=== PATIENT | female | born 1960 | race Caucasian/White ===

== ENCOUNTER 2016-11-15 18:00 | Inpatient (IN) | payer MEDICAID, MEDICARE ==
[2016-11-15] MEDS ORDERED: MAG HYDROX/AL HYDROX/SIMETH 30 ML CUP PO PRN (23:38)
[2016-11-15] MEDS ORDERED: MAGNESIUM HYDROXIDE 2,400 MG/10 ML CUP PO PRN (23:38)
[2016-11-15] MEDS ORDERED: ACETAMINOPHEN TAB 325 MG TAB PO PRN (23:38)
[2016-11-15] MEDS ORDERED: OLANZapine ODT 5 MG TAB PO PRN (23:43)
[2016-11-15] MEDS ORDERED: LORazepam 1 MG TAB PO PRN (23:46)
[2016-11-15] MEDS ORDERED: ZIPRASIDONE 20 MG CAP PO PRN (23:47)
[2016-11-15] MEDS ORDERED: LORazepam 2 MG/ML SYRINGE IM PRN (23:49)
[2016-11-15] MEDS ORDERED: ZIPRASIDONE 20 MG VIAL IM PRN (23:51)
[2016-11-16] MEDS ORDERED: ZIPRASIDONE 20 MG VIAL IM ONE (08:53)
[2016-11-16] MEDS ORDERED: WATER FOR INJECTION, STERILE 10 ML IV ONE (08:53)
[2016-11-16] MEDS: THYROID, PORK 30 MG TAB PO SCH (14:12)
[2016-11-16] MEDS: risperiDONE 1 MG TAB PO SCH ×2 (14:25→20:30)
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
[2016-11-16] MEDS: LISINOPRIL 20 MG TAB PO SCH (15:36)
[2016-11-17] MEDS: THYROID, PORK 30 MG TAB PO SCH (06:20)
[2016-11-17] MEDS: LISINOPRIL 20 MG TAB PO SCH (08:48)
[2016-11-17] MEDS: risperiDONE 1 MG TAB PO SCH ×2 (08:48→20:32)
--- NOTE | 2016-11-17 11:23 | P.PN ---
Progress Note - Text Interval history: The patient is found in her room she follows me to an interview room. The patient was admitted for an acute exacerbation of her psychosis with manic symptoms. She is known to this mental health service due to previous admissions. She has been restarted on Risperdal 1 mg twice daily she has been complying with it. She voices some concern that the Wellbutrin was held. Yesterday the patient was observed in the hallway quite agitated and irritable. That has improved somewhat today. She continues to be very delusional she continues to feel that the [employer] is persecuting her a number of different ways. This has been an ongoing delusion for her for several years. Mental status exam: The patient is an overweight female appearing her stated age. She is dressed in her own clothing her sweatshirt has stains on the front of the shirt. Eye contact is appropriate she has constant ongoing pressured speech. She will continue to talk if uninterrupted. Thought process is not well organized she demonstrates loose associations and tangential thinking. She continues to endorse persecutory delusions involving the [employer] and many other individuals. She states that the [employer] is able to telepathically review her thoughts. Insight and judgment are poor. She demonstrates no verbal or physical aggressiveness during this session. No abnormal involuntary movements observed. Plan: The patient has just been started on Risperdal 1 mg twice daily this will likely need further titration. We will monitor her for safety and encourage her appropriate participation in the milieu. When possible we will provide reality orientation. Vital signs reviewed.
[2016-11-18] MEDS: THYROID, PORK 30 MG TAB PO SCH (07:59)
[2016-11-18] MEDS: risperiDONE 1 MG TAB PO SCH ×2 (10:31→20:18)
[2016-11-18] MEDS: LISINOPRIL 20 MG TAB PO SCH (10:31)
--- NOTE | 2016-11-18 11:16 | P.PN ---
Progress Note - Text Interval history: The patient is found in the hallway she follows me to an interview room. She reports her mood is "good". His documented that she only slept 5 hours. She reports appetite is stable. She was observed attending groups this morning. She is feeling less irritable. She feels that the Risperdal was helpful but is resistant to the idea of titrating the dose further. Mental status exam: The patient is alert she is an overweight female appearing her stated age. She is dressed in the same clothing as yesterday. Speech is fluent spontaneous. She is less pressured and more easily directed during the session. She does continue to have the same fixed beliefs that are paranoid and persecutory in nature however she is much less agitated than previous days. Insight and judgment chronically limited. She demonstrates no verbal or physical aggressiveness. She is demonstrating no abnormal involuntary movements. She is oriented to person place and date. She denies having any suicidal or homicidal ideation intent or plan. Affect is constricted. Plan: The patient will continue on her current medication. She does appear improved in terms of affect lability and irritability. Psychosis persists but she does have psychosis at baseline. We will consider titrating the Risperdal further if needed. We will monitor her for safety and encourage her appropriate participation in the milieu.
[2016-11-19] MEDS: THYROID, PORK 30 MG TAB PO SCH (06:36)
[2016-11-19] MEDS: risperiDONE 1 MG TAB PO SCH ×2 (09:15→20:33)
[2016-11-19] MEDS: LISINOPRIL 20 MG TAB PO SCH (09:15)
--- NOTE | 2016-11-19 20:10 | PN ---
DATE OF SERVICE: 11/19/2016 CHIEF COMPLAINT: The patient was admitted due to increasing problems with paranoid delusions. She had focus on the [employer] being involved in her life in multiple ways. She believed that [employer] was doing nefarious things in the community and at her home. She believed that she was controlled by the [employer] and that they were stalking her and trying to murder family members. INTERVAL HISTORY: Patient has been doing fair. She had a quiet evening last night. She slept 5 hours. Today she has been up and about. She has been attending groups. In general, she has been fairly appropriate in most groups; however, in social skills group this afternoon she became very disruptive. She used hostile language. She was accusing staff and peers of abusing others. She made delusional statements. She was quite intense. She was asked to leave the group, which she did. Since then she has been fairly quiet. When I talked to the patient after that, she still was quite focused on paranoid thoughts. She talked extensively about the [employer] and various plots they had against her and others. She has not had change in her general health. She felt that the medication she was on was helping. She tolerated her psychotropic medications. MENTAL STATUS: The patient gave fair eye contact. Psychomotor activity was a little restless. Speech was clear. She answered some questions directly. She tended to ramble. She had almost flight of ideas, where she talked continuously at a somewhat rapid pace. Her thoughts were primarily delusional in nature, making any number of reference to things the [employer] was doing. She had loose association. Her affect was intense and anxious, her mood dysphoric. She was significantly distressed. ASSESSMENT AND PLAN: I will continue the current diagnosis and treatment plan. Will continue to make efforts to engage the patient is individual and group therapeutic activities. I will continue the patient on Risperdal. I will increase her dose from 1 mg twice a day to 3 mg twice a day. She also is prescribed Ativan p.r.n. We need to obtain lab work from a recent evaluation she had in [place]. Will continue to focus on stabilization and discharge planning. [facility]
[2016-11-20] MEDS: THYROID, PORK 30 MG TAB PO SCH (06:48)
[2016-11-20] MEDS: LISINOPRIL 20 MG TAB PO SCH (09:21)
[2016-11-20] MEDS: risperiDONE 1 MG TAB PO SCH ×2 (09:22→20:26)
[2016-11-21] MEDS: THYROID, PORK 30 MG TAB PO SCH (06:05)
[2016-11-21] MEDS: risperiDONE 1 MG TAB PO SCH ×2 (09:13→21:06)
[2016-11-21] MEDS: LISINOPRIL 20 MG TAB PO SCH (09:14)
--- NOTE | 2016-11-21 13:26 | PN ---
DATE OF SERVICE: 11/20/2016 CHIEF COMPLAINT: The patient was admitted due to increasing problems with paranoid delusions. She had focus on the [employer] being involved in her life in multiple ways. She believes that [employer] was doing various things in the community and at her home. She believes that she was being controlled by the [employer] and that they were stalking her and trying to murder family members. INTERVAL HISTORY: The patient has been doing fair. She had a quiet evening last night. She slept fairly well. Today she has been up and about. She does attend some groups. She comes out in the day area. She does not interact too much with others. Overall she seems to be a little more comfortable. She has voiced less in the way of thoughts about [employer] or other thoughts outside of reality. Her mood is somewhat improved. She feels that the combination of medications she is on is helpful. She is reluctant to make any changes in the doses. She has not had change in her general health. She tolerates psychotropic medications. MENTAL STATUS: The patient gave fair eye contact. Psychomotor activity was a little slow. Speech was somewhat monotone. She answered questions appropriately. Her thoughts were clear. She had a constricted affect. Her mood was reserved. It is difficult to say if she was in distress. She voiced less in the way of outright paranoid thinking compared to yesterday. ASSESSMENT: I will continue the current diagnosis and treatment plan. The patient will continue Risperdal just at 1 mg twice a day rather than the increase I had planned for yesterday. She is reluctant to increase medications , inspite of her continuing to have paranoid ideation. She will continue Wellbutrin XL 300 mg a day. The patient appears to be making progress. One significant issue is what follow up she will be able to attain, insurance issues are problematic for her in terms of getting appropriate follow thru [facility]. We will continue to focus on coordinating with outpatient resources for follow-up care. SUPRIYA
[2016-11-21] MEDS ORDERED: buPROPion XL 150 MG TAB.ER.24H PO SCH (21:00)
[2016-11-22] MEDS: THYROID, PORK 30 MG TAB PO SCH (06:36)
[2016-11-22 06:45] VITALS: BP 151/59; PULSE 86; RESP 20; TEMP 98.1
--- NOTE | 2016-11-22 10:10 | PN ---
DATE OF SERVICE: 11/21/2016 CHIEF COMPLAINT: The patient was admitted due to increasing problems with paranoid delusions. She had focused on the [employer] being involved in her life in multiple ways. She believes the [employer] was doing various things in the community and at her home. She believes that she was being controlled by the [employer] and that they were stalking her and trying to murder family members. INTERVAL HISTORY: The patient has been doing fair. She had a quiet evening last night. She slept fairly well. Today she has been up and about. She tends to keep to herself. She has been attending most groups and generally has been appropriate. Today she says that she is in a very good mood. She feels that she has made progress. She also feels that her medications have been helping her as far as having clear thoughts and a better outlook. She remains quite adamant about the idea that she does not want to make any changes in her medication doses. She feels the combination of Risperdal and Wellbutrin serve her best. She has not had change in her general health. She tolerates psychotropic medications. MENTAL STATUS: The patient gave good eye contact. Psychomotor activity was a little restless. Speech was clear. She answered questions with brief responses. Her affect was within reasonable range. She smiled. She was quite a bit more positive in her manner compared to how she was yesterday. She did not appear to be distress. ASSESSMENT: I will continue the current diagnosis and treatment plan. I will continue psychotropic medications the same. The patient is presenting in a much more positive mood today. It is unclear what contributes to the fairly significant change from yesterday. Main focus is on setting up discharge planning. The patient would have some preference of going to community mental health though she is not currently on Medicaid though she would be eligible. She talks about her preference of not returning to her home but rather moving to a foster home which is not an option due to insurance issues and her not being connected to [facility]. We will continue to focus on setting up discharge plan and coordinate with outpatient resources for follow- up care. SUPRIYA
[2016-11-22] MEDS: risperiDONE 1 MG TAB PO SCH (10:24)
[2016-11-22] MEDS: LISINOPRIL 20 MG TAB PO SCH (10:24)
[2016-11-22] MEDS ORDERED: LORazepam 0.5 MG TAB PO PRN (11:42)
--- NOTE | 2016-11-23 22:49 | DS ---
DATE OF ADMISSION: 11/15/2016 DATE OF ADMISSION: 11/22/2016 ADMISSION AND DISCHARGE DIAGNOSES: 1. Schizophrenia with acute exacerbation. 2. Hypertension. 3. Hypothyroidism. HISTORY OF PRESENTING ILLNESS: The patient has had multiple psychiatric hospitalizations. She presented to the hospital with increasing delusions of paranoid nature. She believed the [employer] was involved in her life in multiple ways. She believed the [employer] was controlling her and controlling people around her. She believed the [employer] was attempting to kill family members. She was having episodes of agitation, irritability, being argumentative. Her mood was depressed. She was significantly distressed relating to her paranoid delusions. She had rambling and disorganized thoughts. She had been taking Risperdal 1 mg twice a day and Wellbutrin 150 mg a day, though had stopped her medications at an unknown point prior to this admission. She was admitted for further evaluation. MEDICAL HISTORY: Patient has a history of hypertension and hypothyroidism. She takes lisinopril and is on thyroid replacement. PHYSICAL EXAM: The patient resisted having a physical exam. Her vital signs were stable. She was ambulatory. There was no indication of respiratory or cardiac signs. MENTAL STATUS EXAM: She was oriented and alert. She appeared in a disheveled manner. Speech was loud. Her thoughts were coherent, logical, though at times circumstantial and tangential. She showed evidence of paranoia. Mood was distressed. COURSE OF HOSPITALIZATION: Patient was admitted for comprehensive medical, psychiatric and psychosocial evaluation. We made efforts to engage the patient in individual and group therapeutic activities. She was continued on Risperdal 1 mg twice a day and Ativan 1 mg 3 times a day p.r.n. Early on in her hospitalization the patient was fairly withdrawn. She continued to be focused on terrible happenings in her life related to the [employer]. She would be out in the day area, though she did not interact much with others. She was quite resistant to attending any groups. She was cooperative. As her hospitalization progressed , the patient seemed to show gradual improvement. She resisted the idea of increasing her Risperdal, as was recommended. Thus she continued just on 1 mg twice a day. She had indicated that she felt Wellbutrin would be helpful to her. She was started on Wellbutrin XL 150 mg a day. After one dose she said that she did not want to continue taking it because it had some negative effects on her thinking. She was not clear on specifics. She noted that when she takes Ativan at night, it helps her sleep, and she believed that taking the Ativan at night plus the Risperdal was helping her improve her thoughts. As her hospitalization progressed she gradually improved, where she was much less focused on paranoid thinking. She was able to interact with others more appropriately. She had a fairly stable sleep pattern. She was able to begin attending some groups, though she declined attending others. She voiced no problems with her medications. Her mood improved to where she was able to show a positive manner. She was able to engage productively in discharge planning. There were some issues with her living situation, as she apparently lives in a family home. She did make contact with her sister and was able to work out a plan for discharge to where she would return home to where she was living, and that with her in the family they would work out further plans beyond that. Patient was able to productively engage in ( ) discharge planning. She showed no difficulties with her medications. CONDITION AT DISCHARGE: Patient was stable. Her mood was improved. She had significant reduction in paranoid thinking and did not actively discuss delusional issues such as the [employer]. She tolerated her medications well. There was no indication of EPS or signs of tardive dyskinesia. RECOMMENDATIONS AND FOLLOWUP: The patient is discharged to home. Discharge medications include: 1. Risperdal 1 mg twice a day. 2. Ativan 0.5 mg 3 times a day p.r.n. In addition, she will continue lisinopril 20 mg a day and [place] Thyroid 180 mg daily. Medicines that she had indicated being on prior to admission that were discontinued included Wellbutrin SR 150 mg a day. She will be seen at [facility] with a follow-up appointment on 11/[address] [facility]
== END 2016-11-22 16:19 | disposition home or self-care (01) | DRG 885 ==
LOC: 3MHU 22:16
PROVIDERS: ADMIT Psychiatry & Neurology Psychiatry; ATTEND Psychiatry & Neurology Psychiatry
DX: F23 Brief psychotic disorder (principal); Z91.14 Patient's other noncompliance with medication regimen; I10 Essential (primary) hypertension; E03.9 Hypothyroidism, unspecified; Z79.899 Other long term (current) drug therapy

== ENCOUNTER 2017-06-10 00:01 | Emergency (ER) | payer MEDICARE, OTHER ==
--- NOTE | 2017-06-10 00:42 | XR ---
EXAMINATION TYPE: XR chest 2V DATE OF EXAM: 06/10/2017 COMPARISON: 03/23/2010 HISTORY: Cough TECHNIQUE: Frontal and lateral views of the chest are obtained. FINDINGS: There is some mild linear density in the lingula left upper lobe. There is no heart failur e. Heart size is normal. There is no pleural effusion. Bony thorax is intact. Heart size is normal. T here is small linear density also in the right midlung. IMPRESSION: Bilateral scarring or subsegmental atelectasis is increased compared to old exam. No hea rt failure. No pulmonary consolidation.
--- NOTE | 2017-06-10 00:44 | ED ---
URI HPI - General Chief Complaint: Upper Respiratory Infection Stated Complaint: infection Time Seen by Provider: 06/10/17 00:12 Source: patient, RN notes reviewed Mode of arrival: ambulatory Limitations: no limitations - History of Present Illness Initial Comments: This is a 56-year-old female presents to the emergency department with chief complaint of "infection." Patient is a very poor historian. She states that she has a cough and shortness of breath. She states that she is a current, every day smoker. She states that she feels like her sinuses are draining. She says that she has had fevers and chills. Denies abdominal pain, nausea or vomiting, diarrhea or constipation. She states that she believes she has a bacterial infection. She requests to have her thyroid checked. She requests to have lab work performed. - Related Data Home Medications Medication Instructions Recorded Confirmed Lisinopril [Prinivil] 20 mg PO DAILY 10/26/15 11/15/16 Thyroid, Pork [[place] Thyroid] 180 mg PO DAILY 11/15/16 11/15/16 Previous Rx's Medication Instructions Recorded risperiDONE [RisperDAL] 1 mg PO DAILY #30 tab 11/01/15 LORazepam [Ativan] 0.5 mg PO TID PRN #90 tab 11/22/16 risperiDONE [RisperDAL] 1 mg PO BID #60 tab 11/22/16 Albuterol Inhaler [Ventolin Hfa 1 - 2 puff INHALATION Q6HR PRN #1 06/10/17 Inhaler] inhaler Azithromycin [Zithromax Z-pack] 0 mg PO DIRECTED #6 tab 06/10/17 Levothyroxine Sodium [Levo-T] 50 mcg PO DAILY #14 tablet 06/10/17 Allergies Allergy/AdvReac Type Severity Reaction Status Date / Time meperidine HCl [From Demerol] Allergy Unknown Verified 06/10/17 00:11 Review of Systems ROS Statement: Those systems with pertinent positive or pertinent negative responses have been documented in the HPI. ROS Other: All systems not noted in ROS Statement are negative. Past Medical History Past Medical History: Hypertension, Thyroid Disorder History of Any Multi-Drug Resistant Organisms: None Reported Additional Past Surgical History / Comment(s): sinus surgery Past Anesthesia/Blood Transfusion Reactions: No Reported Reaction Past Psychological History: Anxiety, Schizoaffective Disorder, Schizophrenia Smoking Status: Current every day smoker Past Alcohol Use History: None Reported Past Drug Use History: None Reported General Exam - General Exam Comments Initial Comments: General: Awake and alert, well-developed; in no apparent distress. Patient is unkempt in appearance. 3 suitcases are present at bedside. HEENT: Head atraumatic, normocephalic. Pupils are equal, round and reactive to light. Extraocular movements intact. Oropharynx moist without erythema or exudate. Neck: Supple. Normal ROM. Cardiovascular: Regular rate and rhythm. No murmurs, rubs or gallops. Chest symmetrical. Respiratory: Normal respiratory effort with no use of accessory muscles. Diffuse rales with diminished airflow throughout. No wheezing or rhonchi. Abdomen: Soft, non-tender, non-distended. No rigidity, rebound or guarding. Normal bowel sounds in all 4 quadrants. Musculoskeletal: Normal ROM, no tenderness bilateral upper and lower extremities. Ambulating normally. Skin: [place], warm and dry without rashes or lesions. Neurological: Alert and oriented x3. CN II-XII grossly intact. Speech is fluent and answers are appropriate. No focal neuro deficits. Psychiatric: Unkempt in appearance. Poor insight and poor historian. Limitations: no limitations Course Vital Signs 06/10/17 00:06 Temperature 97.8 F Pulse Rate 93 Respiratory 18 Rate Blood Pressure 120/77 O2 Sat by Pulse 95 Oximetry Medical Decision Making - Medical Decision Making This is a 56-year-old female who presents to the emergency department with chief complaint of cough. Patient arrives to the emergency department with 3 full suitcases, stating that she knows she is going to be admitted. She states she feels she has a serious bacterial infection. She requests lab work and to have her thyroid checked. Patient's vital signs are stable and she is afebrile. On physical examination, there are diffuse rhonchi and diminished air flow throughout. Patient is in no respiratory distress. Chest x-ray revealed bilateral scarring or subsegmental atelectasis, however no heart failure or pulmonary consolidation. Patient denies any chest pain, abdominal pain, nausea or vomiting. Clinically patient does appear to have bronchitis. She will be started on azithromycin. I recommended steroids but patient refuses. She will also be provided with an albuterol inhaler. Patient requests to have her levothyroxin refilled until she is able to follow-up with her family doctor. She is on levothyroxin 50 g. I will give patient 2 weeks supply. Patient's vital signs are stable and she is in no acute distress. She will be discharged home. She is in agreement and voices understanding. All questions were answered. - Radiology Data Radiology results: report reviewed Chest x-ray impression: Bilateral scarring or subsegmental atelectasis is increased compared to old exam. No heart failure. No pulmonary consolidation. Disposition Clinical Impression: Bronchitis Disposition: HOME SELF-CARE Condition: Good Instructions: Acute Bronchitis (ED), Wheezing (ED) Additional Instructions: Please take medications as prescribed. Please follow up with primary care provider within 1-2 days. Return to emergency department if symptoms should worsen or any concerns arise. Prescriptions: Albuterol Inhaler [Ventolin Hfa Inhaler] 1 - 2 puff INHALATION Q6HR PRN #1 inhaler PRN Reason: Dyspnea Azithromycin [Zithromax Z-pack] 0 mg PO DIRECTED #6 tab Levothyroxine Sodium [Levo-T] 50 mcg PO DAILY #14 tablet Referrals: Ric Berkowitz DO [Primary Care Provider] - 1-2 days Time of Disposition: 00:55
[2017-06-10 01:29] VITALS: BP 130/81; PULSE 82; RESP 18; TEMP 98.1
== END 2017-06-10 01:28 | disposition home or self-care (01) ==
LOC: EC 00:01
DX: J40 Bronchitis, not specified as acute or chronic (principal); I10 Essential (primary) hypertension; E07.9 Disorder of thyroid, unspecified; F17.200 Nicotine dependence, unspecified, uncomplicated; Z79.899 Other long term (current) drug therapy; Z88.8 Allergy status to other drugs, medicaments and biological substances
CPT/HCPCS: 71046; 99283

== ENCOUNTER 2017-06-10 18:01 | Emergency (ER) | payer MEDICARE ==
[2017-06-10 18:31] VITALS: RESP 18; TEMP 98.7
--- NOTE | 2017-06-10 18:54 | ED ---
Psych HPI - General Chief Complaint: Psychiatric Symptoms Stated Complaint: Mental health Time Seen by Provider: 06/10/17 18:32 Source: patient, RN notes reviewed Mode of arrival: ambulatory Limitations: no limitations - History of Present Illness Initial Comments: This a 56-year-old female presents emergency Department chief complaint of psychiatric issues. Patient states that she feels that she needs to be admitted for her depression. Patient is having worsening depression, grief issues. Patient states that she does take medications for depression. Patient states he recently moved back from [place]. Patient states that she was kicked out of her house states that she has no place to live at this time states that she's having heart issues and multiple other social financial issues. Patient states that she wants to be admitted secondary to her depression. Denies any suicidal or homicidal ideation. Denies any illicit drug use no alcohol abuse. - Related Data Home Medications Medication Instructions Recorded Confirmed Albuterol Inhaler [Ventolin Hfa 1 - 2 puff INHALATION RT-Q6H PRN 06/10/17 Inhaler] Azithromycin [Zithromax Z-pack] See Taper PO DIRECTED 06/10/17 06/10/17 risperiDONE [RisperDAL] 2 mg PO HS 06/10/17 06/10/17 Previous Rx's Medication Instructions Recorded Levothyroxine Sodium [Levo-T] 50 mcg PO DAILY #14 tablet 06/10/17 Allergies Allergy/AdvReac Type Severity Reaction Status Date / Time meperidine HCl [From Demerol] Allergy Unknown Verified 06/10/17 18:57 Review of Systems ROS Statement: Those systems with pertinent positive or pertinent negative responses have been documented in the HPI. ROS Other: All systems not noted in ROS Statement are negative. Past Medical History Past Medical History: Hypertension, Thyroid Disorder History of Any Multi-Drug Resistant Organisms: None Reported Additional Past Surgical History / Comment(s): sinus surgery Past Anesthesia/Blood Transfusion Reactions: No Reported Reaction Past Psychological History: Anxiety, Schizoaffective Disorder, Schizophrenia Smoking Status: Current every day smoker Past Alcohol Use History: None Reported Past Drug Use History: None Reported General Exam Limitations: no limitations General appearance: alert, in no apparent distress Head exam: Present: atraumatic, normocephalic, normal inspection Eye exam: Present: normal appearance, PERRL, EOMI. Absent: scleral icterus, conjunctival injection, periorbital swelling ENT exam: Present: normal exam, normal oropharynx, mucous membranes moist, TM's normal bilaterally, normal external ear exam Neck exam: Present: normal inspection, full ROM. Absent: tenderness, meningismus, lymphadenopathy Respiratory exam: Present: normal lung sounds bilaterally. Absent: respiratory distress, wheezes, rales, rhonchi, stridor Cardiovascular Exam: Present: regular rate, normal rhythm, normal heart sounds. Absent: systolic murmur, diastolic murmur, rubs, gallop, clicks GI/Abdominal exam: Present: soft, normal bowel sounds. Absent: distended, tenderness, guarding, rebound, rigid Neurological exam: Present: alert, oriented X3, CN II-XII intact Psychiatric exam: Present: depressed Skin exam: Present: warm, dry, intact, normal color. Absent: rash Course Vital Signs 06/10/17 18:28 Temperature 98.7 F Pulse Rate 78 Respiratory 18 Rate Blood Pressure 124/77 O2 Sat by Pulse 98 Oximetry Medical Decision Making - Medical Decision Making 56-year-old female presented emergency department for psychiatric evaluation. Patient has underlying depression and currently is homeless. Patient was evaluated by EPS case discussed with psychiatrist. Patient also had an intake with [facility] today in which she was not suicidal. Patient will be given a bus ticket to get to the [facility]. Return parameters were discussed. - Lab Data Lab Results 06/10/17 Range/Units 18:50 Urine Opiates Screen Not Detected (NotDetected) Ur Oxycodone Screen Not Detected (NotDetected) Urine Methadone Screen Not Detected (NotDetected) Ur Propoxyphene Screen Not Detected (NotDetected) Ur Barbiturates Screen Not Detected (NotDetected) U Tricyclic Antidepress Not Detected (NotDetected) Ur Phencyclidine Scrn Not Detected (NotDetected) Ur Amphetamines Screen Not Detected (NotDetected) U Methamphetamines Scrn Not Detected (NotDetected) U Benzodiazepines Scrn Not Detected (NotDetected) Urine Cocaine Screen Not Detected (NotDetected) U Marijuana (THC) Screen Not Detected (NotDetected) Disposition Clinical Impression: Depression, Homelessness Disposition: HOME SELF-CARE Condition: Stable Instructions: Depression (ED) Additional Instructions: Please return to the Emergency Department if symptoms worsen or any other concerns. Referrals: Ric Berkowitz DO [Primary Care Provider] - 1-2 days Time of Disposition: 19:56
[2017-06-10 19:10] LABS: Amphetamine Screen,Urine Not Detected (NotDetected); Barbiturate Screen,Urine Not Detected (NotDetected); Benzodiazepines Screen,Urine Not Detected (NotDetected); Cocaine Screen,Urine Not Detected (NotDetected); Methadone Screen, Urine Not Detected (NotDetected); Opiate Screen,Urine Not Detected (NotDetected); Oxycodone Screen, Urine Not Detected (NotDetected); Phencyclidine Screen,Urine Not Detected (NotDetected); Tricyclic Antidepressant,Urine Not Detected (NotDetected); Urn Cannabinoid Scrn Not Detected (NotDetected)
[2017-06-10 20:33] VITALS: BP 159/79; PULSE 106
== END 2017-06-10 20:34 | disposition home or self-care (01) ==
LOC: EC 18:01
DX: F32.9 Major depressive disorder, single episode, unspecified (principal); Z59.0 Homelessness; F20.9 Schizophrenia, unspecified; F41.9 Anxiety disorder, unspecified; F17.200 Nicotine dependence, unspecified, uncomplicated; Z79.899 Other long term (current) drug therapy; Z88.5 Allergy status to narcotic agent
CPT/HCPCS: 80306; 82075; 99284

== ENCOUNTER 2017-11-10 14:11 | Inpatient (IN) | payer MEDICARE, MEDICAID ==
[2017-11-10] MEDS ORDERED: LORazepam 1 MG TAB PO STA (14:43)
--- NOTE | 2017-11-10 14:55 | ED ---
Psych HPI - General Chief Complaint: Psychiatric Symptoms Stated Complaint: Mental Health Time Seen by Provider: 11/10/17 14:34 Source: patient, RN notes reviewed Mode of arrival: ambulatory - History of Present Illness Initial Comments: This is a 57-year-old female who presents to the emergency department for mental health evaluation. Patient states that she is feeling suicidal. She states that the FBI, police and government are after her. She states that they have been doing experiments on her. She states they have been using her thyroid for endocrine studies, have been using electronics and shocking her, and have been doing medication studies on her. She states that she was beautiful and only 120 pounds and walking 10 miles daily. She states that the government has made her fat. She states that [employer] used her to get into the [place]. She states that the [place] police are also after her and are stalking her. She states the Government killed her mother on 04/05/2017. She states that she has an inheritance from her parents after they and that the government is also after her money. Patient states that she does take Risperdal, a thyroid medication and lisinopril. She states that she has been feeling suicidal on and off for the past 4 years. She denies any homicidal ideation. She denies any suicidal plans. Denies illicit drug use but does state that she drinks alcohol occasionally. Denies any recent illnesses or infections. Denies fevers or chills, chest pain or shortness of breath, abdominal pain, nausea or vomiting, diarrhea or constipation, dysuria or hematuria, weakness, numbness, dizziness or headache. - Related Data Home Medications Medication Instructions Recorded Confirmed Amoxicillin 500 mg PO DAILY 11/10/17 11/10/17 Lisinopril [Zestril] 10 mg PO DAILY 11/10/17 11/10/17 risperiDONE ODT [RisperDAL M-TAB] 2 mg PO HS 11/10/17 11/10/17 Previous Rx's Medication Instructions Recorded Levothyroxine Sodium [Levo-T] 50 mcg PO DAILY #14 tablet 06/10/17 Allergies Allergy/AdvReac Type Severity Reaction Status Date / Time meperidine HCl [From Demerol] Allergy Unknown Verified 11/10/17 16:09 olanzapine [From Zyprexa] Allergy Unknown Verified 11/10/17 16:09 paliperidone [From Invega] Allergy Unknown Verified 11/10/17 16:09 Review of Systems ROS Statement: Those systems with pertinent positive or pertinent negative responses have been documented in the HPI. ROS Other: All systems not noted in ROS Statement are negative. Past Medical History Past Medical History: Hypertension, Thyroid Disorder History of Any Multi-Drug Resistant Organisms: None Reported Additional Past Surgical History / Comment(s): sinus surgery Past Anesthesia/Blood Transfusion Reactions: No Reported Reaction Past Psychological History: Anxiety, Schizoaffective Disorder, Schizophrenia Smoking Status: Current every day smoker Past Alcohol Use History: None Reported Past Drug Use History: None Reported General Exam - General Exam Comments Initial Comments: General: Awake and alert, well-developed; in no apparent distress. Disheveled in appearance. HEENT: Head atraumatic, normocephalic. Pupils are equal, round and reactive to light. Extraocular movements intact. Oropharynx moist without erythema or exudate. Neck: Supple. Normal ROM. Cardiovascular: Regular rate and rhythm. No murmurs, rubs or gallops. Chest symmetrical. Respiratory: Lungs clear to auscultation bilaterally. No wheezes, rales or rhonchi. Normal respiratory effort with no use of accessory muscles. Abdomen: Soft, non-tender, non-distended. No rigidity, rebound or guarding. Musculoskeletal: Normal ROM, no tenderness bilateral upper and lower extremities. Ambulating normally. Skin: [place], warm and dry without rashes or lesions. Neurological: Alert and oriented x3. CN II-XII grossly intact. Speech is fluent. No focal neuro deficits. Psychiatric: Paranoid and delusional. Anxious. Hyperverbal. Limitations: no limitations Course Vital Signs 11/10/17 14:13 Temperature 98.7 F Pulse Rate 119 H Respiratory 22 Rate Blood Pressure 151/87 O2 Sat by Pulse 95 Oximetry Medical Decision Making - Medical Decision Making 57-year-old female who presents to the emergency department for mental health evaluation. Patient was evaluated by EPS and they are recommending admission to the psychiatric unit here. Vital signs stable and patient is in no acute distress. - Lab Data Lab Results 11/10/17 Range/Units 14:47 Urine Opiates Screen Not Detected (NotDetected) Ur Oxycodone Screen Not Detected (NotDetected) Urine Methadone Screen Not Detected (NotDetected) Ur Propoxyphene Screen Not Detected (NotDetected) Ur Barbiturates Screen Not Detected (NotDetected) U Tricyclic Antidepress Not Detected (NotDetected) Ur Phencyclidine Scrn Not Detected (NotDetected) Ur Amphetamines Screen Not Detected (NotDetected) U Methamphetamines Scrn Not Detected (NotDetected) U Benzodiazepines Scrn Not Detected (NotDetected) Urine Cocaine Screen Not Detected (NotDetected) U Marijuana (THC) Screen Not Detected (NotDetected) Disposition Clinical Impression: Psychosis Disposition: ADMITTED IP TO THIS HOSP Condition: Fair Is patient prescribed a controlled substance at d/c from ED?: No Referrals: Ric Berkowitz DO [Primary Care Provider] - 1-2 days Time of Disposition: 16:39
[2017-11-10 15:19] LABS: Amphetamine Screen,Urine Not Detected (NotDetected); Barbiturate Screen,Urine Not Detected (NotDetected); Benzodiazepines Screen,Urine Not Detected (NotDetected); Cocaine Screen,Urine Not Detected (NotDetected); Methadone Screen, Urine Not Detected (NotDetected); Opiate Screen,Urine Not Detected (NotDetected); Oxycodone Screen, Urine Not Detected (NotDetected); Phencyclidine Screen,Urine Not Detected (NotDetected); Tricyclic Antidepressant,Urine Not Detected (NotDetected); Urn Cannabinoid Scrn Not Detected (NotDetected)
[2017-11-10] MEDS ORDERED: ZIPRASIDONE 20 MG VIAL IM PRN (17:17)
[2017-11-10] MEDS ORDERED: MAGNESIUM HYDROXIDE 2,400 MG/10 ML CUP PO PRN (17:17)
[2017-11-10] MEDS ORDERED: MAG HYDROX/AL HYDROX/SIMETH 30 ML CUP PO PRN (17:17)
[2017-11-10] MEDS ORDERED: LORazepam 1 MG TAB PO PRN (17:17)
[2017-11-10] MEDS ORDERED: ACETAMINOPHEN TAB 325 MG TAB PO PRN (17:17)
[2017-11-10] MEDS ORDERED: NICOTINE 14MG/24HR PATCH TRANSDERM SCH (17:30)
[2017-11-10 18:27] VITALS: TEMP 98.8; BMI 46.0
[2017-11-10] MEDS ORDERED: LORazepam 2 MG/ML INJ IM PRN (19:16)
[2017-11-10] MEDS ORDERED: risperiDONE ODT 2 MG TAB PO SCH (21:00)
[2017-11-11] MEDS: LEVOTHYROXINE 50 MCG TAB PO SCH (08:28)
[2017-11-11] MEDS: AMOXICILLIN 500 MG CAP PO SCH (08:28)
[2017-11-11] MEDS: LISINOPRIL 10 MG TAB PO SCH (08:28)
[2017-11-11 08:50] LABS: ALT 38 U/L (9-52); AST 20 U/L (14-36); Albumin 3.8 g/dL (3.5-5.0); Alkaline Phosphatase 95 U/L (38-126); Anion Gap 8 mmol/L; Basophils % (A) 1 %; Bilirubin, Delta 0.2 mg/dL (0.0-0.2); Bilirubin,Unconjugated 0.2 mg/dL (0.0-1.1); Blood Urea Nitrogen 15 mg/dL (7-17); Calcium 9.1 mg/dL (8.4-10.2); Carbon Dioxide 25 mmol/L (22-30); Chloride 105 mmol/L (98-107); Cholesterol 169 mg/dL (<200); Eosinophils # (A) 0.4 k/uL (0-0.7); Eosinophils % (A) 7 %; Glucose 122 mg/dL (74-99); HCT 42.5 % (34.0-46.0); HDL Cholesterol 40 mg/dL (40-60); HGB 13.5 gm/dL (11.4-16.0); LDL Cholesterol,Calculated 95 mg/dL (0-99); Lymphocytes # (A) 0.9 k/uL (1.0-4.8); Lymphocytes % (A) 14 %; MCH 29.3 pg (25.0-35.0); MCHC 31.7 g/dL (31.0-37.0); MCV 92.6 fL (80.0-100.0); Mean Platelet Volume 7.2; Monocytes # (A) 0.4 k/uL (0-1.0); Monocytes % (A) 6 %; Neutrophils # (A) 4.6 k/uL (1.3-7.7); Neutrophils % (A) 71 %; Platelet Count 256 k/uL (150-450); Potassium 4.7 mmol/L (3.5-5.1); RBC 4.59 m/uL (3.80-5.40); RDW 13.5 % (11.5-15.5); Sodium 138 mmol/L (137-145); Total Bilirubin 0.4 mg/dL (0.2-1.3); Total Protein 6.1 g/dL (6.3-8.2); Triglycerides 170 mg/dL (<150); WBC 6.5 k/uL (3.8-10.6)
[2017-11-11] MEDS: ARIPiprazole 10 MG TAB PO SCH (09:53)
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
--- NOTE | 2017-11-11 14:20 | CONS ---
CONSULTATION DATE OF SERVICE: 11/11/2017 This 57-year-old woman admitted with multiple medical problems, who refused to be seen in consultation because of psychosis. MMODL / IJN: [id number] /
[2017-11-11 18:16] LABS: Hemoglobin A1C 6.3 % (4.0-6.0)
[2017-11-12] MEDS: LEVOTHYROXINE 50 MCG TAB PO SCH (08:52)
[2017-11-12] MEDS: AMOXICILLIN 500 MG CAP PO SCH (08:52)
[2017-11-12] MEDS: LISINOPRIL 10 MG TAB PO SCH (08:52)
[2017-11-12] MEDS: ARIPiprazole 10 MG TAB PO SCH (08:52)
--- NOTE | 2017-11-12 10:26 | P.MDCNMH ---
History of Present Illness H&P Date: 11/12/17 57-year-old female was admitted to the mental health unit for psychosis and. I. Dr. Berkowitz is the patient's primary care physician and was consulted for medical management. The patient was seen and examined this morning in the mental health unit. The patient remains very paranoid and evaluation was difficult to keep on track. Patients only medical complaint was her weight and stated she needed to get back to weight watchers to lose weight. She denied SOB, chest pain, nausea, vomiting, lightheadedness, or dizziness. Patients vital signs have been stable. Patient is slightly tachycardic with a heart rate in the low 100s which may be secondary to anxiety. TSH is within normal limits. Review of Systems Those systems with pertinent positive or pertinent negative responses have been documented in the HPI Past Medical History Past Medical History: Hypertension, Thyroid Disorder History of Any Multi-Drug Resistant Organisms: None Reported Additional Past Surgical History / Comment(s): sinus surgery Past Anesthesia/Blood Transfusion Reactions: No Reported Reaction Smoking Status: Current every day smoker Medications and Allergies Home Medications Medication Instructions Recorded Confirmed Type Levothyroxine Sodium [Levo-T] 50 mcg PO DAILY #14 tablet 06/10/17 11/10/17 Rx Amoxicillin 500 mg PO DAILY 11/10/17 11/10/17 History Lisinopril [Zestril] 10 mg PO DAILY 11/10/17 11/10/17 History risperiDONE ODT [RisperDAL M-TAB] 2 mg PO HS 11/10/17 11/10/17 History Allergies Allergy/AdvReac Type Severity Reaction Status Date / Time meperidine HCl [From Demerol] Allergy Unknown Verified 11/10/17 16:09 olanzapine [From Zyprexa] Allergy Unknown Verified 11/10/17 16:09 paliperidone [From Invega] Allergy Unknown Verified 11/10/17 16:09 Physical Exam Vitals: Vital Signs Pulse Resp BP 11/12/17 08:54 97 16 142/84 GENERAL: This is a 57-year-old female in no apparent distress at the time of examination. HEENT: Head is atraumatic, normocephalic. Pupils are equal, round, and reactive to light. Sclerae anicteric. Conjunctivae are clear. Mucus membranes of the mouth are moist. Neck is supple. RESPIRATORY: Clear to ausculation. No wheezes, rales, or rhonchi. No use of accessory muscles. Patient maintaining oxygen saturation greater than 92%. No chest wall tenderness is noted on palpation or with deep breathing. CARDIOVASCULAR: Regular rate and rhythm. S1 and S2 noted. No systolic or diastolic murmur auscultated. No JVD noted. No S3 or S4 noted. GASTROINTESTINAL: No distention noted. Abdomen soft and round. Normal active bowel sounds auscultated x 4 quadrants. No pain or tenderness noted upon palpation. INTEGUMENTARY: No cyanosis. No jaundice. No rashes noted. No cellulitis noted. EXTREMITIES: 2+ peripheral pulses. No evidence of peripheral edema. No calf tenderness noted. PSYCHIATRIC: Awake, alert, and oriented X 3. Cranial Nerve Examination - Cranial Nerves Cranial Nerve I- Olfactory: Intact Cranial Nerve II- Optic: Intact Cranial Nerve III- Oculomotor: Intact Cranial Nerve IV- Trochlear: Intact Cranial Nerve V- Trigeminal: Intact Cranial Nerve - Abducens: Intact Cranial Nerve VII- Facial: Intact Cranial Nerve VIII- Auditory: Intact Cranial Nerve IX- Glossopharyngeal: Intact Cranial Nerve X- Vagus: Intact Cranial Nerve XI- Accessory: Intact Cranial Nerve XII- Hypoglossal: Intact Results CBC & Chem 7: 11/11/17 08:12 11/11/17 08:12 Labs: Abnormal Lab Results - Last 24 Hours (Table) 11/11/17 Range/Units 08:12 Hemoglobin A1c 6.3 H (4.0-6.0) % Assessment and Plan Plan: ASSESSMENT: Schizophrenia Hypertension Hypothyroidism Obesity: BMI 46.1 Nicotine dependence, patient is a current cigarette smoker Recent diagnosis of sinusitis, treated outpatient PLAN: Continue psychiatric care per Dr. Salvador Nicotine patch Patient to complete 7 days of amoxicillin for recent sinus infection then DC medication Home meds as appropriate Monitor labs Monitor vital signs and address as appropriate Further recommendations pending patient's course Thank you for this consultation. Please do not hesitate to contact us with any questions. Nurse practitioner note has been reviewed by physician. Signing provider agrees with the documented findings, assessment, and plan of care.
[2017-11-12] MEDS: NICOTINE 21MG/24HR PATCH TRANSDERM SCH (10:55)
--- NOTE | 2017-11-12 12:42 | P.PN ---
Progress Note - Text Progress Note Date: 11/12/17 Interval History: Patient is a 57-year-old female who was seen today, she continued to discuss her concerns regarding the [employer] penetrating with cell phones , manipulating people who are connected to her such as myself. She states that they are trying to hit her intelligence and/or her health and she had to run to the hospital to protect herself. Patient states that she feels her brother and sister "murdered" her mother and that the [employer] has been illegally drugging people. She states that she sounds like she is drugged currently. She says that her guardian's intelligence is below hers and she doesn't want attention and isn't grandiose. She then went on to discuss a green mist that shows if the has been surveilling. She states that that they are surveilling everyone and using their genetics through their throats to control them. Patient denied that she was having any side effects from the medication and states that she feels safe in the hospital. Mental Status: Appearance/Attitude: Patient is dressed in a hospital gown, has stringy hair makes intermittent eye contact and was cooperative Behavior: Patient does not exhibit any psychomotor agitation or retardation. Speech/Language: Patient's speech is spontaneous, she is difficult to interrupt speaks in a normal volume and is coherent Thought Process: Patient exhibits flight of ideas as she is focused on the [employer] and government and will jump from one topic to another, needing redirection to return to the question at hand. Thought Content: Patient denies auditory or visual hallucination and continues to discuss delusions regarding the [employer] and government drugging her, has grandiose ideation that her intelligence is higher than everyone, that she has a doctorate in alternative medicine. Patient states that she did not sleep well last night, her appetite is fair. Patient states that she feels safe here and had to run to the hospital to protect herself from being manipulated by the [employer]. Suicidal/Homicidal Ideation: She denies any current suicidal or homicidal ideation Sensorium/Cognition: Patient is alert and oriented to person, place, time and her recent and remote memory are grossly intact Mood/Affect: Patient's mood is guarded and her affect is slightly blunted Insight/Judgment: Patient's insight and judgment are limited Assessment: Patient continues to verbalize ongoing delusions regarding the [employer], being manipulated, controlled with drugged by them. She also exhibited grandiose delusions regarding her level of intelligence, she has a doctorate in alternative medicine and has multiple other college degrees and needs redirection to return to the topic at hand, patient states that she came here to be safe to avoid being prescribed manipulated by the [employer]. Patient reported no side effects from medication. She is sleeping 3 hours a night. Patient presents with symptoms of bipolar disorder, current episode of being manic with psychotic symptoms that she has grandiose delusions and her speech is pressured however not rapid. Patient needs redirection to return to questions of been asked otherwise the patient will discontinue speaking and jumping from one idea to another about her multiple delusions. Plan: We'll continue the patient on Abilify 10 mg to target her mood and psychotic symptoms and consider increasing it to 15 mg tomorrow. Patient continues to require hospitalization to stabilize her mood and psychotic symptoms.
[2017-11-13] MEDS: LEVOTHYROXINE 50 MCG TAB PO SCH ×2 (06:02→08:57)
[2017-11-13] MEDS: LISINOPRIL 10 MG TAB PO SCH (08:57)
[2017-11-13] MEDS: ARIPiprazole 10 MG TAB PO SCH (08:57)
[2017-11-13] MEDS: AMOXICILLIN 500 MG CAP PO SCH (08:57)
[2017-11-13] MEDS: NICOTINE 21MG/24HR PATCH TRANSDERM SCH (08:58)
[2017-11-13] MEDS ORDERED: ARIPiprazole 5 MG TAB PO STA (12:04)
--- NOTE | 2017-11-13 13:41 | P.PN ---
Progress Note - Text Progress Note Date: 11/13/17 Interval History: Patient is a 57-year-old female who states that she Naps during the day and feels she didn't sleep last night. She states that she is not playing games or not covering up anything, then stated that "what I think it is what will work". She states that she needs to stay close to doctors, needs a car and needs to find a psychologist. Patient stated she wasn't suicidal or homicidal reported no auditory or visual hallucinations patient again questioned whether she needs Abilify or she would do better on an antidepressant. Mental Status: Appearance/Attitude: Patient is dressed in a hospital gown, her hair remains stringy and uncombed and she makes eye contact and is cooperative. Behavior: Patient does not exhibit any psychomotor agitation or retardation. Speech/Language: patient's speech remains pressured, needs verbal redirection to stay on topic, she speaks in a normal volume and rhythm and is coherent Thought Process: patient remains focused on her delusional ideation that the [employer] is after her, no flight of ideas or loose associations were elicited , patient will continue to talk about her delusional ideation in a nonstop fashion. Thought Content: patient denies auditory or visual hallucinations and continues to verbalize paranoid ideation that the [employer] is after her, the [employer] is trying to use her, as well as grandiose thoughts. Patient slept 1 hour last night, states that she is eating well. Patient continues to question whether she needs to be on medication and is concerned about side effects when she is on a large dose of anything. Suicidal/Homicidal Ideation: patient denied any current suicidal or homicidal ideation. Sensorium/Cognition: Patient is alert and oriented to person, place, and time and her recent remote memory grossly intact Mood/Affect: patient's mood is guarded and her affect slightly blunted Insight/Judgment: patient's insight and judgment are poor Assessment: patient slept for only 1 hour last night, continues to verbalize paranoid and grandiose delusions. Patient complains that she doesn't require high doses of medication and is concerned that Abilify is the wrong medication for but has been compliant with her medications. Patient is not reporting any side effects from the medication and has not been attending any groups or activities. Plan: patient's Abilify will be increased to 15 mg in the morning, patient continues to require hospitalization to stabilize her mood and psychotic symptoms.
[2017-11-14] MEDS: LISINOPRIL 10 MG TAB PO SCH (09:00)
[2017-11-14] MEDS: LEVOTHYROXINE 50 MCG TAB PO SCH (09:00)
[2017-11-14] MEDS: AMOXICILLIN 500 MG CAP PO SCH (09:00)
[2017-11-14] MEDS: ARIPiprazole 15 MG TAB PO SCH (09:00)
[2017-11-14] MEDS: NICOTINE 21MG/24HR PATCH TRANSDERM SCH (09:03)
--- NOTE | 2017-11-14 12:08 | P.PN ---
Progress Note - Text Progress Note Date: 11/14/17 Interval History: Patient is a 57-year-old female who was seen today and she reports that she thinks her blood pressure is being affected by her Abilify. She stated that she also feels overmedicated. Patient is unable to tell me what she means by being overmedicated then stated that she doesn't feel as intelligent as she did on 10 mg of Abilify. Patient states that she feels she slept more than 4 hours last night. Patient also stated that she doesn't require medication for schizophrenia because she was told at [facility] that she doesn't have schizophrenia because they were showed films and she had a computed tomography scan. 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 Patient had no other complaints Mental Status: Appearance/Attitude: Patient is dressed in a hospital gown, makes intermittent eye contact and is superficially cooperative Behavior: Patient did not display any psychomotor agitation or retardation. Speech/Language: Patient's speech was not as pressured, she spoke in a normal volume and rhythm and was coherent Thought Process: Patient was goal-directed, no evidence of loose association or flight of ideas Thought Content: Patient denied auditory or visual hallucinations and continues to express grandiose ideation however today did not spontaneously discuss any of her prior comments regarding the [employer], the government and being poisoned. Patient states that she slept well last night and her appetite is good. She reports side effects of the medication being a decrease in her intelligence, her blood pressures being affected and feeling overmedicated. Suicidal/Homicidal Ideation: Patient denied any suicidal or homicidal ideation at this time Sensorium/Cognition: Patient is alert and oriented to person, place, time and her recent and remote memory grossly intact Mood/Affect: Patient's mood remains slightly irritable and her affect is appropriate to her mood Insight/Judgment: Patient's insight and judgment are fair, patient continues to question medication Assessment: Patient presents and questions her medication being increased to 15 mg, she continues to express grandiose ideation however did not spontaneously discuss any paranoid delusions that she had yesterday regarding the [employer] the government being poisoned. Patient states that her blood pressure and intelligence are being affected by the medication. Patient slept 4 hours last night as documented by staff. She has been attending groups and activities. Plan: Patient will continue on Abilify 15 mg to stabilize her mood and target her psychotic symptoms. Patient continues to require hospitalization.
[2017-11-15] MEDS: LEVOTHYROXINE 50 MCG TAB PO SCH ×2 (06:09→08:42)
[2017-11-15] MEDS: NICOTINE 21MG/24HR PATCH TRANSDERM SCH (08:41)
[2017-11-15] MEDS: AMOXICILLIN 500 MG CAP PO SCH (08:42)
[2017-11-15] MEDS: LISINOPRIL 10 MG TAB PO SCH (08:42)
[2017-11-15] MEDS: ARIPiprazole 15 MG TAB PO SCH (08:42)
--- NOTE | 2017-11-15 11:42 | P.PN ---
Progress Note - Text Progress Note Date: 11/15/17 Interval History: Patient is a 57-year-old female who was seen this morning, she states that she slept well last night and is eating well. She stated that she's been attending groups and loves group therapy. She states that her therapist at [facility] is not helping her because the therapist skills are no match for the patient's level of intelligence and education. She continues to talk about a court date in December this time to dismiss her guardian. She states that its fraud that she is on Medicaid because she has some much money from her inheritance. Patient continues to state that her blood pressure is out of line due to her medications. Mental Status: Appearance/Attitude: Patient is dressed in a hospital gown, her hair was less disheveled today, she makes eye contact and was wearing makeup and was cooperative. Behavior: Patient does not display any psychomotor agitation or retardation Speech/Language: Patient's speech was spontaneous and normal volume and rhythm and she was coherent Thought Process: Patient was goal-directed there is no evidence of loose association or flight of ideas Thought Content: Patient denied any auditory or visual hallucinations, continues to express grandiose ideation however she did not spontaneously discuss her prior ideation regarding the [place], the government. Patient reported that she is sleeping and eating well and states that she is having blood pressure issues due to her medication. Suicidal/Homicidal Ideation: Patient denied any current suicidal or homicidal ideation Sensorium/Cognition: Patient is alert and oriented to person, place, and time and her recent and remote memory are grossly intact Mood/Affect: Patient's mood is less guarded and her affect remains slightly blunted Insight/Judgment: Patient's insight and judgment are fair Assessment: Patient continues to express grandiose ideation, however slept for 7 hours last night and is no longer spontaneously discussing the delusions regarding the [place] and the government. Patient continues to discuss a court date in December at times to dismiss her guardian and other times and has to do with her inheritance from her mother's estate. Patient continues to complain of blood pressure issues from the medication. However patient's blood pressure is stable. Patient's speech is less pressured, she has been attending groups and activities. Plan: Patient will continue on Abilify 15 mg to target her mood and psychotic symptoms. Patient continues to require hospitalization. Patient continues on antibiotic treatment, is on blood pressure medication.
[2017-11-16] MEDS: AMOXICILLIN 500 MG CAP PO SCH (09:01)
[2017-11-16] MEDS: ARIPiprazole 15 MG TAB PO SCH (09:01)
[2017-11-16] MEDS: LISINOPRIL 10 MG TAB PO SCH (09:01)
[2017-11-16] MEDS: NICOTINE 21MG/24HR PATCH TRANSDERM SCH (09:01)
[2017-11-16] MEDS: LEVOTHYROXINE 50 MCG TAB PO SCH (09:02)
--- NOTE | 2017-11-16 10:59 | P.PN ---
Progress Note - Text Interval history: The patient is found in the hallway she follows me to an interview room. She reports that she is doing well. She states that she slept to the night staff recorded 6 hours. Appetite stable. She is aware that she is prescribed Abilify and reports compliance with the medication. She has no questions or concerns regarding Abilify. When asked why she was admitted the patient states it causes her too much pain to discuss it. She reports that she is petitioning to have her guardian removed and feels that she should be able to accomplish this with "all of my degrees". Mental status exam: The patient is an obese female, she is dressed in her own clothing. Eye contact is appropriate. Speech is fluent and spontaneous nonpressured. She demonstrates no loose associations or flight of ideas. She can be infrequently tangential. She seems to have ongoing grandiose delusional thought content. She reports feeling safe in the hospital. She denies having any suicidal or homicidal thoughts. She demonstrates no verbal or physical aggressiveness, she demonstrates no abnormal involuntary movements. She maintains a limited affect. Plan: The patient will continue on her current psychotropic medication. We will monitor for safety and encourage her participation in the milieu. Vital signs reviewed.
[2017-11-17] MEDS: LISINOPRIL 10 MG TAB PO SCH (08:33)
[2017-11-17] MEDS: AMOXICILLIN 500 MG CAP PO SCH (08:33)
[2017-11-17] MEDS: NICOTINE 21MG/24HR PATCH TRANSDERM SCH (08:33)
[2017-11-17] MEDS: ARIPiprazole 15 MG TAB PO SCH (08:33)
[2017-11-17] MEDS: LEVOTHYROXINE 50 MCG TAB PO SCH (08:34)
--- NOTE | 2017-11-17 11:13 | P.PN ---
Progress Note - Text Interval history: The patient is found in the hallway she follows me to an interview room. She states that she feels she is stabilized and would like to be discharged. She plans on having her guardian removed at the court hearing scheduled for early next month. He states that her education level puts her in a different social class in many of the people here are "beneath me". She has no questions regarding her psychotropic medication. She feels the Abilify is helping. Mental status exam: The patient is an obese female appearing her stated age. She is dressed in hospital gowns. Hygiene grooming adequate. Speech is fluent spontaneous nonpressured. She demonstrates some tangential thinking no loose associations or flight of ideas. She reports no suicidal or homicidal ideation. Insight and judgment limited. She is endorsing no hallucinations. To have grandiose delusional thoughts. She conveys feelings of persecution at times. She demonstrates no verbal or physical aggressiveness. She demonstrates no abnormal involuntary movements. Plan: The patient will continue on her current psychotropic medication. We will monitor her for safety and encourage her participation in the milieu. Vital signs reviewed.
[2017-11-18] MEDS: ARIPiprazole 15 MG TAB PO SCH (08:39)
[2017-11-18] MEDS: NICOTINE 21MG/24HR PATCH TRANSDERM SCH (08:39)
[2017-11-18] MEDS: LEVOTHYROXINE 50 MCG TAB PO SCH (08:40)
[2017-11-18] MEDS: LISINOPRIL 10 MG TAB PO SCH (08:40)
--- NOTE | 2017-11-18 12:01 | P.PN ---
Progress Note - Text Progress Note Date: 11/18/17 Interval History: Patient is a 57-year-old female who was seen today and she reports that she has been sleeping well and reported no side effects today from the Abilify. Patient states that she is planning to dismiss her guardian because they offered to put the money in a trust and she doesn't feel that she needs that because she has an [employer] degree. Patient stated that she could manage her own money and does not need a guardian. When patient was asked about the thoughts that she had about the [place] before she stated that those seem far away, but still may be true. Patient had no other concerns at this time. Mental Status: Appearance/Attitude: Patient was casually dressed, made good eye contact and was cooperative. Behavior: Patient did not exhibit any psychomotor agitation or retardation. Speech/Language: Patient's speech was spontaneous of normal volume and rhythm and she was coherent Thought Process: Patient was goal-directed there is no evidence of loose association or flight of ideas Thought Content: Patient denied any auditory or visual hallucinations, still presents with grandiose ideation but did not spontaneously discuss any of her delusional ideation regarding the [place], the government. She reports that she is sleeping and eating well. She continues to discuss the fact that she is able to manage her own money, because she has an [employer] degree and is better educated than her guardian. Suicidal/Homicidal Ideation: Patient denied any current suicidal or homicidal ideation Sensorium/Cognition: Patient is alert and oriented to person, place, and time and her recent and remote memory are grossly intact Mood/Affect: Patient's mood is less guarded, affect remains slightly blunted Insight/Judgment: Patient's insight and judgment are impaired Assessment: Patient did not spontaneously complain of any side effects from the medication, did not spontaneously discuss the [place] but continued to verbalize grandiose thoughts that she can manage her own money, and has an [employer] degree and does not require guardian nor the money to be placed in a trust. Patient is not willing to consider long-acting injectable Abilify. Patient has been attending groups and activities. Plan: Patient will continue on Abilify 15 mg, patient continues to show improvement, however continues to have grandiose thoughts regarding her ability to manage her money and wanting to dismiss her guardian. Patient and I discussed possible discharge this Saturday patient will be returning back to her own apartment.
[2017-11-19] MEDS: NICOTINE 21MG/24HR PATCH TRANSDERM SCH (09:02)
[2017-11-19] MEDS: LEVOTHYROXINE 50 MCG TAB PO SCH (09:02)
[2017-11-19] MEDS: LISINOPRIL 10 MG TAB PO SCH (09:02)
[2017-11-19] MEDS: ARIPiprazole 15 MG TAB PO SCH (09:02)
[2017-11-19 09:05] VITALS: RESP 20
--- NOTE | 2017-11-19 11:29 | P.PN ---
Progress Note - Text Progress Note Date: 11/19/17 Interval History: Patient is a 57-year-old female who was seen today and she reports that she is no longer bothered by her thoughts regarding the [place]. Patient states that she's been attending groups, sleeping well and eating well. She reports no side effects from the Abilify. Patient states that she still wants to contest having a guardian in December at the hearing that scheduled that she doesn't like her living situation and she feels that she can control her money herself. Mental Status: Appearance/Attitude: Patient is casually dressed, makes good eye contact and was cooperative. Behavior: Patient did not display any psychomotor agitation or retardation. Speech/Language: Patient's speech was spontaneous of normal volume and rhythm and she was coherent Thought Process: Patient was goal-directed there is no evidence of loose association or flight of ideas the patient denied racing thoughts. Thought Content: Patient denied any auditory or visual hallucinations and did not spontaneously verbalize any grandiose ideation or delusional ideation. When asked about her thoughts regarding the [place] she states that those thoughts were no longer of concern to her. Patient states that she is eating and sleeping well. She reported no side effects from the medication. Suicidal/Homicidal Ideation: Patient denied any current suicidal or homicidal ideation Sensorium/Cognition: Patient is alert and oriented to person, place, and time and her recent and remote memory are grossly intact Mood/Affect: Patient's mood is euthymic and her affect is appropriate Insight/Judgment: Patient's insight and judgment are fair Assessment: Patient has been attending groups and activities, she slept for 7 hours last night no longer exhibiting pressured speech and denies any racing thoughts. Patient did not spontaneously today verbalize any grandiose ideation or delusional ideation regarding the government or the [place]. Patient continues to feel that she does not require a guardian and states that she will have this dismissed when she goes to a hearing in December. Patient states that she likes the house that she is living in but is concerned that when roommates arrive it will be different. Patient reported no side effects from the medication and again declined using Abilify long-acting injectable medication. Plan: Patient continues on Abilify 15 mg daily, patient's mood is stabilizing and she is no longer verbalizing any delusional ideation was a patient and I discussed discharge tomorrow and she was agreeable with this plan.
[2017-11-20] MEDS: ARIPiprazole 15 MG TAB PO SCH (08:36)
[2017-11-20] MEDS: LISINOPRIL 10 MG TAB PO SCH (08:36)
[2017-11-20] MEDS: LEVOTHYROXINE 50 MCG TAB PO SCH (08:36)
[2017-11-20] MEDS: NICOTINE 21MG/24HR PATCH TRANSDERM SCH (08:37)
[2017-11-20 08:52] VITALS: BP 149/82; PULSE 97
--- NOTE | 2017-11-20 08:54 | P.DS ---
Providers Date of admission: 11/10/17 16:38 Expected date of discharge: 11/20/17 Attending physician: Viola Salvador MD Consults: 11/10/17 17:17 Consult Physician Routine Consulting Provider: Ric Berkowitz Consult Reason/Comments: H & P and medical care Do you want consulting provider notified?: Yes Primary care physician: Ric Berkowitz Hospital Course: Discharge Diagnosis: Bipolar type I disorder, current episode manic with psychotic features Reason for Admission: Patient is a 57-year-old female who came to the emergency room with paranoid ideation, suicidal ideation. Patient states that the [employer] and government are trying to kill her, they're directing noises and cars at her and using electronic's and the TV for surveillance. She states that they're sending her messages and that this is all over a family inheritance. She states that they want to keep her from the money after her mother's in March 2017. 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 She states that the police are also been on it and that the [employer] team was putting drugs in her house. Patient states that she has multiple degrees, that the [place] and police were also putting drugs to the windows because everybody is after her inheritance. 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 Patient reports that she was having suicidal thoughts but had no plan and states that she's feeling depressed. She states that she is sleeping at night and does a fine and but that all of the above bothers her during the day. Patient states that her appetite is fair because while she was at [facility] she thought they were using her throat. She then discussed that she feels that she needs to lose weight. Patient had been maintained on Risperdal 2 mg at bedtime and was last seen at [facility] in September 2017. Patient states that she recently moved into her own room 3-4 days prior to admission after having been at [facility]. Patient states that she was living with her mother prior to her mother's in March patient continued to go on about the government the [place] being after her to is unable to be redirected to discuss any other issues. Patient felt that she needed to be on an antidepressant and discontinue the Risperdal. Patient was not able to endorse any symptoms of ryanne, no complaints of anxiety. Mental status on Admission: Appearance/Attitude: Patient is dressed in a hospital gown, hair is dirty, she makes intermittent eye contact Behavior: Patient did not display any psychomotor agitation or retardation Speech/Language: Patient's speech was spontaneous, normal volume and rhythm and she was coherent Thought Process: Patient is fixated on the complaints that the [place], government police are all out to get her and needed redirection to discuss any other issues. Thought Content: Patient states that she is hearing voices from the electronics , denied visual hallucinations and stated that the [facility] is after her money from her inheritance, that they have been sending drugs through the windows, directing cars and noises at her. She feels the government is trying to kill her as well as sending her messages over the TV. 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 Patient felt that the SWAT team put drugs in her house. Patient states that she's been eating and sleeping fairly well. Suicidal/Homicidal Ideation: Patient states that she has suicidal thoughts but no plan to act on them. Patient denies any current homicidal ideation Sensorium/Cognition: Patient is alert and oriented to person, place, situation and her recent and remote memory are grossly intact Mood/Affect: Patient's mood is guarded and her affect is blunted Insight/Judgment: Patient's insight and judgment are fair Hospital Course: Patient was admitted on a voluntary basis, her guardian agreed with voluntary admission and she was placed on routine observation in group and activity therapy were ordered. Patient had routine laboratory studies as well as a medical consultation. Patient was continued on her lisinopril and Synthroid for her hypertension and hypothyroidism. Patient and I discussed her medications and I started her on Abilify 10 mg in the morning to target her psychotic symptoms and stabilize her mood, no antidepressants were begun. As the patient progressed she was compliant with medication and was expressing more grandiose ideation, her speech remains slightly pressured and she persisted with her delusions regarding the [place]. Patient's presentation appeared to be more of a bipolar disorder, manic episode with psychotic features. Abilify was continued as the mood stabilizer to target her manic symptoms and psychotic features. Abilify was increased to a total dose of 15 mg in the morning. Patient slowly showed improvement with her speech becoming less pressured, she spontaneously was not discussing the delusions regarding the [place] and stated that those were slowly becoming something from the past. Patient eventually was not reporting spontaneously any grandiose delusions regarding her intelligence, education level with the fact that she could treat herself without medication. Patient reported no side effects from the medication and her sleep improved to 7-8 hours a night. Patient was attending groups and activities and participating appropriately. Patient continued to voice her concerns regarding the fact that she had a guardian and stated that she had a hearing on December 16 to dismiss the guardian. Patient states she was comfortable in the room and board where she had been living and was eager to return there. Patient felt the medication was working appropriately, she declined Abilify long-acting injectable. Patient was stable and considered appropriate for discharge. Allergies meperidine HCl [From Demerol] Allergy (Verified 11/10/17 16:09) Unknown PER OASIS olanzapine [From Zyprexa] Allergy (Verified 11/10/17 16:09) Unknown paliperidone [From Invega] Allergy (Verified 11/10/17 16:09) Unknown Laboratory Last Values WBC 6.5 k/uL (3.8-10.6) 11/11/17 08:12 RBC 4.59 m/uL (3.80-5.40) 11/11/17 08:12 Hgb 13.5 gm/dL (11.4-16.0) 11/11/17 08:12 Hct 42.5 % (34.0-46.0) 11/11/17 08:12 MCV 92.6 fL (80.0-100.0) 11/11/17 08:12 MCH 29.3 pg (25.0-35.0) 11/11/17 08:12 MCHC 31.7 g/dL (31.0-37.0) 11/11/17 08:12 RDW 13.5 % (11.5-15.5) 11/11/17 08:12 Plt Count 256 k/uL (150-450) 11/11/17 08:12 Neutrophils % 71 % 11/11/17 08:12 Lymphocytes % 14 % 11/11/17 08:12 Monocytes % 6 % 11/11/17 08:12 Eosinophils % 7 % 11/11/17 08:12 Basophils % 1 % 11/11/17 08:12 Neutrophils # 4.6 k/uL (1.3-7.7) 11/11/17 08:12 Lymphocytes # 0.9 k/uL (1.0-4.8) L 11/11/17 08:12 Monocytes # 0.4 k/uL (0-1.0) 11/11/17 08:12 Eosinophils # 0.4 k/uL (0-0.7) 11/11/17 08:12 Basophils # 0.0 k/uL (0-0.2) 11/11/17 08:12 Sodium 138 mmol/L (137-145) 11/11/17 08:12 Potassium 4.7 mmol/L (3.5-5.1) 11/11/17 08:12 Chloride 105 mmol/L (98-107) 11/11/17 08:12 Carbon Dioxide 25 mmol/L (22-30) 11/11/17 08:12 Anion Gap 8 mmol/L 11/11/17 08:12 BUN 15 mg/dL (7-17) 11/11/17 08:12 Creatinine 0.60 mg/dL (0.52-1.04) 11/11/17 08:12 Est GFR (CKD-EPI)AfAm >90 (>60 ml/min/1.73 sqM) 11/11/17 08:12 Est GFR (CKD-EPI)NonAf >90 (>60 ml/min/1.73 sqM) 11/11/17 08:12 Glucose 122 mg/dL (74-99) H 11/11/17 08:[address] Glu mg/dL 134 11/11/17 08:12 Hemoglobin A1c 6.3 % (4.0-6.0) H 11/11/17 08:12 Calcium 9.1 mg/dL (8.4-10.2) 11/11/17 08:12 Total Bilirubin 0.4 mg/dL (0.2-1.3) 11/11/17 08:12 Conjugated Bilirubin 0.0 mg/dL (0.0-0.3) 11/11/17 08:12 Unconjugated Bilirubin 0.2 mg/dL (0.0-1.1) 11/11/17 08:12 Delta Bilirubin 0.2 mg/dL (0.0-0.2) 11/11/17 08:12 AST 20 U/L (14-36) 11/11/17 08:12 ALT 38 U/L (9-52) 11/11/17 08:12 Alkaline Phosphatase 95 U/L (38-126) 11/11/17 08:12 Total Protein 6.1 g/dL (6.3-8.2) L 11/11/17 08:12 Albumin 3.8 g/dL (3.5-5.0) 11/11/17 08:12 Triglycerides 170 mg/dL (<150) H 11/11/17 08:12 Cholesterol 169 mg/dL (<200) 11/11/17 08:12 LDL Cholesterol, Calc 95 mg/dL (0-99) 11/11/17 08:12 HDL Cholesterol 40 mg/dL (40-60) 11/11/17 08:12 TSH 2.450 mIU/L (0.465-4.680) 11/11/17 08:12 Urine Opiates Screen Not Detected (NotDetected) 11/10/17 14:47 Ur Oxycodone Screen Not Detected (NotDetected) 11/10/17 14:47 Urine Methadone Screen Not Detected (NotDetected) 11/10/17 14:47 Ur Propoxyphene Screen Not Detected (NotDetected) 11/10/17 14:47 Ur Barbiturates Screen Not Detected (NotDetected) 11/10/17 14:47 U Tricyclic Antidepress Not Detected (NotDetected) 11/10/17 14:47 Ur Phencyclidine Scrn Not Detected (NotDetected) 11/10/17 14:47 Ur Amphetamines Screen Not Detected (NotDetected) 11/10/17 14:47 U Methamphetamines Scrn Not Detected (NotDetected) 11/10/17 14:47 U Benzodiazepines Scrn Not Detected (NotDetected) 11/10/17 14:47 Urine Cocaine Screen Not Detected (NotDetected) 11/10/17 14:47 U Marijuana (THC) Screen Not Detected (NotDetected) 11/10/17 14:47 Discharge Mental Status: Appearance/Attitude: Patient was casually dressed, made good eye contact and was cooperative. Behavior: Patient did not display any psychomotor agitation or retardation. Speech/Language: Patient's speech was spontaneous of normal volume and rhythm and she was coherent. Thought Process: Patient was goal-directed there is no evidence of loose association or flight of ideas and she denied having any racing thoughts. Thought Content: Patient denied any auditory or visual hallucinations and no delusions or paranoid ideation were elicited and the patient did not spontaneously discuss them. Patient stated that the thoughts regarding the [facility] and the government or in the past. Patient had been sleeping and eating well. Patient states that she had no side effects from the medication and none were observed. Patient reported she was eager to restart [employer] program to assist with weight loss. Suicidal/Homicidal Ideation: Patient denied any current suicidal or homicidal ideation Sensorium/Cognition: Patient is alert and oriented to person, place, and time and her recent and remote memory are grossly intact Mood/Affect: Patient's mood is euthymic and her affect is appropriate Insight/Judgment: Patient's insight and judgment are fair Risk Assessment: Patient's risk for readmission is low should she be compliant with medication and follow-up appointments Discharge Plan: Patient will continue on Abilify 15 mg in the morning and she will be given a prescription for this. Patient states she has sufficient lisinopril and Synthroid at home and declines a prescription for a nicotine patch. Patient will follow-up at [facility] and she was encouraged to be compliant with medications and follow-up appointments and to avoid all alcohol and drugs. Patient will also follow-up with her primary care physician regarding her hypertension and hypothyroidism. Patient Condition at Discharge: Stable Plan - Discharge Summary Discharge Rx Participant: No New Discharge Prescriptions: New ARIPiprazole [Abilify] 15 mg PO DAILY #14 tab Continue Levothyroxine Sodium [Levo-T] 50 mcg PO DAILY #14 tablet Lisinopril [Zestril] 10 mg PO DAILY Discontinued risperiDONE ODT [RisperDAL M-TAB] 2 mg PO HS Amoxicillin 500 mg PO DAILY Discharge Medication List Levothyroxine Sodium [Levo-T] 50 mcg PO DAILY #14 tablet 06/10/17 [Rx] Lisinopril [Zestril] 10 mg PO DAILY 11/10/17 [History] ARIPiprazole [Abilify] 15 mg PO DAILY #14 tab 11/20/17 [Rx] Follow up Appointment(s)/Referral(s): [facility] [Outside] - 11/26/17 9:30 am (Dr Meléndez) Ric Berkowitz DO [Primary Care Provider] - 1-2 days Patient Instructions/Handouts: Bipolar Disorder (DC), Suicide Prevention for Adults (DC) Activity/Diet/Wound Care/Special Instructions: Activity and diet as tolerated. Avoid the use of street drugs and alcohol. Remove all firearms from the home. Take all medications as prescribed. Follow up with your Primary Care Physician in one to two days. When you are in need of refills on your medications please contact your medical provider and/or your outpatient psychiatrist to have this done. Please go to the scheduled outpatient appointment for aftercare. If symptoms return or become worse call the crisis line and/ or go the nearest emergency room for an evaluation. l Discharge Disposition: HOME SELF-CARE
== END 2017-11-20 13:05 | disposition home or self-care (01) | DRG 885 ==
LOC: EEVIPCON 14:11 → EC 14:11 → 3MHU 16:38
PROVIDERS: ADMIT Psychiatry & Neurology Psychiatry; ATTEND Psychiatry & Neurology Psychiatry
DX: F31.2 Bipolar disorder, current episode manic severe with psychotic features (principal); R45.851 Suicidal ideations; Z68.42 Body mass index [BMI] 45.0-49.9, adult; E03.9 Hypothyroidism, unspecified; F17.200 Nicotine dependence, unspecified, uncomplicated; I10 Essential (primary) hypertension; F41.9 Anxiety disorder, unspecified; E66.9 Obesity, unspecified; Z79.899 Other long term (current) drug therapy; Z79.890 Hormone replacement therapy; Z88.5 Allergy status to narcotic agent; Z88.8 Allergy status to other drugs, medicaments and biological substances
CPT/HCPCS: 80053; 80061; 80306; 82075; 82248; 83036; 84443; 85025; 99285

== ENCOUNTER 2018-03-03 14:25 | Inpatient (IN) | payer MEDICARE, MEDICAID ==
--- NOTE | 2018-03-03 14:51 | ED ---
Psych HPI - General Chief Complaint: Psychiatric Symptoms Stated Complaint: Mental Health Time Seen by Provider: 03/03/18 14:44 Source: patient, RN notes reviewed, old records reviewed Mode of arrival: ambulatory - History of Present Illness Initial Comments: This is a 57-year-old female the ER for evaluation of suicidal deviation, patient states feels psychotic, patient is delusional feels like she is read by both to KURTIS and FBKarli MD Complaint: suicidal ideation, feels depressed -: unknown Associated Psychiatric Symptoms: depression, suicidal ideation, homicidal ideation, delusions History of same: Yes Quality: intermittent Improves With: none Worsens With: none Context: not taking psychiatric medications Associated Symptoms: denies other symptoms Treatments Prior to Arrival: none If Self Harm: has plan - Related Data Home Medications Medication Instructions Recorded Confirmed Lisinopril [Zestril] 10 mg PO DAILY 11/10/17 03/03/18 Previous Rx's Medication Instructions Recorded Levothyroxine Sodium [Levo-T] 50 mcg PO DAILY #14 tablet 06/10/17 ARIPiprazole [Abilify] 15 mg PO DAILY #14 tab 11/20/17 Allergies Allergy/AdvReac Type Severity Reaction Status Date / Time meperidine HCl [From Demerol] Allergy Unknown Verified 03/03/18 19:10 olanzapine [From Zyprexa] Allergy Unknown Verified 03/03/18 19:10 paliperidone [From Invega] Allergy Unknown Verified 03/03/18 19:10 Review of Systems ROS Statement: Those systems with pertinent positive or pertinent negative responses have been documented in the HPI. ROS Other: All systems not noted in ROS Statement are negative. Past Medical History Past Medical History: Hypertension, Thyroid Disorder History of Any Multi-Drug Resistant Organisms: None Reported Additional Past Surgical History / Comment(s): sinus surgery Past Anesthesia/Blood Transfusion Reactions: No Reported Reaction Past Psychological History: Anxiety, Schizoaffective Disorder, Schizophrenia Smoking Status: Current every day smoker Past Alcohol Use History: Occasional Past Drug Use History: None Reported General Exam Limitations: no limitations General appearance: alert, in no apparent distress Head exam: Present: atraumatic, normocephalic, normal inspection Eye exam: Present: normal appearance, PERRL, EOMI. Absent: scleral icterus, conjunctival injection, periorbital swelling ENT exam: Present: normal exam, mucous membranes moist Neck exam: Present: normal inspection. Absent: tenderness, meningismus, lymphadenopathy Respiratory exam: Present: normal lung sounds bilaterally. Absent: respiratory distress, wheezes, rales, rhonchi, stridor Cardiovascular Exam: Present: regular rate, normal rhythm, normal heart sounds. Absent: systolic murmur, diastolic murmur, rubs, gallop, clicks GI/Abdominal exam: Present: soft, normal bowel sounds. Absent: distended, tenderness, guarding, rebound, rigid Extremities exam: Present: normal inspection, full ROM, normal capillary refill. Absent: tenderness, pedal edema, joint swelling, calf tenderness Back exam: Present: normal inspection Neurological exam: Present: alert, oriented X3, CN II-XII intact Psychiatric exam: Present: normal affect, normal mood Skin exam: Present: warm, dry, intact, normal color. Absent: rash Course Vital Signs 03/03/18 03/03/18 03/03/18 14:28 17:34 18:46 Temperature 98.5 F Pulse Rate 121 H 99 75 Respiratory 20 18 14 Rate Blood Pressure 161/85 134/77 133/82 O2 Sat by Pulse 94 L 94 L 97 Oximetry - Reevaluation(s) Reevaluation #1: 03/03/18 14:51 Patient is medically clear for psychiatric evaluation Medical Decision Making - Medical Decision Making 57 female the ER for evaluation positive psychiatric illness. Patient is to be in admitted for psychiatric evaluation and treatment - Lab Data Lab Results 03/03/18 03/03/18 03/03/18 Range/Units 14:44 14:44 14:44 Urine Color Yellow Urine Appearance Cloudy H (Clear) Urine pH 6.0 (5.0-8.0) Ur Specific [place] 1.016 (1.001-1.035) Urine Protein 1+ H (Negative) Urine Glucose (UA) 3+ H (Negative) Urine Ketones Negative (Negative) Urine Blood Small H (Negative) Urine Nitrite Negative (Negative) Urine Bilirubin Negative (Negative) Urine Urobilinogen 2.0 (<2.0) mg/dL Ur Leukocyte Esterase Large H (Negative) Urine RBC 5 (0-5) /hpf Urine WBC 73 H (0-5) /hpf Ur Squamous Epith Cells 3 (0-4) /hpf Amorphous Sediment Rare H (None) /hpf Urine Bacteria Few H (None) /hpf Urine Mucus Rare H (None) /hpf Urine HCG, Qual Not Detected (Not Detectd) Urine Opiates Screen Not Detected (NotDetected) Ur Oxycodone Screen Not Detected (NotDetected) Urine Methadone Screen Not Detected (NotDetected) Ur Propoxyphene Screen Not Detected (NotDetected) Ur Barbiturates Screen Not Detected (NotDetected) U Tricyclic Antidepress Not Detected (NotDetected) Ur Phencyclidine Scrn Not Detected (NotDetected) Ur Amphetamines Screen Not Detected (NotDetected) U Methamphetamines Scrn Not Detected (NotDetected) U Benzodiazepines Scrn Not Detected (NotDetected) Urine Cocaine Screen Not Detected (NotDetected) U Marijuana (THC) Screen Not Detected (NotDetected) Disposition Clinical Impression: Psychosis, Suicidal ideation Disposition: TRANSFER TO PSYCH HOSP/UNIT Condition: Fair Is patient prescribed a controlled substance at d/c from ED?: No
[2018-03-03 15:57] LABS: Amphetamine Screen,Urine Not Detected (NotDetected); Barbiturate Screen,Urine Not Detected (NotDetected); Benzodiazepines Screen,Urine Not Detected (NotDetected); Cocaine Screen,Urine Not Detected (NotDetected); Methadone Screen, Urine Not Detected (NotDetected); Opiate Screen,Urine Not Detected (NotDetected); Oxycodone Screen, Urine Not Detected (NotDetected); Phencyclidine Screen,Urine Not Detected (NotDetected); Tricyclic Antidepressant,Urine Not Detected (NotDetected); Urn Cannabinoid Scrn Not Detected (NotDetected)
[2018-03-03] MEDS ORDERED: ACETAMINOPHEN TAB 325 MG TAB PO PRN (18:42)
[2018-03-03] MEDS ORDERED: MAG HYDROX/AL HYDROX/SIMETH 30 ML CUP PO PRN (18:42)
[2018-03-03] MEDS ORDERED: MAGNESIUM HYDROXIDE 2,400 MG/10 ML CUP PO PRN (18:42)
[2018-03-03 19:07] LABS: Amorphous Sediment,Urine Rare /hpf; Appearance,Urine Cloudy (Clear); Bacteria,Urine Few /hpf; Bilirubin,Urine Negative (Negative); Blood,Urine Small (Negative); Color,Urine Yellow; Glucose,Urine (UA) 3+ (Negative); Ketones,Urine Negative (Negative); Leukocyte Esterase,Urine Large (Negative); Mucus,Urine Rare /hpf; Nitrite,Urine Negative (Negative); Protein,Urine 1+ (Negative); RBC,Urine 5 /hpf (0-5); Specific Gravity,Urine 1.016 (1.001-1.035); Squamous Epithelial Cell,Urine 3 /hpf (0-4); WBC,Urine 73 /hpf (0-5)
[2018-03-04] MEDS: LEVOTHYROXINE 50 MCG TAB PO SCH (06:06)
[2018-03-04] MEDS: LISINOPRIL 10 MG TAB PO SCH (08:46)
[2018-03-04] MEDS ORDERED: ARIPiprazole 15 MG TAB PO SCH (09:00)
--- NOTE | 2018-03-04 11:10 | P.HP ---
Psychiatric H&P - . H&P Date: 03/04/18 History & Physical: Allergies Allergy/AdvReac Type Severity Reaction Status Date / Time meperidine HCl [From Demerol] Allergy Unknown Verified 03/03/18 19:10 olanzapine [From Zyprexa] Allergy Unknown Verified 03/03/18 19:10 paliperidone [From Invega] Allergy Unknown Verified 03/03/18 19:10 Vital Signs Temp 98.4 F 03/04/18 06:34 Pulse 89 03/04/18 06:34 Resp 18 03/04/18 06:34 BP 170/81 03/04/18 06:34 Pulse Ox 97 03/03/18 18:46 Intake & Output 03/03/18 03/04/18 03/04/18 18:59 06:59 18:59 Weight 108.771 kg Laboratory Last Values Urine Color Yellow 03/03/18 14:44 Urine Appearance Cloudy (Clear) H 03/03/18 14:44 Urine pH 6.0 (5.0-8.0) 03/03/18 14:44 Ur Specific [place] 1.016 (1.001-1.035) 03/03/18 14:44 Urine Protein 1+ (Negative) H 03/03/18 14:44 Urine Glucose (UA) 3+ (Negative) H 03/03/18 14:44 Urine Ketones Negative (Negative) 03/03/18 14:44 Urine Blood Small (Negative) H 03/03/18 14:44 Urine Nitrite Negative (Negative) 03/03/18 14:44 Urine Bilirubin Negative (Negative) 03/03/18 14:44 Urine Urobilinogen 2.0 mg/dL (<2.0) 03/03/18 14:44 Ur Leukocyte Esterase Large (Negative) H 03/03/18 14:44 Urine RBC 5 /hpf (0-5) 03/03/18 14:44 Urine WBC 73 /hpf (0-5) H 03/03/18 14:44 Ur Squamous Epith Cells 3 /hpf (0-4) 03/03/18 14:44 Amorphous Sediment Rare /hpf (None) H 03/03/18 14:44 Urine Bacteria Few /hpf (None) H 03/03/18 14:44 Urine Mucus Rare /hpf (None) H 03/03/18 14:44 Urine HCG, Qual Not Detected (Not Detectd) 03/03/18 14:44 Urine Opiates Screen Not Detected (NotDetected) 03/03/18 14:44 Ur Oxycodone Screen Not Detected (NotDetected) 03/03/18 14:44 Urine Methadone Screen Not Detected (NotDetected) 03/03/18 14:44 Ur Propoxyphene Screen Not Detected (NotDetected) 03/03/18 14:44 Ur Barbiturates Screen Not Detected (NotDetected) 03/03/18 14:44 U Tricyclic Antidepress Not Detected (NotDetected) 03/03/18 14:44 Ur Phencyclidine Scrn Not Detected (NotDetected) 03/03/18 14:44 Ur Amphetamines Screen Not Detected (NotDetected) 03/03/18 14:44 U Methamphetamines Scrn Not Detected (NotDetected) 03/03/18 14:44 U Benzodiazepines Scrn Not Detected (NotDetected) 03/03/18 14:44 Urine Cocaine Screen Not Detected (NotDetected) 03/03/18 14:44 U Marijuana (THC) Screen Not Detected (NotDetected) 03/03/18 14:44 Assessment and Plan (1) Bipolar 1 disorder with moderate ryanne Narrative/Plan: This is a 57-year-old female the ER for evaluation of suicidal deviation, patient states feels psychotic, patient is delusional feels like she is read by both to KURTIS and FBI MD Complaint: suicidal ideation, feels depressed -: unknown Associated Psychiatric Symptoms: depression, suicidal ideation, homicidal ideation, delusions History of same: Yes Quality: intermittent Improves With: none Worsens With: none Context: not taking psychiatric medications Associated Symptoms: denies other symptoms Treatments Prior to Arrival: none If Self Harm: has plan - Related Data Home Medications Medication Instructions Recorded Confirmed Lisinopril [Zestril] 10 mg PO DAILY 11/10/17 03/03/18 Previous Rx's Medication Instructions Recorded Levothyroxine Sodium [Levo-T] 50 mcg PO DAILY #14 tablet 06/10/17 ARIPiprazole [Abilify] 15 mg PO DAILY #14 tab 11/20/17 Allergies Allergy/AdvReac Type Severity Reaction Status Date / Time meperidine HCl [From Demerol] Allergy Unknown Verified 11/26/18 19:10 olanzapine [From Zyprexa] Allergy Unknown Verified 03/03/18 19:10 paliperidone [From Invega] Allergy Unknown Verified 03/03/18 19:10 Past Medical History Past Medical History: Hypertension, Thyroid Disorder History of Any Multi-Drug Resistant Organisms: None Reported Additional Past Surgical History / Comment(s): sinus surgery Past Anesthesia/Blood Transfusion Reactions: No Reported Reaction Past Psychological History: Anxiety, Schizoaffective Disorder, Schizophrenia Smoking Status: Current every day smoker Past Alcohol Use History: Occasional Past Drug Use History: None Reported PAST PSYCHIATRIC HISTORY: She reports that this would be her third inpatient admission. She reports being here in numerous years ago and then later going to [place] for 6 months. She was previously on Risperdal 2 mg daily and Wellbutrin dosage unknown. She was tried on Abilify in the past but it did not "change my brain waves enough to keep them out". She denies any history of suicide attempts. PMH: Possible hypothyroidism she states that she took [place] Thyroid in the past. Laboratory values reflect an elevated TSH at 7.910 with a normal free T4. ALLERGIES: Demerol MEDICATIONS: None at this time CHEMICAL DEPENDENCY HISTORY: She reports using alcohol 2-3 times a week having 3 -4 glasses of wine on an occasion. She denies using any illicit drugs. She reports she's never been placed in residential treatment for chemical dependency reasons. FAMILY PSYCHIATRIC HISTORY: Her father was known to have depression, no history of suicides in the family. FAMILY CHEMICAL DEPENDENCY HISTORY: None reported SOCIAL HISTORY: The patient is a 53-year-old female. She reports that she lives alone and receives a Social Security income of over $600 a month. She states that she lives in her own apartment. She is unemployed. She has 3 children ages 1923 and 24. She reports that she has 2 associates degrees in a master's from [employer]. Musculoskeletal Examination - Abnormal/Involuntary Movements: [none] Strength: [greater than antigravity (greater than/equal to 3/5) in all extremities] Muscle Tone: [no impairment] Gait: [grossly normal Station: [grossly normal] Mental Status Examination - General Appearance: [ disheveled, bizarre, appears older than stated age Speech/Language: [spontaneous, rapid, rambled, monotone, expressive loud] Attitude/Behavior: [cooperative, guarded, irritable] Mood: [depressed, euphoric, anxious, elated, irritable, angry, fearful, hopelessness, other] Affect: [ lively, flat, labile] Orientation: [time, person, place situation] Thought Content: [ delusions, obsessions, phobias, other] Risk Factors: [she is suicidal (ideations, plan), not Homicidal (ideations, plan)] Perception: [wnl] Thought Processes: [concrete, circumstantial, tangential] Concentration/Attention Span: [ impaired] [Per observation and interview with the patient] Recent Memory: [impaired] [0 out of 3 in 3 minutes] Remote Memory: [wnl] [past events, as related history] Intelligence: [average] [based on history, based on vocabulary, syntax, grammar , and content] Judgement: [poor] [per patient's behavior/history of present illness] Insight: [poor] [understanding severity of illness/history of present illness] Admitting Diagnosis: [bipolar affective disorder-acute psychosis] Patient Strengths - Personal Skills: [x] Achievements: [x] Housing stability: [] Able to vocalize needs: [x] Motivation, determination, readiness for change: [x] Patient Limitations: [medication, non-compliance, pathological/unsupported environment, no interests, intellectual impairment Initial Plan of Care: [admission formal voluntary; 15 minutes checks; medical, psychiatric,nursing and recreational. [facility] and milieu environment ] add risperdal 2 mg po bid; group and learn coping mechanisms Estimated Length of Stay: [5-7 days] Initial Discharge Plan: [[place], [facility], referred to therapist Prognosis: [ guarded] Justification for Inpatient Hospitalization - [Hallucinations, delusions, agitation, anxiety, depression resulting in significant loss of functioning.] [Dangerous to self, others, or property with need for controlled environment.] [Emotional or behavioral conditions and complications requiring 24 hour medical and nursing care.] [Need for special drug therapy, or other therapeutic program requiring continuous hospitalization.] [Failure of social or occupational functioning.] [Inability to meet basic life and health needs.] STRENGTHS/WEAKNESSES: Strengths housing, income, willingness to remain hospitalized voluntarily and restart medication weaknesses current psychosis and recent noncompliance with medication INTELLECTUAL FUNCTIONING: Estimated at average Current Visit: Yes Status: Acute Priority: High Code(s): F31.12 - BIPOLAR DISORD, CRNT EPISODE MANIC W/O PSYCH FEATURES, MOD SNOMED Code(s): 88123015 (2) Psychosis Current Visit: Yes Status: Acute Priority: High Code(s): F29 - UNSP PSYCHOSIS NOT DUE TO A SUBSTANCE OR KNOWN PHYSIOL COND SNOMED Code(s): 25152821
[2018-03-04 11:21] LABS: Basophils # (A) 0.1 k/uL (0-0.2); Basophils % (A) 0 %; Eosinophils # (A) 0.2 k/uL (0-0.7); Eosinophils % (A) 1 %; HCT 45.3 % (34.0-46.0); HGB 14.3 gm/dL (11.4-16.0); Lymphocytes # (A) 1.4 k/uL (1.0-4.8); Lymphocytes % (A) 12 %; MCH 30.4 pg (25.0-35.0); MCHC 31.6 g/dL (31.0-37.0); MCV 96.4 fL (80.0-100.0); Monocytes # (A) 0.7 k/uL (0-1.0); Monocytes % (A) 6 %; Neutrophils % (A) 78 %; Platelet Count 332 k/uL (150-450); RDW 14.2 % (11.5-15.5); WBC 11.6 k/uL (3.8-10.6)
[2018-03-04] MEDS ORDERED: risperiDONE 2 MG TAB PO STA (11:29)
[2018-03-04 11:42] LABS: ALT 34 U/L (9-52); AST 22 U/L (14-36); Alkaline Phosphatase 114 U/L (38-126); Anion Gap 10 mmol/L; Blood Urea Nitrogen 10 mg/dL (7-17); Calcium 9.7 mg/dL (8.4-10.2); Carbon Dioxide 27 mmol/L (22-30); Chloride 101 mmol/L (98-107); Cholesterol 192 mg/dL (<200); Glucose 106 mg/dL (74-99); HDL Cholesterol 44 mg/dL (40-60); LDL Cholesterol,Calculated 114 mg/dL (0-99); Potassium 4.7 mmol/L (3.5-5.1); Sodium 138 mmol/L (137-145); Total Bilirubin 0.8 mg/dL (0.2-1.3); Total Protein 6.8 g/dL (6.3-8.2); Triglycerides 171 mg/dL (<150)
[2018-03-04 19:45] LABS: Hemoglobin A1C 6.5 % (4.0-6.0)
[2018-03-04] MEDS: risperiDONE 2 MG TAB PO SCH (20:07)
[2018-03-05] MEDS: LEVOTHYROXINE 50 MCG TAB PO SCH (06:20)
[2018-03-05] MEDS: LISINOPRIL 10 MG TAB PO SCH (08:49)
[2018-03-05] MEDS: risperiDONE 2 MG TAB PO SCH ×2 (08:49→21:41)
--- NOTE | 2018-03-05 09:17 | P.PN ---
Subjective Progress Note Date: 03/05/18 Principal diagnosis: Bipolar affective disorder-acute psychosis I feel somewhat better. My blood pressure is elevated and I am anxious. Patient rambles and tangential. Objective - Vital Signs Vital signs: Vital Signs Temp 98.1 F 03/05/18 07:14 Pulse 111 H 03/05/18 08:59 Resp 20 03/05/18 08:59 BP 158/92 03/05/18 08:59 Pulse Ox 97 03/03/18 18:46 - Labs CBC & Chem 7: 03/04/18 10:42 03/04/18 10:42 Labs: Abnormal Lab Results - Last 24 Hours (Table) 03/04/18 03/04/18 03/04/18 Range/Units 10:42 10:42 10:42 WBC 11.6 H (3.8-10.6) k/uL Neutrophils # 9.0 H (1.3-7.7) k/uL Glucose 106 H (74-99) mg/dL Hemoglobin A1c 6.5 H (4.0-6.0) % Triglycerides 171 H (<150) mg/dL LDL Cholesterol, Calc 114 H (0-99) mg/dL Assessment and Plan (1) Bipolar 1 disorder with moderate ryanne Narrative/Plan: This is a 57-year-old female the ER for evaluation of suicidal deviation, patient states feels psychotic, patient is delusional feels like she is read by both to KURTIS and FBI MD Complaint: suicidal ideation, feels depressed -: unknown Associated Psychiatric Symptoms: depression, suicidal ideation, homicidal ideation, delusions History of same: Yes Quality: intermittent Improves With: none Worsens With: none Context: not taking psychiatric medications Associated Symptoms: denies other symptoms Treatments Prior to Arrival: none If Self Harm: has plan - Related Data Home Medications Medication Instructions Recorded Confirmed Lisinopril [Zestril] 10 mg PO DAILY 11/10/17 03/03/18 Previous Rx's Medication Instructions Recorded Levothyroxine Sodium [Levo-T] 50 mcg PO DAILY #14 tablet 06/10/17 ARIPiprazole [Abilify] 15 mg PO DAILY #14 tab 11/20/17 Allergies Allergy/AdvReac Type Severity Reaction Status Date / Time meperidine HCl [From Demerol] Allergy Unknown Verified 03/03/18 19:10 olanzapine [From Zyprexa] Allergy Unknown Verified 03/03/18 19:10 paliperidone [From Invega] Allergy Unknown Verified 03/03/18 19:10 Past Medical History Past Medical History: Hypertension, Thyroid Disorder History of Any Multi-Drug Resistant Organisms: None Reported Additional Past Surgical History / Comment(s): sinus surgery Past Anesthesia/Blood Transfusion Reactions: No Reported Reaction Past Psychological History: Anxiety, Schizoaffective Disorder, Schizophrenia Smoking Status: Current every day smoker Past Alcohol Use History: Occasional Past Drug Use History: None Reported PAST PSYCHIATRIC HISTORY: She reports that this would be her third inpatient admission. She reports being here in numerous years ago and then later going to [place] for 6 months. She was previously on Risperdal 2 mg daily and Wellbutrin dosage unknown. She was tried on Abilify in the past but it did not "change my brain waves enough to keep them out". She denies any history of suicide attempts. PMH: Possible hypothyroidism she states that she took [place] Thyroid in the past. Laboratory values reflect an elevated TSH at 7.910 with a normal free T4. ALLERGIES: Demerol MEDICATIONS: None at this time CHEMICAL DEPENDENCY HISTORY: She reports using alcohol 2-3 times a week having 3 -4 glasses of wine on an occasion. She denies using any illicit drugs. She reports she's never been placed in residential treatment for chemical dependency reasons. FAMILY PSYCHIATRIC HISTORY: Her father was known to have depression, no history of suicides in the family. FAMILY CHEMICAL DEPENDENCY HISTORY: None reported SOCIAL HISTORY: The patient is a 53-year-old female. She reports that she lives alone and receives a Social Security income of over $600 a month. She states that she lives in her own apartment. She is unemployed. She has 3 children ages 1923 and 24. She reports that she has 2 associates degrees in a master's from [employer]. Musculoskeletal Examination - Abnormal/Involuntary Movements: [none] Strength: [greater than antigravity (greater than/equal to 3/5) in all extremities] Muscle Tone: [no impairment] Gait: [grossly normal Station: [grossly normal] Mental Status Examination - General Appearance: [ disheveled, bizarre, appears older than stated age Speech/Language: [spontaneous, rapid, rambled, monotone, expressive loud] Attitude/Behavior: [cooperative, guarded, irritable] Mood: [depressed, euphoric, anxious, elated, irritable, angry, fearful, hopelessness, other] Affect: [ lively, flat, labile] Orientation: [time, person, place situation] Thought Content: [ delusions, obsessions, phobias, other] Risk Factors: [she is suicidal (ideations, plan), not Homicidal (ideations, plan)] Perception: [wnl] Thought Processes: [concrete, circumstantial, tangential] Concentration/Attention Span: [ impaired] [Per observation and interview with the patient] Recent Memory: [impaired] [0 out of 3 in 3 minutes] Remote Memory: [wnl] [past events, as related history] Intelligence: [average] [based on history, based on vocabulary, syntax, grammar , and content] Judgement: [poor] [per patient's behavior/history of present illness] Insight: [poor] [understanding severity of illness/history of present illness] Admitting Diagnosis: [bipolar affective disorder-acute psychosis] Patient Limitations: [medication, non-compliance, pathological/unsupported environment, no interests, intellectual impairment Initial Plan of Care: [admission formal voluntary; 15 minutes checks; medical, psychiatric,nursing and recreational. [facility] and milieu environment ] add risperdal 2 mg po bid; group and learn coping mechanisms; add clonidine 0.1 mg bid Estimated Length of Stay: [5 days] Initial Discharge Plan: [home, [facility], referred to therapist Prognosis: [ guarded] STRENGTHS/WEAKNESSES: Strengths housing, income, willingness to remain hospitalized voluntarily and restart medication weaknesses current psychosis and recent noncompliance with medication INTELLECTUAL FUNCTIONING: Estimated at average Current Visit: Yes Status: Acute Priority: Medium Code(s): F31.12 - BIPOLAR DISORD, CRNT EPISODE MANIC W/O PSYCH FEATURES, MOD SNOMED Code(s): 42679839 (2) Psychosis Current Visit: Yes Status: Acute Priority: Medium Code(s): F29 - UNSP PSYCHOSIS NOT DUE TO A SUBSTANCE OR KNOWN PHYSIOL COND SNOMED Code(s): 74950029 Time with Patient: Less than 30
[2018-03-05 11:13] LABS: Basophils # (A) 0.1 k/uL (0-0.2); Basophils % (A) 1 %; Eosinophils # (A) 0.2 k/uL (0-0.7); Eosinophils % (A) 2 %; HCT 41.4 % (34.0-46.0); HGB 13.8 gm/dL (11.4-16.0); Lymphocytes # (A) 1.2 k/uL (1.0-4.8); Lymphocytes % (A) 13 %; MCH 31.4 pg (25.0-35.0); MCHC 33.4 g/dL (31.0-37.0); MCV 93.9 fL (80.0-100.0); Mean Platelet Volume 7.5; Monocytes # (A) 0.6 k/uL (0-1.0); Monocytes % (A) 6 %; Neutrophils # (A) 7.3 k/uL (1.3-7.7); Neutrophils % (A) 77 %; Platelet Count 254 k/uL (150-450); RBC 4.42 m/uL (3.80-5.40); RDW 13.9 % (11.5-15.5); WBC 9.5 k/uL (3.8-10.6)
--- NOTE | 2018-03-05 12:32 | P.CONS ---
History of Present Illness - Reason for Consult Consult date: 03/05/18 Medical management Requesting physician: Gregorio New - Chief Complaint psychosis - History of Present Illness 57 year old female who has been admitted to the mental health unit due to psychosis and paranoia. Dr. Berkowitz was consulted for medical management. Patient was seen and examined in the mental health unit with Dr. Berkowitz. Patient continues to voice that the [facility] and FBI are following her and interfering with her life. Medically, the patient denies any complaints. She denies shortness of breath, cough, or congestion. Denies chest pain or pressure. Denies nausea or vomiting. Denies lightheadedness or dizziness. Denies fever or chills. Laboratory data upon admission reveals white count 11.6. Hemoglobin 14.3. Platelet count 332. Sodium 138. Potassium 4.7. Glucose 106. Urinalysis was abnormal with 1+ protein, 3+ glucose, small hematuria, large leukocyte esterase, RBC 73, epithelial cells 3. The patient denies any urinary signs or symptoms such as increased frequency, urgency, dysuria, burning with urination, or malodorous urine. REVIEW OF SYSTEMS: Those systems with pertinent positive or pertinent negative responses have been documented in the HPI PHYSICAL EXAM: GENERAL: This is a 57-year-old female in no apparent distress at the time of examination. Pleasant and cooperative. HEENT: Head is atraumatic, normocephalic. Pupils are equal, round, and reactive to light. Sclerae anicteric. Conjunctivae are clear. Mucus membranes of the mouth are moist. Neck is supple. RESPIRATORY: Clear to auscultation. No wheezes, rales, or rhonchi. No use of accessory muscles. Patient maintaining oxygen saturation greater than 92%. No chest wall tenderness is noted on palpation or with deep breathing. CARDIOVASCULAR: Regular rate and rhythm. S1 and S2 noted. No systolic or diastolic murmur auscultated. No JVD noted. No S3 or S4 noted. GASTROINTESTINAL: No distention noted. Abdomen soft and round. Normal active bowel sounds auscultated x 4 quadrants. No pain or tenderness noted upon palpation. INTEGUMENTARY: No cyanosis. No jaundice. No rashes noted. No cellulitis noted. EXTREMITIES: 2+ peripheral pulses. No evidence of peripheral edema. No calf tenderness noted. NEUROLOGIC: Cranial nerves II-XII intact. PSYCHIATRIC: Awake, alert, and oriented X 3. Appropriate affect. Intact judgement and insight. ASSESSMENT: Acute psychosis Pyuria, patient is asymptomatic Hypertension Hx of hypothyroidism, TSH within normal limits Morbid obesity: BMI 45.3 Nicotine dependence PLAN: Continue psychiatric care per Dr. New Repeat urinalysis with culture No antibiotics at this time as patient is completely asymptomatic. Will await culture results Home meds as appropriate Monitor vital signs and address as appropriate Further recommendations pending patient's course Thank you for this consultation Please do not hesitate to contact us with any questions or concerns regarding [facility] Nurse practitioner note has been reviewed by physician. Signing provider agrees with the documented findings, assessment, and plan of care. Past Medical History Past Medical History: Hypertension, Thyroid Disorder History of Any Multi-Drug Resistant Organisms: None Reported Additional Past Surgical History / Comment(s): sinus surgery Past Anesthesia/Blood Transfusion Reactions: No Reported Reaction Past Psychological History: Anxiety, Schizoaffective Disorder, Schizophrenia Smoking Status: Current every day smoker Past Alcohol Use History: Occasional Past Drug Use History: None Reported Medications and Allergies Home Medications Medication Instructions Recorded Confirmed Type Levothyroxine Sodium [Levo-T] 50 mcg PO DAILY #14 tablet 06/10/17 03/03/18 Rx Lisinopril [Zestril] 10 mg PO DAILY 11/10/17 03/03/18 History ARIPiprazole [Abilify] 15 mg PO DAILY #14 tab 11/20/17 03/03/18 Rx Allergies Allergy/AdvReac Type Severity Reaction Status Date / Time meperidine HCl [From Demerol] Allergy Unknown Verified 03/03/18 19:10 olanzapine [From Zyprexa] Allergy Unknown Verified 03/03/18 19:10 paliperidone [From Invega] Allergy Unknown Verified 03/03/18 19:10 Physical Exam Vitals: Vital Signs Temp Pulse Resp BP 03/05/18 08:59 111 H 20 158/92 03/05/18 07:14 98.1 F 104 H 16 141/89 03/04/18 20:08 107 H 16 124/57 Results CBC & Chem 7: 03/05/18 10:28 03/04/18 10:42 Labs: Abnormal Lab Results - Last 24 Hours (Table) 03/04/18 03/04/18 03/04/18 Range/Units 10:42 10:42 10:42 WBC 11.6 H (3.8-10.6) k/uL Neutrophils # 9.0 H (1.3-7.7) k/uL Glucose 106 H (74-99) mg/dL Hemoglobin A1c 6.5 H (4.0-6.0) % Triglycerides 171 H (<150) mg/dL LDL Cholesterol, Calc 114 H (0-99) mg/dL
[2018-03-05 14:26] LABS: Appearance,Urine Cloudy (Clear); Bacteria,Urine Many /hpf; Bilirubin,Urine Negative (Negative); Blood,Urine Negative (Negative); Color,Urine Light Yellow; Glucose,Urine (UA) Negative (Negative); Ketones,Urine Negative (Negative); Leukocyte Esterase,Urine Large (Negative); Nitrite,Urine Negative (Negative); PH, Urine 6.5 (5.0-8.0); Protein,Urine Negative (Negative); RBC,Urine 1 /hpf (0-5); Specific Gravity,Urine 1.003 (1.001-1.035); Squamous Epithelial Cell,Urine 1 /hpf (0-4); Urobilinogen,Urine <2.0 mg/dL (<2.0); WBC,Urine 27 /hpf (0-5)
[2018-03-05] MEDS: cloNIDine HCL 0.1 MG TAB PO SCH ×2 (21:40→21:55)
[2018-03-06] MEDS: LEVOTHYROXINE 50 MCG TAB PO SCH (06:08)
[2018-03-06] MEDS: cloNIDine HCL 0.1 MG TAB PO SCH ×2 (08:53→20:47)
[2018-03-06] MEDS: risperiDONE 2 MG TAB PO SCH (08:53)
[2018-03-06] MEDS: LISINOPRIL 10 MG TAB PO SCH (08:53)
--- NOTE | 2018-03-06 12:15 | P.PN ---
Subjective Progress Note Date: 03/06/18 Principal diagnosis: Bipolar affective disorder-acute psychosis I feel somewhat better. My blood pressure is elevated and I am anxious. Patient rambles and tangential. Objective - Vital Signs Vital signs: Vital Signs Temp 98.0 F 03/06/18 04:23 Pulse 91 03/06/18 08:08 Resp 16 03/06/18 04:23 BP 132/68 03/06/18 08:08 Pulse Ox 97 03/03/18 18:46 - Labs CBC & Chem 7: 03/05/18 10:28 03/04/18 10:42 Labs: Abnormal Lab Results - Last 24 Hours (Table) 03/05/18 Range/Units 14:00 Urine Appearance Cloudy H (Clear) Ur Leukocyte Esterase Large H (Negative) Urine WBC 27 H (0-5) /hpf Urine Bacteria Many H (None) /hpf Microbiology - Last 24 Hours (Table) 03/05/18 14:00 Urine Culture - Preliminary Urine,Clean Catch Assessment and Plan (1) Bipolar 1 disorder with moderate ryanne Narrative/Plan: This is a 57-year-old female the ER for evaluation of suicidal deviation, patient states feels psychotic, patient is delusional feels like she is read by both to [employer] and FB[facility]li MD Complaint: suicidal ideation, feels depressed -: unknown Associated Psychiatric Symptoms: depression, suicidal ideation, homicidal ideation, delusions History of same: Yes Quality: intermittent Improves With: none Worsens With: none Context: not taking psychiatric medications Associated Symptoms: denies other symptoms Treatments Prior to Arrival: none If Self Harm: has plan - Related Data Home Medications Medication Instructions Recorded Confirmed Lisinopril [Zestril] 10 mg PO DAILY 11/10/17 03/03/18 Previous Rx's Medication Instructions Recorded Levothyroxine Sodium [Levo-T] 50 mcg PO DAILY #14 tablet 06/10/17 ARIPiprazole [Abilify] 15 mg PO DAILY #14 tab 11/20/17 Allergies Allergy/AdvReac Type Severity Reaction Status Date / Time meperidine HCl [From Demerol] Allergy Unknown Verified 03/03/18 19:10 olanzapine [From Zyprexa] Allergy Unknown Verified 03/03/18 19:10 paliperidone [From Invega] Allergy Unknown Verified 03/03/18 19:10 Past Medical History Past Medical History: Hypertension, Thyroid Disorder History of Any Multi-Drug Resistant Organisms: None Reported Additional Past Surgical History / Comment(s): sinus surgery Past Anesthesia/Blood Transfusion Reactions: No Reported Reaction Past Psychological History: Anxiety, Schizoaffective Disorder, Schizophrenia Smoking Status: Current every day smoker Past Alcohol Use History: Occasional Past Drug Use History: None Reported PAST PSYCHIATRIC HISTORY: She reports that this would be her third inpatient admission. She reports being here in numerous years ago and then later going to [place] for 6 months. She was previously on Risperdal 2 mg daily and Wellbutrin dosage unknown. She was tried on Abilify in the past but it did not "change my brain waves enough to keep them out". She denies any history of suicide attempts. PMH: Possible hypothyroidism she states that she took [place] Thyroid in the past. Laboratory values reflect an elevated TSH at 7.910 with a normal free T4. ALLERGIES: Demerol MEDICATIONS: None at this time CHEMICAL DEPENDENCY HISTORY: She reports using alcohol 2-3 times a week having 3 -4 glasses of wine on an occasion. She denies using any illicit drugs. She reports she's never been placed in residential treatment for chemical dependency reasons. FAMILY PSYCHIATRIC HISTORY: Her father was known to have depression, no history of suicides in the family. FAMILY CHEMICAL DEPENDENCY HISTORY: None reported SOCIAL HISTORY: The patient is a 53-year-old female. She reports that she lives alone and receives a Social Security income of over $600 a month. She states that she lives in her own apartment. She is unemployed. She has 3 children ages 1923 and 24. She reports that she has 2 associates degrees in a master's from [employer]. Musculoskeletal Examination - Abnormal/Involuntary Movements: [none] Strength: [greater than antigravity (greater than/equal to 3/5) in all extremities] Muscle Tone: [no impairment] Gait: [grossly normal Station: [grossly normal] Mental Status Examination - General Appearance: [ disheveled, bizarre, appears older than stated age Speech/Language: [spontaneous, rapid, rambled, monotone, expressive loud] Attitude/Behavior: [cooperative, guarded, irritable] Mood: [depressed, euphoric, anxious, elated, irritable, angry, fearful, hopelessness, other] Affect: [ lively, flat, labile] Orientation: [time, person, place situation] Thought Content: [ delusions, obsessions, phobias, other] Risk Factors: [she is suicidal (ideations, plan), not Homicidal (ideations, plan)] Perception: [wnl] Thought Processes: [concrete, circumstantial, tangential] Concentration/Attention Span: [ impaired] [Per observation and interview with the patient] Recent Memory: [impaired] [ 1 out of 3 in 3 minutes] Remote Memory: [wnl] [past events, as related history] Intelligence: [average] [based on history, based on vocabulary, syntax, grammar , and content] Judgement: [fair] [per patient's behavior/history of present illness] Insight: [fair] [understanding severity of illness/history of present illness] Admitting Diagnosis: [bipolar affective disorder-acute psychosis] Patient Limitations: [medication, non-compliance, pathological/unsupported environment, no interests, intellectual impairment Initial Plan of Care: [admission formal voluntary; 15 minutes checks; medical, psychiatric,nursing and recreational. [facility] and milieu environment ] add risperdal 4 mg po qhs; group and learn coping mechanisms; add clonidine 0.1 mg bid; Wellbutrin 150 mg SR po qam Estimated Length of Stay: [4 days] Initial Discharge Plan: [home, [facility], referred to therapist Prognosis: [ guarded] STRENGTHS/WEAKNESSES: Strengths housing, income, willingness to remain hospitalized voluntarily and restart medication weaknesses current psychosis and recent noncompliance with medication INTELLECTUAL FUNCTIONING: Estimated at average Current Visit: Yes Status: Acute Priority: Medium Code(s): F31.12 - BIPOLAR DISORD, CRNT EPISODE MANIC W/O PSYCH FEATURES, MOD SNOMED Code(s): 44986941 (2) Psychosis Current Visit: Yes Status: Acute Priority: Medium Code(s): F29 - UNSP PSYCHOSIS NOT DUE TO A SUBSTANCE OR KNOWN PHYSIOL COND SNOMED Code(s): 28605645 Time with Patient: Less than 30
[2018-03-06] MEDS: buPROPion SR 150 MG TABLET.ER PO SCH (13:01)
[2018-03-07] MEDS: THYROID, PORK 30 MG TAB PO SCH (06:44)
[2018-03-07] MEDS: LISINOPRIL 10 MG TAB PO SCH (08:30)
[2018-03-07] MEDS: cloNIDine HCL 0.1 MG TAB PO SCH ×3 (08:30→21:00)
[2018-03-07] MEDS: risperiDONE 2 MG TAB PO SCH ×2 (08:30→08:34)
[2018-03-07] MEDS ORDERED: buPROPion SR 150 MG TABLET.ER PO SCH (09:00)
[2018-03-07] MEDS: buPROPion SR 150 MG TABLET.ER PO SCH (11:56)
[2018-03-07] MEDS: LEVOFLOXACIN 750 MG TAB PO SCH (11:56)
--- NOTE | 2018-03-07 12:55 | P.PN ---
Subjective Progress Note Date: 03/07/18 Principal diagnosis: Bipolar affective disorder-acute psychosis I feel somewhat better. My blood pressure is elevated and I am anxious. Patient rambles and tangential. She continues to live to not be on adherent to treatment but wanted to live with Objective - Vital Signs Vital signs: Vital Signs Temp 98.0 F 03/07/18 06:55 Pulse 97 03/07/18 08:36 Resp 16 03/07/18 08:36 BP 125/64 03/07/18 08:36 Pulse Ox 97 03/03/18 18:46 - Labs CBC & Chem 7: 03/05/18 10:28 03/04/18 10:42 Labs: Microbiology - Last 24 Hours (Table) 03/05/18 14:00 Urine Culture - Preliminary Urine,Clean Catch Gram Neg Bacilli Assessment and Plan (1) Bipolar 1 disorder with moderate ryanne Narrative/Plan: This is a 57-year-old female the ER for evaluation of suicidal deviation, patient states feels psychotic, patient is delusional feels like she is read by both to [facility] and [employer] MD Complaint: suicidal ideation, feels depressed -: unknown Associated Psychiatric Symptoms: depression, suicidal ideation, homicidal ideation, delusions History of same: Yes Quality: intermittent Improves With: none Worsens With: none Context: not taking psychiatric medications Associated Symptoms: denies other symptoms Treatments Prior to Arrival: none If Self Harm: has plan - Related Data Home Medications Medication Instructions Recorded Confirmed Lisinopril [Zestril] 10 mg PO DAILY 11/10/17 03/03/18 Previous Rx's Medication Instructions Recorded Levothyroxine Sodium [Levo-T] 50 mcg PO DAILY #14 tablet 06/10/17 ARIPiprazole [Abilify] 15 mg PO DAILY #14 tab 11/20/17 Allergies Allergy/AdvReac Type Severity Reaction Status Date / Time meperidine HCl [From Demerol] Allergy Unknown Verified 03/03/18 19:10 olanzapine [From Zyprexa] Allergy Unknown Verified 03/03/18 19:10 paliperidone [From Invega] Allergy Unknown Verified 03/03/18 19:10 Past Medical History Past Medical History: Hypertension, Thyroid Disorder History of Any Multi-Drug Resistant Organisms: None Reported Additional Past Surgical History / Comment(s): sinus surgery Past Anesthesia/Blood Transfusion Reactions: No Reported Reaction Past Psychological History: Anxiety, Schizoaffective Disorder, Schizophrenia Smoking Status: Current every day smoker Past Alcohol Use History: Occasional Past Drug Use History: None Reported PAST PSYCHIATRIC HISTORY: She reports that this would be her third inpatient admission. She reports being here in numerous years ago and then later going to [place] for 6 months. She was previously on Risperdal 2 mg daily and Wellbutrin dosage unknown. She was tried on Abilify in the past but it did not "change my brain waves enough to keep them out". She denies any history of suicide attempts. PMH: Possible hypothyroidism she states that she took [place] Thyroid in the past. Laboratory values reflect an elevated TSH at 7.910 with a normal free T4. ALLERGIES: Demerol MEDICATIONS: None at this time CHEMICAL DEPENDENCY HISTORY: She reports using alcohol 2-3 times a week having 3 -4 glasses of wine on an occasion. She denies using any illicit drugs. She reports she's never been placed in residential treatment for chemical dependency reasons. FAMILY PSYCHIATRIC HISTORY: Her father was known to have depression, no history of suicides in the family. FAMILY CHEMICAL DEPENDENCY HISTORY: None reported SOCIAL HISTORY: The patient is a 53-year-old female. She reports that she lives alone and receives a Social Security income of over $600 a month. She states that she lives in her own apartment. She is unemployed. She has 3 children ages 1923 and 24. She reports that she has 2 associates degrees in a master's from [employer]. Musculoskeletal Examination - Abnormal/Involuntary Movements: [none] Strength: [greater than antigravity (greater than/equal to 3/5) in all extremities] Muscle Tone: [no impairment] Gait: [grossly normal Station: [grossly normal] Mental Status Examination - General Appearance: [ disheveled, bizarre, appears older than stated age Speech/Language: [spontaneous, rapid, rambled, monotone, expressive loud] Attitude/Behavior: [cooperative, guarded, irritable] Mood: [depressed, euphoric, anxious, elated, irritable, angry, fearful, hopelessness, other] Affect: [ lively, flat, labile] Orientation: [time, person, place situation] Thought Content: [ delusions, obsessions, phobias, other] Risk Factors: [she is suicidal (ideations, plan), not Homicidal (ideations, plan)] Perception: [wnl] Thought Processes: [concrete, circumstantial, tangential] Concentration/Attention Span: [ impaired] [Per observation and interview with the patient] Recent Memory: [impaired] [ 1 out of 3 in 3 minutes] Remote Memory: [wnl] [past events, as related history] Intelligence: [average] [based on history, based on vocabulary, syntax, grammar , and content] Judgement: [fair] [per patient's behavior/history of present illness] Insight: [fair] [understanding severity of illness/history of present illness] Admitting Diagnosis: [bipolar affective disorder-acute psychosis] Patient Limitations: [medication, non-compliance, pathological/unsupported environment, no interests, intellectual impairment Initial Plan of Care: [admission formal voluntary; 15 minutes checks; medical, psychiatric,nursing and recreational. [facility] and milieu environment ] add risperdal 4 mg po qhs; group and learn coping mechanisms; add clonidine 0.1 mg bid; Wellbutrin 150 mg SR po qam Estimated Length of Stay: [4 days] Initial Discharge Plan: [home, [facility], referred to therapist Prognosis: [ guarded] STRENGTHS/WEAKNESSES: Strengths housing, income, willingness to remain hospitalized voluntarily and restart medication weaknesses current psychosis and recent noncompliance with medication INTELLECTUAL FUNCTIONING: Estimated at average Current Visit: Yes Status: Acute Priority: Medium Code(s): F31.12 - BIPOLAR DISORD, CRNT EPISODE MANIC W/O PSYCH FEATURES, MOD SNOMED Code(s): 83175440 (2) Psychosis Current Visit: Yes Status: Acute Priority: Medium Code(s): F29 - UNSP PSYCHOSIS NOT DUE TO A SUBSTANCE OR KNOWN PHYSIOL COND SNOMED Code(s): 50365037 Time with Patient: Less than 30
[2018-03-07] MEDS ORDERED: cloNIDine HCL 0.1 MG TAB PO STA (21:42)
[2018-03-08] MEDS: THYROID, PORK 30 MG TAB PO SCH (06:41)
[2018-03-08] MEDS: LISINOPRIL 10 MG TAB PO SCH (08:21)
[2018-03-08] MEDS: cloNIDine HCL 0.1 MG TAB PO SCH ×2 (08:21→20:09)
[2018-03-08] MEDS: risperiDONE 2 MG TAB PO SCH (08:21)
[2018-03-08] MEDS: buPROPion SR 150 MG TABLET.ER PO SCH (11:44)
[2018-03-08] MEDS: LEVOFLOXACIN 750 MG TAB PO SCH (11:44)
--- NOTE | 2018-03-08 17:09 | P.PN ---
Progress Note - Text Progress Note Date: 03/08/18 IDENTIFICATION DATA: 57-year-old female admitted due to depression, suicidal ideation, persecutory and paranoid delusions of being monitored by [employer] and [employer]. INTERVAL HISTORY: She reports feeling better today. She wants her wellbutrin dose to be changed to morning from noon . She reports feeling embarrassed about being appointed with a guardian. 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 She states she has to do lot of intellectual work and does not want too be on high doses of medications. She says her current medication combination is working very well for her and refuses to take more than 2mg of risperidone. She denies paranoid or persecutory delusions. She no longer feels that FBI is following her. She states her mother recently and her family members are fighting over her mothers inheritance and believes her recent hospitalization is part of the game played by her family. She states she is not getting the amount /worth of share she was supposed to get. However she sTATES she is not going to fight for it. She satets she is working with her guardian Emily to help her move into a safer place from her current place/boarding house. She wants to move to [facility] and is awaiting that process. She reports she has been cutting down on her calorie intake in an attempt to loose weight. Reports good sleep. Reports going to all her groups. Denies side effects from medications. No other behavioral problems reported MENTAL STATUS EXAMINATION: Appeared stated age. She is moderately obese, dressed casually. Fair grooming and hygiene. No abnormal movements noted. mood is reported as BETTER and affect appropriate. speech and thought process was goal directed. denies current auditory or visual hallucinations. denies paranoia. is alert and oriented x 4. denies current suicidal or homicidal ideations. insight and judgement are improving. ASSESSMENT AND PLAN: Will switch her wellbutirn from noon to morning per her request. She says her current medication combination is working very well for her and refuses to take more than 2mg of risperidone. States she does not want to be over medicated as she plans to work Continue current treatment. Monitor for symptoms.
[2018-03-09] MEDS: THYROID, PORK 30 MG TAB PO SCH (06:20)
[2018-03-09 06:42] VITALS: TEMP 97.4
[2018-03-09] MEDS: risperiDONE 2 MG TAB PO SCH ×3 (07:52→08:08)
[2018-03-09] MEDS: LISINOPRIL 10 MG TAB PO SCH (07:52)
[2018-03-09] MEDS: buPROPion SR 150 MG TABLET.ER PO SCH (07:52)
[2018-03-09] MEDS: cloNIDine HCL 0.1 MG TAB PO SCH ×2 (07:53→20:24)
[2018-03-09] MEDS: LEVOFLOXACIN 750 MG TAB PO SCH (11:30)
--- NOTE | 2018-03-09 16:08 | P.PN ---
Progress Note - Text Progress Note Date: 03/09/18 IDENTIFICATION DATA: 57-year-old female admitted due to depression, suicidal ideation, persecutory and paranoid delusions of being monitored by [employer] and [employer]. INTERVAL HISTORY: She reports she has been taking all her medications as prescribed. She says she is trying to work on her life stressors. She denies current symptoms of psychosis, ryanne or depression. Reports good sleep and appetite. Reports going to all her groups. Denies side effects from medications. No other behavioral problems reported MENTAL STATUS EXAMINATION: Appeared stated age. She is moderately obese, dressed casually. Fair grooming and hygiene. No abnormal movements noted. mood is reported as good and affect appropriate. speech and thought process was goal directed. denies current auditory or visual hallucinations. denies paranoia. is alert and oriented x 4. denies current suicidal or homicidal ideations. insight and judgement are improving. ASSESSMENT AND PLAN: She is complaint with all her medications Continue current treatment. Monitor for symptoms.
[2018-03-10] MEDS: THYROID, PORK 30 MG TAB PO SCH (07:18)
[2018-03-10] MEDS: buPROPion SR 150 MG TABLET.ER PO SCH (08:47)
[2018-03-10] MEDS: cloNIDine HCL 0.1 MG TAB PO SCH (08:48)
[2018-03-10] MEDS: LISINOPRIL 10 MG TAB PO SCH (08:48)
[2018-03-10] MEDS: risperiDONE 2 MG TAB PO SCH (08:49)
[2018-03-10 09:10] VITALS: BP 126/62; PULSE 96; RESP 20
--- NOTE | 2018-03-10 10:06 | P.DS ---
Providers Date of admission: 03/03/18 18:17 Expected date of discharge: 03/10/18 Attending physician: Gregorio New DO Consults: 03/03/18 18:42 Consult Physician Routine Consulting Provider: Ric Berkowitz Consult Reason/Comments: H & P Do you want consulting provider notified?: Yes Primary care physician: Ric Berkowitz - Discharge Diagnosis(es) (1) Bipolar 1 disorder with moderate ryanne This is a 57-year-old female the ER for evaluation of suicidal deviation, patient states feels psychotic, patient is delusional feels like she is read by both to [employer] and [employer] MD Complaint: suicidal ideation, feels depressed -: unknown Associated Psychiatric Symptoms: depression, suicidal ideation, homicidal ideation, delusions History of same: Yes Quality: intermittent Improves With: none Worsens With: none Context: not taking psychiatric medications Associated Symptoms: denies other symptoms Treatments Prior to Arrival: none If Self Harm: has plan - Related Data Home Medications Medication Instructions Recorded Confirmed Lisinopril [Zestril] 10 mg PO DAILY 11/10/17 03/03/18 Previous Rx's Medication Instructions Recorded Levothyroxine Sodium [Levo-T] 50 mcg PO DAILY #14 tablet 06/10/17 ARIPiprazole [Abilify] 15 mg PO DAILY #14 tab 11/20/17 Allergies Allergy/AdvReac Type Severity Reaction Status Date / Time meperidine HCl [From Demerol] Allergy Unknown Verified 03/03/18 19:10 olanzapine [From Zyprexa] Allergy Unknown Verified 03/03/18 19:10 paliperidone [From Invega] Allergy Unknown Verified 03/03/18 19:10 Past Medical History Past Medical History: Hypertension, Thyroid Disorder History of Any Multi-Drug Resistant Organisms: None Reported Additional Past Surgical History / Comment(s): sinus surgery Past Anesthesia/Blood Transfusion Reactions: No Reported Reaction Past Psychological History: Anxiety, Schizoaffective Disorder, Schizophrenia Smoking Status: Current every day smoker Past Alcohol Use History: Occasional Past Drug Use History: None Reported PAST PSYCHIATRIC HISTORY: She reports that this would be her third inpatient admission. She reports being here in numerous years ago and then later going to [place] for 6 months. She was previously on Risperdal 2 mg daily and Wellbutrin dosage unknown. She was tried on Abilify in the past but it did not "change my brain waves enough to keep them out". She denies any history of suicide attempts. PMH: Possible hypothyroidism she states that she took [place] Thyroid in the past. Laboratory values reflect an elevated TSH at 7.910 with a normal free T4. ALLERGIES: Demerol MEDICATIONS: None at this time CHEMICAL DEPENDENCY HISTORY: She reports using alcohol 2-3 times a week having 3 -4 glasses of wine on an occasion. She denies using any illicit drugs. She reports she's never been placed in residential treatment for chemical dependency reasons. FAMILY PSYCHIATRIC HISTORY: Her father was known to have depression, no history of suicides in the family. FAMILY CHEMICAL DEPENDENCY HISTORY: None reported SOCIAL HISTORY: The patient is a 53-year-old female. She reports that she lives alone and receives a Social Security income of over $600 a month. She states that she lives in her own apartment. She is unemployed. She has 3 children ages 1923 and 24. She reports that she has 2 associates degrees in a master's from [employer]. Current Visit: Yes Status: Acute Priority: Low (2) Psychosis Current Visit: Yes Status: Resolved Priority: Low Hospital Course: Plan of Care: [admission formal voluntary; 15 minutes checks; medical, psychiatric,nursing and recreational. [facility] and milieu environment ] add risperdal 2 mg po bid; group and learn coping mechanisms. Her TSH T3-T4 was evaluated after switching to armor her thyroid and found within normal limits. Her high sensitivity CRP is elevated at 25.4 and discussed with her in detail regarding she needs to lose weight and exercise since this higher rate with regular cardiovascular risk thus the cerebrovascular risk as well. She did well integrating into group therapy and recreational therapy whereby she integrated well with staff and peers in a positive attitude. Rest of her labs CBC was checked within the last week and was within normal. She did have a urinary tract infection and thus was placed on Levaquin. She should follow up with her primary care physician regarding the urinary tract infection. The patient presents alert, pleasant, and cooperative. There calmly seated without any agitated behavior. She reports that [her] mood is good. Affect is congruent and euthymic. [She] deny having any suicidal or homicidal ideation intent or plan. [She] denies any auditory or visual hallucinations. There is no evidence of any delusional thought content. [Her] thought process is linear and goal-directed. [Her] speech is fluent and nonpressured. [Her] memory and concentration is grossly intact for the purposes of this session. Patient Condition at Discharge: Stable Plan - Discharge Summary Discharge Rx Participant: Yes New Discharge Prescriptions: New buPROPion SR [Wellbutrin SR] 150 mg PO DAILY 30 Days #30 tablet.er cloNIDine HCL [Catapres] 0.1 mg PO BID 30 Days #30 tab Levofloxacin [Levaquin] 750 mg PO Q24H 4 Days #4 tab risperiDONE [RisperDAL] 4 mg PO DAILY 30 Days #30 tab Thyroid, Pork [[place] Thyroid] 15 mg PO DAILY@0630 30 Days #30 tab Continue Lisinopril [Zestril] 10 mg PO DAILY Discontinued Levothyroxine Sodium [Levo-T] 50 mcg PO DAILY #14 tablet ARIPiprazole [Abilify] 15 mg PO DAILY #14 tab Discharge Medication List Lisinopril [Zestril] 10 mg PO DAILY 11/10/17 [History] Levofloxacin [Levaquin] 750 mg PO Q24H 4 Days #4 tab 03/10/18 [Rx] Thyroid, Pork [[place] Thyroid] 15 mg PO DAILY@0630 30 Days #30 tab 03/10/18 [Rx] buPROPion SR [Wellbutrin SR] 150 mg PO DAILY 30 Days #30 tablet.er 03/10/18 [Rx] cloNIDine HCL [Catapres] 0.1 mg PO BID 30 Days #30 tab 03/10/18 [Rx] risperiDONE [RisperDAL] 4 mg PO DAILY 30 Days #30 tab 03/10/18 [Rx] Follow up Appointment(s)/Referral(s): Ric Berkowitz DO [Primary Care Provider] - 1-2 days Discharge Disposition: HOME SELF-CARE
[2018-03-10] MEDS: LEVOFLOXACIN 750 MG TAB PO SCH (12:40)
== END 2018-03-10 13:23 | disposition home or self-care (01) | DRG 885 ==
LOC: EC 14:25 → 3MHU 18:17
PROVIDERS: ADMIT Psychiatry & Neurology Psychiatry; ATTEND Psychiatry & Neurology Psychiatry
DX: F31.2 Bipolar disorder, current episode manic severe with psychotic features (principal); N39.0 Urinary tract infection, site not specified; R45.851 Suicidal ideations; Z68.42 Body mass index [BMI] 45.0-49.9, adult; E66.01 Morbid (severe) obesity due to excess calories; F17.210 Nicotine dependence, cigarettes, uncomplicated; F41.9 Anxiety disorder, unspecified; I10 Essential (primary) hypertension; R45.850 Homicidal ideations; Z79.899 Other long term (current) drug therapy; Z81.8 Family history of other mental and behavioral disorders; T43.96XA Underdosing of unspecified psychotropic drug, initial encounter; Z91.128 Patient's intentional underdosing of medication regimen for other reason; Z88.8 Allergy status to other drugs, medicaments and biological substances; Z88.5 Allergy status to narcotic agent
CPT/HCPCS: 80053; 80061; 80306; 81001; 81025; 82075; 83036; 84436; 84443; 84480; 85025; 86141; 87077; 87086; 87186; 99285

== ENCOUNTER 2018-08-14 20:13 | Inpatient (IN) | payer MEDICARE, MEDICAID ==
--- NOTE | 2018-08-14 21:20 | ED ---
General Adult HPI - General Chief complaint: Psychiatric Symptoms Stated complaint: Mental Health Time Seen by Provider: 08/14/18 20:40 Source: patient, RN notes reviewed Mode of arrival: ambulatory Limitations: no limitations - History of Present Illness Initial comments: Patient is a pleasant 57-year-old female presenting to the emergency department with hallucinations and suicidal thoughts. Symptoms have been occurring for several days. Patient feels the government or [employer] or [employer] is trying to kill her. They are messing with her feet as well as putting in green gas into her living space. Patient does have thoughts of overdosing with her medications. Patient states she is trying to adjust the dosing on her medication however she does not feel it is going well. No homicidal thoughts. No alcohol or street drug use. No new physical complaints. - Related Data Home Medications Medication Instructions Recorded Confirmed Lisinopril [Zestril] 10 mg PO DAILY 11/10/17 08/14/18 Thyroid, Pork [[place] Thyroid] 1 dose PO DIRECTED 08/14/18 08/14/18 buPROPion SR [Wellbutrin SR] 150 mg PO DAILY 08/14/18 08/14/18 cloNIDine HCL [Catapres] 0.1 mg PO HS 08/14/18 08/14/18 risperiDONE [RisperDAL] 4 mg PO DAILY 08/14/18 08/14/18 Allergies Allergy/AdvReac Type Severity Reaction Status Date / Time meperidine HCl [From Demerol] Allergy Unknown Verified 08/14/18 21:40 olanzapine [From Zyprexa] Allergy Unknown Verified 08/14/18 21:40 paliperidone [From Invega] Allergy Unknown Verified 08/14/18 21:40 Review of Systems ROS Statement: Those systems with pertinent positive or pertinent negative responses have been documented in the HPI. ROS Other: All systems not noted in ROS Statement are negative. Constitutional: Denies: fever Eyes: Denies: eye pain ENT: Denies: ear pain Respiratory: Denies: dyspnea Cardiovascular: Denies: palpitations Endocrine: Denies: fatigue Gastrointestinal: Denies: abdominal pain Genitourinary: Denies: dysuria Musculoskeletal: Denies: back pain Skin: Denies: rash Neurological: Denies: weakness Past Medical History Past Medical History: Hypertension, Thyroid Disorder History of Any Multi-Drug Resistant Organisms: None Reported Additional Past Surgical History / Comment(s): sinus surgery Past Anesthesia/Blood Transfusion Reactions: No Reported Reaction Past Psychological History: Anxiety, Schizoaffective Disorder, Schizophrenia Smoking Status: Current every day smoker Past Alcohol Use History: Occasional Past Drug Use History: None Reported General Exam Limitations: no limitations General appearance: alert, in no apparent distress Head exam: Present: normocephalic Eye exam: Present: normal appearance, PERRL ENT exam: Present: normal oropharynx Neck exam: Present: normal inspection Respiratory exam: Present: normal lung sounds bilaterally Cardiovascular Exam: Present: regular rate, normal rhythm GI/Abdominal exam: Present: soft. Absent: tenderness Extremities exam: Present: normal inspection. Absent: pedal edema, calf tenderness Neurological exam: Present: alert Psychiatric exam: Present: normal affect, normal mood Skin exam: Present: normal color Course Vital Signs 08/14/18 20:29 Temperature 98.8 F Pulse Rate 105 H Respiratory 18 Rate Blood Pressure 136/92 O2 Sat by Pulse 95 Oximetry Medical Decision Making - Medical Decision Making Patient seen by mental health services, who will admit. Disposition Clinical Impression: Suicidal ideation, Acute psychosis Disposition: TRANSFER TO PSYCH HOSP/UNIT Is patient prescribed a controlled substance at d/c from ED?: No Referrals: Ric Berkowitz DO [Primary Care Provider] - 1-2 days Decision Time: 21:58
[2018-08-14 22:20] LABS: Appearance,Urine Clear (Clear); Bilirubin,Urine Negative (Negative); Blood,Urine Negative (Negative); Color,Urine Yellow; Glucose,Urine (UA) Negative (Negative); Ketones,Urine Negative (Negative); Leukocyte Esterase,Urine Negative (Negative); Nitrite,Urine Negative (Negative); Protein,Urine Negative (Negative); Specific Gravity,Urine 1.013 (1.001-1.035); Urobilinogen,Urine <2.0 mg/dL (<2.0)
[2018-08-14] MEDS ORDERED: LORazepam 1 MG TAB PO PRN (22:23)
[2018-08-14] MEDS ORDERED: ACETAMINOPHEN TAB 325 MG TAB PO PRN (22:23)
[2018-08-14] MEDS ORDERED: MAG HYDROX/AL HYDROX/SIMETH 30 ML CUP PO PRN (22:23)
[2018-08-14] MEDS ORDERED: ZIPRASIDONE 20 MG VIAL IM PRN (22:23)
[2018-08-14] MEDS ORDERED: MAGNESIUM HYDROXIDE 2,400 MG/10 ML CUP PO PRN (22:23)
[2018-08-14 22:30] LABS: Amphetamine Screen,Urine Not Detected (NotDetected); Barbiturate Screen,Urine Not Detected (NotDetected); Benzodiazepines Screen,Urine Not Detected (NotDetected); Cocaine Screen,Urine Not Detected (NotDetected); Methadone Screen, Urine Not Detected (NotDetected); Opiate Screen,Urine Not Detected (NotDetected); Oxycodone Screen, Urine Not Detected (NotDetected); Phencyclidine Screen,Urine Not Detected (NotDetected); Tricyclic Antidepressant,Urine Not Detected (NotDetected); Urn Cannabinoid Scrn Not Detected (NotDetected)
[2018-08-14] MEDS ORDERED: THYROID, PORK 30 MG TAB PO SCH (22:45)
[2018-08-15 01:17] VITALS: BMI 46.8
[2018-08-15] MEDS: buPROPion SR 150 MG TABLET.ER PO SCH (08:50)
[2018-08-15] MEDS: LISINOPRIL 10 MG TAB PO SCH (08:50)
[2018-08-15] MEDS ORDERED: risperiDONE 2 MG TAB PO SCH ×2 (09:00→21:00)
[2018-08-15 09:46] LABS: Basophils # (A) 0.1 k/uL (0-0.2); Basophils % (A) 1 %; Eosinophils # (A) 0.6 k/uL (0-0.7); Eosinophils % (A) 7 %; HGB 14.2 gm/dL (11.4-16.0); Lymphocytes # (A) 0.8 k/uL (1.0-4.8); Lymphocytes % (A) 9 %; MCH 31.4 pg (25.0-35.0); MCHC 32.9 g/dL (31.0-37.0); MCV 95.6 fL (80.0-100.0); Mean Platelet Volume 7.9; Monocytes # (A) 0.5 k/uL (0-1.0); Monocytes % (A) 6 %; Neutrophils # (A) 6.8 k/uL (1.3-7.7); Neutrophils % (A) 76 %; Platelet Count 280 k/uL (150-450); RDW 13.8 % (11.5-15.5); WBC 8.9 k/uL (3.8-10.6)
[2018-08-15 09:57] LABS: ALT 45 U/L (9-52); AST 30 U/L (14-36); Alkaline Phosphatase 82 U/L (38-126); Anion Gap 7 mmol/L; Bilirubin, Delta 0.4 mg/dL (0.0-0.2); Bilirubin,Unconjugated 0.4 mg/dL (0.0-1.1); Blood Urea Nitrogen 14 mg/dL (7-17); Calcium 9.1 mg/dL (8.4-10.2); Carbon Dioxide 29 mmol/L (22-30); Chloride 102 mmol/L (98-107); Cholesterol 161 mg/dL (<200); Glucose 188 mg/dL (74-99); HDL Cholesterol 37 mg/dL (40-60); LDL Cholesterol,Calculated 81 mg/dL (0-99); Potassium 5.1 mmol/L (3.5-5.1); Sodium 138 mmol/L (137-145); Total Bilirubin 0.8 mg/dL (0.2-1.3); Total Protein 6.7 g/dL (6.3-8.2); Triglycerides 217 mg/dL (<150)
--- NOTE | 2018-08-15 10:06 | P.HP ---
Psychiatric H&P - . H&P Date: 08/15/18 History & Physical: Allergies Allergy/AdvReac Type Severity Reaction Status Date / Time meperidine HCl [From Demerol] Allergy Unknown Verified 08/14/18 21:40 olanzapine [From Zyprexa] Allergy Unknown Verified 08/14/18 21:40 paliperidone [From Invega] Allergy Unknown Verified 08/14/18 21:40 Vital Signs Temp 98.9 F 08/15/18 06:25 Pulse 83 08/15/18 06:25 Resp 15 08/15/18 06:25 BP 117/68 08/15/18 06:25 Pulse Ox 95 08/15/18 00:59 Intake & Output 08/14/18 08/15/18 08/15/18 18:59 06:59 18:59 Weight 113.443 kg Laboratory Last Values WBC 8.9 k/uL (3.8-10.6) 08/15/18 09:17 RBC 4.50 m/uL (3.80-5.40) 08/15/18 09:17 Hgb 14.2 gm/dL (11.4-16.0) 08/15/18 09:17 Hct 43.0 % (34.0-46.0) 08/15/18 09:17 MCV 95.6 fL (80.0-100.0) 08/15/18 09:17 MCH 31.4 pg (25.0-35.0) 08/15/18 09:17 MCHC 32.9 g/dL (31.0-37.0) 08/15/18 09:17 RDW 13.8 % (11.5-15.5) 08/15/18 09:17 Plt Count 280 k/uL (150-450) 08/15/18 09:17 Neutrophils % 76 % 08/15/18 09:17 Lymphocytes % 9 % 08/15/18 09:17 Monocytes % 6 % 08/15/18 09:17 Eosinophils % 7 % 08/15/18 09:17 Basophils % 1 % 08/15/18 09:17 Neutrophils # 6.8 k/uL (1.3-7.7) 08/15/18 09:17 Lymphocytes # 0.8 k/uL (1.0-4.8) L 08/15/18 09:17 Monocytes # 0.5 k/uL (0-1.0) 08/15/18 09:17 Eosinophils # 0.6 k/uL (0-0.7) 08/15/18 09: Basophils # 0.1 k/uL (0-0.2) 08/15/18 09: Chloride 102 mmol/L (98-107) 08/15/18 09: Glucose 188 mg/dL (74-99) H 08/15/18 09: Total Protein 6.7 g/dL (6.3-8.2) 08/15/18: Albumin 4.0 g/dL (3.5-5.0) 08/15/18 09: Triglycerides 217 mg/dL (<150) H 08/15/18: Cholesterol 161 mg/dL (<200) 08/15/18 09: Urine Color Yellow 08/14/18 22:00 Urine Appearance Clear (Clear) 08/14/18 22:00 Urine pH 6.0 (5.0-8.0) 08/14/18 22:00 Ur Specific [place] 1.013 (1.001-1.035) 08/14/18 22:00 Urine Protein Negative (Negative) 08/14/18 22:00 Urine Glucose (UA) Negative (Negative) 08/14/18 22:00 Urine Ketones Negative (Negative) 08/14/18 22:00 Urine Blood Negative (Negative) 08/14/18 22:00 Urine Nitrite Negative (Negative) 08/14/18 22:00 Urine Bilirubin Negative (Negative) 08/14/18 22:00 Urine Urobilinogen <2.0 mg/dL (<2.0) 08/14/18 22:00 Ur Leukocyte Esterase Negative (Negative) 08/14/18 22:00 Urine Opiates Screen Not Detected (NotDetected) 08/14/18 22:00 Ur Oxycodone Screen Not Detected (NotDetected) 08/14/18 22:00 Urine Methadone Screen Not Detected (NotDetected) 08/14/18 22:00 Ur Propoxyphene Screen Not Detected (NotDetected) 08/14/18 22:00 Ur Barbiturates Screen Not Detected (NotDetected) 08/14/18 22:00 U Tricyclic Antidepress Not Detected (NotDetected) 08/14/18 22:00 Ur Phencyclidine Scrn Not Detected (NotDetected) 08/14/18 22:00 Ur Amphetamines Screen Not Detected (NotDetected) 08/14/18 22:00 U Methamphetamines Scrn Not Detected (NotDetected) 08/14/18 22:00 U Benzodiazepines Scrn Not Detected (NotDetected) 08/14/18 22:00 Urine Cocaine Screen Not Detected (NotDetected) 08/14/18 22:00 U Marijuana (THC) Screen Not Detected (NotDetected) 08/14/18 22:00 Assessment and Plan (1) Bipolar 1 disorder with moderate ryanne Narrative/Plan: Patient is a pleasant 57-year-old female presenting to the emergency department with hallucinations and suicidal thoughts. Symptoms have been occurring for several days. Patient feels the [employer] or [employer] or [employer] is trying to kill her. They are messing with her feet as well as putting in green gas into her living space. Patient does have thoughts of overdosing with her medications. Patient states she is trying to adjust the dosing on her medication however she does not feel it is going well. No homicidal thoughts. No alcohol or street drug use. No new physical complaints. Pt. brings self to ER stating she feels suicidal. Pt. delusional and believes the government is out to get her and may be the ones responsible for the of her brother her in April at the age of 54. "The government is after me and are targeting me through the vent system. They are putting green mist through the vent and using plastics to control my breath." - Related Data Home Medications Medication Instructions Recorded Confirmed Lisinopril [Zestril] 10 mg PO DAILY 11/10/17 08/14/18 Thyroid, Pork [[place] Thyroid] 1 dose PO DIRECTED 08/14/18 08/14/18 buPROPion SR [Wellbutrin SR] 150 mg PO DAILY 08/14/18 08/14/18 cloNIDine HCL [Catapres] 0.1 mg PO HS 08/14/18 08/14/18 risperiDONE [RisperDAL] 4 mg PO DAILY 08/14/18 08/14/18 Allergies Allergy/AdvReac Type Severity Reaction Status Date / Time meperidine HCl [From Demerol] Allergy Unknown Verified 08/14/18 21:40 olanzapine [From Zyprexa] Allergy Unknown Verified 08/14/18 21:40 paliperidone [From Invega] Allergy Unknown Verified 08/14/18 21:40 Past Medical History Past Medical History: Hypertension, Thyroid Disorder History of Any Multi-Drug Resistant Organisms: None Reported Additional Past Surgical History / Comment(s): sinus surgery Past Anesthesia/Blood Transfusion Reactions: No Reported Reaction Past Psychological History: Anxiety, Schizoaffective Disorder, Schizophrenia Smoking Status: Current every day smoker Past Alcohol Use History: Occasional Past Drug Use History: None Reported PAST PSYCHIATRIC HISTORY: She reports that this would be her third inpatient admission. She reports being here in numerous years ago and then later going to [place] for 6 months. She was previously on Risperdal 2 mg daily and Wellbutrin dosage unknown. She was tried on Abilify in the past but it did not "change my brain waves enough to keep them out". She denies any history of suicide attempts. PMH: Possible hypothyroidism she states that she took [place] Thyroid in the past. CHEMICAL DEPENDENCY HISTORY: She reports using alcohol 2-3 times a week having 3-4 glasses of wine on an occasion. She denies using any illicit drugs. She reports she's never been placed in residential treatment for chemical dependency reasons. FAMILY PSYCHIATRIC HISTORY: Her father was known to have depression, no history of suicides in the family. FAMILY CHEMICAL DEPENDENCY HISTORY: None reported SOCIAL HISTORY: The patient is a 57-year-old female. She reports that she lives alone and receives a Social Security income of over $600 a month. She states that she lives in her own apartment. She is unemployed. She has 3 children. She reports that she has 2 associates degrees in a master's from [employer]. Musculoskeletal Examination - Abnormal/Involuntary Movements: [none] Strength: [greater than antigravity (greater than/equal to 3/5) in all extremities] Muscle Tone: [no impairment] Gait: [grossly normal Station: [grossly normal] Mental Status Examination - General Appearance: [ disheveled, bizarre, appears older than stated age Speech/Language: [spontaneous, rapid, rambled, monotone, expressive loud] Attitude/Behavior: [cooperative, guarded, irritable] Mood: [depressed, euphoric, anxious, elated, irritable, angry, fearful, hopelessness, other] Affect: [ lively, flat, labile] Orientation: [time, person, place situation] Thought Content: [ delusions, obsessions, phobias, other] Risk Factors: [she is suicidal (ideations, plan), not Homicidal (ideations, plan)] Perception: [wnl] Thought Processes: [concrete, circumstantial, tangential] Concentration/Attention Span: [ impaired] [Per observation and interview with the patient] Recent Memory: [impaired] [0 out of 3 in 3 minutes] Remote Memory: [wnl] [past events, as related history] Intelligence: [average] [based on history, based on vocabulary, syntax, grammar, and content] Judgement: [poor] [per patient's behavior/history of present illness] Insight: [poor] [understanding severity of illness/history of present illness] Admitting Diagnosis: [bipolar affective disorder-acute psychosis] Patient Strengths - Personal Skills: [x] Achievements: [x] Housing stability: [x] Able to vocalize needs: [x] Motivation, determination, readiness for change: [x] Patient Limitations: [medication, non-compliance, pathological/unsupported environment, no interests, intellectual impairment Initial Plan of Care: [admission formal voluntary; 15 minutes checks; medical, psychiatric,nursing and recreational. [facility] and milieu environment. She'll be evaluated by medicine, psychiatry, nursing staff, social work and occupational therapy to develop a biopsychosocial evaluation for disposition and discharge purposes. She is less manic than her prior hospitalization. ] change risperdal 2 mg po bid; group and learn coping mechanisms Estimated Length of Stay: [5-7 days] Initial Discharge Plan: [[facility], referred to therapist Prognosis: [ guarded] Justification for Inpatient Hospitalization - [Hallucinations, delusions, agitation, anxiety, depression resulting in significant loss of functioning.] [Dangerous to self, others, or property with need for controlled environment.] [Emotional or behavioral conditions and complications requiring 24 hour medical and nursing care.] [Need for special drug therapy, or other therapeutic program requiring continuous hospitalization.] [Failure of social or occupational functioning.] [Inability to meet basic life and health needs.] Current Visit: No Status: Acute Priority: Low Code(s): F31.12 - BIPOLAR DISORD, CRNT EPISODE MANIC W/O PSYCH FEATURES, MOD SNOMED Code(s): 56793281
[2018-08-15] MEDS: LEVOTHYROXINE 75 MCG TAB PO SCH (11:18)
[2018-08-15 19:49] LABS: Hemoglobin A1C 6.9 % (4.0-6.0)
[2018-08-15] MEDS: risperiDONE 2 MG TAB PO SCH (23:22)
[2018-08-15] MEDS: cloNIDine HCL 0.1 MG TAB PO SCH (23:22)
[2018-08-16] MEDS: LEVOTHYROXINE 75 MCG TAB PO SCH (06:29)
[2018-08-16] MEDS: risperiDONE 2 MG TAB PO SCH ×2 (08:23→20:40)
[2018-08-16] MEDS: LISINOPRIL 10 MG TAB PO SCH (08:23)
[2018-08-16] MEDS: cloNIDine HCL 0.1 MG TAB PO SCH ×2 (08:23→20:40)
[2018-08-16] MEDS: buPROPion SR 150 MG TABLET.ER PO SCH (08:23)
--- NOTE | 2018-08-16 10:36 | P.PN ---
Progress Note - Text Progress Note Date: 08/16/18 Interval history: Patient is seen in cross coverage today. She reports that she typically does well with Risperdal 2 mg daily. She reports that she discussed increasing the Risperdal to 4 mg daily. She reports that she got very much into alternative medicine and relays that she was being spied on by the [employer]. She makes some reference to people becoming abusive. She describes that she was having thoughts of suicide when she came into the hospital. She currently denies any thoughts of suicide. Mental status exam: She is alert and cooperative with the interview. Overall her affect is restricted. She mood hill reports recent thoughts of suicide, denies any current thoughts of suicide. She has thought content that she has been being spied on by the [employer] and makes reference to things becoming abusive. She does not voice any thoughts of harm to others. She does not show any agita tion. Plan: We will maintain Risperdal which is dosed at 2 mg twice a day. She is also on Wellbutrin SR 150 more grams daily. Continue to monitor for any medication side effects and monitor her ongoing response to treatment.
--- NOTE | 2018-08-16 16:05 | P.CON ---
Consult Note - . Assessment/Plan:: Patient adamantly refused to see me because of cultural issues.
[2018-08-17] MEDS: LEVOTHYROXINE 75 MCG TAB PO SCH (06:33)
[2018-08-17] MEDS: LISINOPRIL 10 MG TAB PO SCH (08:17)
[2018-08-17] MEDS: cloNIDine HCL 0.1 MG TAB PO SCH ×2 (08:18→20:26)
[2018-08-17] MEDS: buPROPion SR 150 MG TABLET.ER PO SCH (08:18)
[2018-08-17] MEDS: risperiDONE 2 MG TAB PO SCH ×2 (08:18→20:26)
--- NOTE | 2018-08-17 09:29 | P.PN ---
Progress Note - Text Progress Note Date: 08/17/18 Interval history: Patient is seen in cross coverage again today. She states that she's lost 6 pounds on the unit, relays that she is eating enough. She is attending groups. She does not voice any adverse psychotropic medication side effects. Her mood seems to be improved. She refused medical consultation. Mental status exam: She is alert and cooperative with the interview. She does not show any agitation. Her mood seems to be improved. She denies any thoughts of harm to self or others. When asked about feeling as though she is being spied on, she relays that she feels safe here. She does not verbalize any hallucinations. Plan: Patient will be maintained on current psychotropic medication regimen. We'll continue to monitor for any medication side effects and monitor her ongoing response to treatment.
[2018-08-18] MEDS: LEVOTHYROXINE 75 MCG TAB PO SCH (06:07)
[2018-08-18 06:50] VITALS: RESP 16; TEMP 97.9
[2018-08-18] MEDS: risperiDONE 2 MG TAB PO SCH (09:04)
[2018-08-18] MEDS: LISINOPRIL 10 MG TAB PO SCH (09:04)
[2018-08-18] MEDS: buPROPion SR 150 MG TABLET.ER PO SCH (09:04)
[2018-08-18] MEDS: cloNIDine HCL 0.1 MG TAB PO SCH (09:04)
[2018-08-18 09:06] VITALS: BP 155/80; PULSE 91
--- NOTE | 2018-08-18 11:15 | P.DS ---
Providers Date of admission: 08/14/18 22:10 Expected date of discharge: 08/18/18 Attending physician: Gregorio New DO Consults: 08/14/18 22:23 Consult Physician Routine Consulting Provider: Ric Berkowitz Consult Reason/Comments: H & P and medical care Do you want consulting provider notified?: Yes Primary care physician: Ric Berkowitz - Discharge Diagnosis(es) (1) Bipolar 1 disorder with moderate ryanne Allergies Allergy/AdvReac Type Severity Reaction Status Date / Time meperidine HCl [From Demerol] Allergy Unknown Verified 08/14/18 21:40 olanzapine [From Zyprexa] Allergy Unknown Verified 08/14/18 21:40 paliperidone [From Invega] Allergy Unknown Verified 08/14/18 21:40 Vital Signs Temp 98.9 F 08/15/18 06:25 Pulse 83 08/15/18 06:25 Resp 15 08/15/18 06:25 BP 117/68 08/15/18 06:25 Pulse Ox 95 08/15/18 00:59 Intake & Output 08/14/18 08/15/18 08/15/18 18:59 06:59 18:59 Weight 113.443 kg Laboratory Last Values WBC 8.9 k/uL (3.8-10.6) 08/15/18 09:17 RBC 4.50 m/uL (3.80-5.40) 08/15/18 09:17 Hgb 14.2 gm/dL (11.4-16.0) 08/15/18 09:17 Hct 43.0 % (34.0-46.0) 08/15/18 09:17 MCV 95.6 fL (80.0-100.0) 08/15/18 09:17 MCH 31.4 pg (25.0-35.0) 08/15/18 09:17 MCHC 32.9 g/dL (31.0-37.0) 08/15/18 09:17 RDW 13.8 % (11.5-15.5) 08/15/18 09:17 Plt Count 280 k/uL (150-450) 08/15/18 09:17 Neutrophils % 76 % 08/15/18 09:17 Lymphocytes % 9 % 08/15/18 09:17 Monocytes % 6 % 08/15/18 09:17 Eosinophils % 7 % 08/15/18 09:17 Basophils % 1 % 08/15/18 09:17 Neutrophils # 6.8 k/uL (1.3-7.7) 08/15/18 09:17 Lymphocytes # 0.8 k/uL (1.0-4.8) L 08/15/18 09:17 Monocytes # 0.5 k/uL (0-1.0) 08/15/18 09:17 Eosinophils # 0.6 k/uL (0-0.7) 08/15/18 09:17 Basophils # 0.1 k/uL (0-0.2) 08/15/18 09:17 Chloride 102 mmol/L (98-107) 08/15/18 09:17 Glucose 188 mg/dL (74-99) H 08/15/18 09:17 Total Protein 6.7 g/dL (6.3-8.2) 08/15/18 09: Albumin 4.0 g/dL (3.5-5.0) 08/15/18 09:17 Triglycerides 217 mg/dL (<150) H 08/15/18 09:17 Cholesterol 161 mg/dL (<200) 08/15/18 09:17 Urine Color Yellow 08/14/18 22:00 Urine Appearance Clear (Clear) 08/14/18 22:00 Urine pH 6.0 (5.0-8.0) 08/14/18 22:00 Ur Specific [place] 1.013 (1.001-1.035) 08/14/18 22:00 Urine Protein Negative (Negative) 08/14/18 22:00 Urine Glucose (UA) Negative (Negative) 08/14/18 22:00 Urine Ketones Negative (Negative) 08/14/18 22:00 Urine Blood Negative (Negative) 08/14/18 22:00 Urine Nitrite Negative (Negative) 08/14/18 22:00 Urine Bilirubin Negative (Negative) 08/14/18 22:00 Urine Urobilinogen <2.0 mg/dL (<2.0) 08/14/18 22:00 Ur Leukocyte Esterase Negative (Negative) 08/14/18 22:00 Urine Opiates Screen Not Detected (NotDetected) 08/14/18 22:00 Ur Oxycodone Screen Not Detected (NotDetected) 08/14/18 22:00 Urine Methadone Screen Not Detected (NotDetected) 08/14/18 22:00 Ur Propoxyphene Screen Not Detected (NotDetected) 08/14/18 22:00 Ur Barbiturates Screen Not Detected (NotDetected) 08/14/18 22:00 U Tricyclic Antidepress Not Detected (NotDetected) 08/14/18 22:00 Ur Phencyclidine Scrn Not Detected (NotDetected) 08/14/18 22:00 Ur Amphetamines Screen Not Detected (NotDetected) 08/14/18 22:00 U Methamphetamines Scrn Not Detected (NotDetected) 08/14/18 22:00 U Benzodiazepines Scrn Not Detected (NotDetected) 08/14/18 22:00 Urine Cocaine Screen Not Detected (NotDetected) 08/14/18 22:00 U Marijuana (THC) Screen Not Detected (NotDetected) 08/14/18 22:00 Assessment and Plan (1) Bipolar 1 disorder with moderate ryanne Narrative/Plan: Patient is a pleasant 57-year-old female presenting to the emergency department with hallucinations and suicidal thoughts. Symptoms have been occurring for several days. Patient feels the [employer] or or [employer] is trying to kill her. They are messing with her feet as well as putting in green gas into her living space. Patient does have thoughts of overdosing with her medications. Patient states she is trying to adjust the dosing on her medication however she does not feel it is going well. No homicidal thoughts. No alcohol or street drug use. No new physical complaints. Pt. brings self to ER stating she feels suicidal. Pt. delusional and believes the [employer] is out to get her and may be the ones responsible for the of her brother her in April at the age of 54. "The government is after me and are targeting me through the vent system. They are putting green mist through the vent and using plastics to control my breath." - Related Data Home Medications Medication Instructions Recorded Confirmed Lisinopril [Zestril] 10 mg PO DAILY 11/10/17 08/14/18 Thyroid, Pork [[place] Thyroid] 1 dose PO DIRECTED 08/14/18 08/14/18 buPROPion SR [Wellbutrin SR] 150 mg PO DAILY 08/14/18 08/14/18 cloNIDine HCL [Catapres] 0.1 mg PO HS 08/14/18 08/14/18 risperiDONE [RisperDAL] 4 mg PO DAILY 08/14/18 08/14/18 Allergies Allergy/AdvReac Type Severity Reaction Status Date / Time meperidine HCl [From Demerol] Allergy Unknown Verified 08/14/18 21:40 olanzapine [From Zyprexa] Allergy Unknown Verified 08/14/18 21:40 paliperidone [From Invega] Allergy Unknown Verified 08/14/18 21:40 Past Medical History Past Medical History: Hypertension, Thyroid Disorder History of Any Multi-Drug Resistant Organisms: None Reported Additional Past Surgical History / Comment(s): sinus surgery Past Anesthesia/Blood Transfusion Reactions: No Reported Reaction Past Psychological History: Anxiety, Schizoaffective Disorder, Schizophrenia Smoking Status: Current every day smoker Past Alcohol Use History: Occasional Past Drug Use History: None Reported PAST PSYCHIATRIC HISTORY: She reports that this would be her third inpatient admission. She reports being here in numerous years ago and then later going to [place] for 6 months. She was previously on Risperdal 2 mg daily and Wellbutrin dosage unknown. She was tried on Abilify in the past but it did not "change my brain waves enough to keep them out". She denies any history of suicide attempts. PMH: Possible hypothyroidism she states that she took [place] Thyroid in the past. CHEMICAL DEPENDENCY HISTORY: She reports using alcohol 2-3 times a week having 3-4 glasses of wine on an occasion. She denies using any illicit drugs. She reports she's never been placed in residential treatment for chemical dependency reasons. FAMILY PSYCHIATRIC HISTORY: Her father was known to have depression, no history of suicides in the family. FAMILY CHEMICAL DEPENDENCY HISTORY: None reported SOCIAL HISTORY: The patient is a 57-year-old female. She reports that she lives alone and receives a Social Security income of over $600 a month. She states that she lives in her own apartment. She is unemployed. She has 3 children. She reports that she has 2 associates degrees in a master's from [employer]. Musculoskeletal Examination - Abnormal/Involuntary Movements: [none] Strength: [greater than antigravity (greater than/equal to 3/5) in all extremities] Muscle Tone: [no impairment] Gait: [grossly normal Station: [grossly normal] Mental Status Examination - General Appearance: [ disheveled, bizarre, appears older than stated age Speech/Language: [spontaneous, rapid, rambled, monotone, expressive loud] Attitude/Behavior: [cooperative, guarded, irritable] Mood: [depressed, euphoric, anxious, elated, irritable, angry, fearful, hopelessness, other] Affect: [ lively, flat, labile] Orientation: [time, person, place situation] Thought Content: [ delusions, obsessions, phobias, other] Risk Factors: [she is suicidal (ideations, plan), not Homicidal (ideations, plan)] Perception: [wnl] Thought Processes: [concrete, circumstantial, tangential] Concentration/Attention Span: [ impaired] [Per observation and interview with the patient] Recent Memory: [impaired] [0 out of 3 in 3 minutes] Remote Memory: [wnl] [past events, as related history] Intelligence: [average] [based on history, based on vocabulary, syntax, grammar, and content] Judgement: [poor] [per patient's behavior/history of present illness] Insight: [poor] [understanding severity of illness/history of present illness] Admitting Diagnosis: [bipolar affective disorder-acute psychosis] Current Visit: No Status: Acute Priority: Low Hospital Course: Plan of Care: [admission formal voluntary; 15 minutes checks; medical, psychiatric,nursing and recreational. [place] and milieu environment. She'll be evaluated by medicine, psychiatry, nursing staff, social work and occupational therapy to develop a biopsychosocial evaluation for disposition and discharge pu rposes. She is less manic than her prior hospitalization. ] change risperdal 2 mg po bid; group and learn coping mechanisms Mental status examination time of discharge 08/18/2018 11:14 AM: The patient presents alert, pleasant, and cooperative. There calmly seated without any agitated behavior. [She] reports that [her] mood is good. Affect is congruent and euthymic. [She] deny having any suicidal or homicidal ideation intent or plan. [She] denies any auditory or visual hallucinations. There is no evidence of any delusional thought content. [Her] thought process is linear and goal-directed. [Her] speech is fluent and nonpressured. [Her] memory and concentration is grossly intact for the purposes of this session. Patient Condition at Discharge: Stable Plan - Discharge Summary Discharge Rx Participant: Yes New Discharge Prescriptions: New cloNIDine HCL [Catapres] 0.1 mg PO BID 30 Days #60 tab risperiDONE [RisperDAL] 2 mg PO BID 30 Days #60 tab Levothyroxine Sodium [Synthroid] 75 mcg PO DAILY@0630 tab Continue Lisinopril [Zestril] 10 mg PO DAILY buPROPion SR [Wellbutrin SR] 150 mg PO DAILY 30 Days #30 tablet.er Discontinued cloNIDine HCL [Catapres] 0.1 mg PO HS risperiDONE [RisperDAL] 4 mg PO DAILY Levothyroxine Sodium [Synthroid] 75 mcg PO DAILY Discharge Medication List Lisinopril [Zestril] 10 mg PO DAILY 11/10/17 [History] Levothyroxine Sodium [Synthroid] 75 mcg PO DAILY@0630 tab 08/18/18 [Rx] buPROPion SR [Wellbutrin SR] 150 mg PO DAILY 30 Days #30 tablet.er 08/18/18 [Rx] cloNIDine HCL [Catapres] 0.1 mg PO BID 30 Days #60 tab 08/18/18 [Rx] risperiDONE [RisperDAL] 2 mg PO BID 30 Days #60 tab 08/18/18 [Rx] Follow up Appointment(s)/Referral(s): Ric Berkowitz DO [Primary Care Provider] - 1-2 days Discharge Disposition: HOME SELF-CARE
== END 2018-08-18 13:39 | disposition home or self-care (01) | DRG 885 ==
LOC: EC 20:13 → 3MHU 22:10
PROVIDERS: ADMIT Psychiatry & Neurology Psychiatry; ATTEND Psychiatry & Neurology Psychiatry
DX: F31.2 Bipolar disorder, current episode manic severe with psychotic features (principal); R45.851 Suicidal ideations; I10 Essential (primary) hypertension; E07.9 Disorder of thyroid, unspecified; F41.9 Anxiety disorder, unspecified; F17.210 Nicotine dependence, cigarettes, uncomplicated; Z91.19 Patient's noncompliance with other medical treatment and regimen; Z71.6 Tobacco abuse counseling; Z79.890 Hormone replacement therapy; Z79.899 Other long term (current) drug therapy; Z88.5 Allergy status to narcotic agent; Z88.8 Allergy status to other drugs, medicaments and biological substances; Z81.8 Family history of other mental and behavioral disorders
CPT/HCPCS: 80053; 80061; 80306; 81003; 82075; 82248; 83036; 84443; 85025; 99285

== ENCOUNTER 2019-10-15 22:45 | Inpatient (IN) | payer MEDICARE, OTHER ==
[2019-10-16 00:43] LABS: Amphetamine Screen,Urine Not Detected (NotDetected); Barbiturate Screen,Urine Not Detected (NotDetected); Benzodiazepines Screen,Urine Not Detected (NotDetected); Cocaine Screen,Urine Not Detected (NotDetected); Methadone Screen, Urine Not Detected (NotDetected); Opiate Screen,Urine Not Detected (NotDetected); Oxycodone Screen, Urine Not Detected (NotDetected); Phencyclidine Screen,Urine Not Detected (NotDetected); Tricyclic Antidepressant,Urine Not Detected (NotDetected); Urn Cannabinoid Scrn Not Detected (NotDetected)
--- NOTE | 2019-10-16 02:46 | ED ---
General Adult HPI - General Chief complaint: Psychiatric Symptoms Stated complaint: Mental health Time Seen by Provider: 10/15/19 23:06 Source: patient, RN notes reviewed, old records reviewed Mode of arrival: ambulatory Limitations: no limitations - History of Present Illness Initial comments: 59-year-old female patient of breath CU chief complaint suicidal ideations. Patient was that she has been depressed the last week. She has had fleeting thoughts about hurting soft. She states that she were to do that she would overdose on her Risperdal. She denies any actually herself. Denies any actions or any other people. She denies any other acute complaints at this time. Systemic: Pt denies fatigue, fever/chills, rash. Pt denies weakness, night s weats, weight loss. Neuro: Pt denies headache, visual disturbances, syncope or pre-syncope. HEENT: Pt denies ocular discharge or irritation, otalgia, rhinorrhea, pharyngitis or notable lymphadenopathy. Cardiopulmonary: Pt denies chest pain, SOB, heart palpitations, dyspnea on exertion. Abdominal/GI: Pt denies abdominal pain, n/v/d. : Pt denies dysuria, burning w/ urination, frequency/urgency. Denies new onset urinary or bowel incontinence. MSK: Pt denies myalgia, loss of strength or function in extremities. Neuro: Pt denies new onset weakness, paresthesias. - Related Data Home Medications Medication Instructions Recorded Confirmed Lisinopril [Zestril] 10 mg PO DAILY 11/10/17 08/14/18 Previous Rx's Medication Instructions Recorded Levothyroxine Sodium [Synthroid] 75 mcg PO DAILY@0630 tab 08/18/18 buPROPion SR [Wellbutrin SR] 150 mg PO DAILY 30 Days #30 08/18/18 tablet.er cloNIDine HCL [Catapres] 0.1 mg PO BID 30 Days #60 tab 08/18/18 risperiDONE [RisperDAL] 2 mg PO BID 30 Days #60 tab 08/18/18 Allergies Allergy/AdvReac Type Severity Reaction Status Date / Time meperidine HCl [From Demerol] Allergy Unknown Verified 10/15/19 23:03 olanzapine [From Zyprexa] Allergy Unknown Verified 10/15/19 23:03 paliperidone [From Invega] Allergy Unknown Verified 10/15/19 23:03 Review of Systems ROS Statement: Those systems with pertinent positive or pertinent negative responses have been documented in the HPI. ROS Other: All systems not noted in ROS Statement are negative. Past Medical History Past Medical History: Hypertension, Thyroid Disorder History of Any Multi-Drug Resistant Organisms: None Reported Additional Past Surgical History / Comment(s): sinus surgery Past Anesthesia/Blood Transfusion Reactions: No Reported Reaction Past Psychological History: Anxiety, Schizoaffective Disorder, Schizophrenia Smoking Status: Current every day smoker General Exam - General Exam Comments Initial Comments: Constitutional: NAD, AOX3, Pt has pleasant affect. HEENT: NC/AT, trachea midline, neck supple, no lymphadenopathy. External ears appear normal, without discharge. Mucous membranes moist. Eyes PERRLA, EOM intact. There is no scleral icterus. No pallor noted. Cardiopulmonary: RRR, no murmurs, rubs or gallops, no JVD noted. Lungs CTAB in anterior and posterior tuttle. No peripheral edema. Abdominal exam: Abdomen soft and non-distended. Abdomen non-tender to palpation in all 4 quadrants. Bowel sounds active in LLQ. No hepatosplenomegaly. No ecchymosis Neuro: CN II-XII grossly intact. No nuchal rigidity. No raccon eyes, no lorenzana sign, no hemotympanum. No cervical spinal tenderness. MSK: No posterior calf tenderness bilaterally, homans sign negative bilaterally. Posterior tibialis and radial pulse +2 bilaterally. Sensation intact in upper and lower extremities. Full active ROM in upper and lower extremities, 5/5 stregnth. Limitations: no limitations Course Vital Signs 10/15/19 23:00 Temperature 98.9 F Pulse Rate 90 Respiratory 18 Rate Blood Pressure 141/89 O2 Sat by Pulse 97 Oximetry Medical Decision Making - Medical Decision Making Patient was evaluated by psychiatric services recommended for admission. Patient signed in voluntarily. Case discussed with Dr. Santiago. - Lab Data Lab Results 10/16/19 Range/Units 00:13 Urine Opiates Screen Not Detected (NotDetected) Ur Oxycodone Screen Not Detected (NotDetected) Urine Methadone Screen Not Detected (NotDetected) Ur Propoxyphene Screen Not Detected (NotDetected) Ur Barbiturates Screen Not Detected (NotDetected) U Tricyclic Antidepress Not Detected (NotDetected) Ur Phencyclidine Scrn Not Detected (NotDetected) Ur Amphetamines Screen Not Detected (NotDetected) U Methamphetamines Scrn Not Detected (NotDetected) U Benzodiazepines Scrn Not Detected (NotDetected) Urine Cocaine Screen Not Detected (NotDetected) U Marijuana (THC) Screen Not Detected (NotDetected) Disposition Clinical Impression: Depression Disposition: ADMITTED IP TO THIS [facility] Condition: Serious Is patient prescribed a controlled substance at d/c from ED?: No
[2019-10-16] MEDS ORDERED: LORazepam 1 MG TAB PO PRN (04:15)
[2019-10-16] MEDS ORDERED: ACETAMINOPHEN TAB 325 MG TAB PO PRN (04:15)
[2019-10-16] MEDS ORDERED: MAG HYDROX/AL HYDROX/SIMETH 30 ML CUP PO PRN (04:15)
[2019-10-16] MEDS ORDERED: ZIPRASIDONE 20 MG VIAL IM PRN (04:15)
[2019-10-16] MEDS ORDERED: MAGNESIUM HYDROXIDE 2,400 MG/10 ML CUP PO PRN (04:15)
[2019-10-16] MEDS ORDERED: LORazepam 2 MG/ML INJ IM PRN (04:20)
[2019-10-16] MEDS ORDERED: cloNIDine HCL 0.1 MG TAB PO SCH (09:00)
[2019-10-16] MEDS: LISINOPRIL 20 MG TAB PO SCH (10:32)
[2019-10-16] MEDS: risperiDONE 2 MG TAB PO SCH ×3 (10:32→22:35)
[2019-10-16] MEDS: THYROID, PORK 30 MG TAB PO SCH (10:33)
[2019-10-16] MEDS: buPROPion SR 150 MG TABLET.ER PO SCH (10:33)
[2019-10-16] MEDS: NICOTINE 14MG/24HR PATCH TRANSDERM SCH (10:34)
--- NOTE | 2019-10-16 12:33 | P.HP ---
Psychiatric H&P - . H&P Date: 10/16/19 History & Physical: Allergies Allergy/AdvReac Type Severity Reaction Status Date / Time meperidine HCl From Demerol Allergy Unknown Verified 10/16/19 04:22 olanzapine From Zyprexa Allergy Unknown Verified 10/16/19 04:22 paliperidone From Invega Allergy Unknown Verified 10/16/19 04:22 Vital Signs Temp 98.3 F 10/16/19 05:06 Pulse 79 10/16/19 05:06 Resp 15 10/16/19 05:06 BP 141/77 10/16/19 05:06 Pulse Ox 100 10/16/19 04:56 Intake & Output 10/15/19 10/16/19 10/16/19 18:59 06:59 18:59 Weight 105.347 kg Laboratory Last Values Urine Opiates Screen Not Detected (NotDetected) 10/16/19 00:13 Ur Oxycodone Screen Not Detected (NotDetected) 10/16/19 00:13 Urine Methadone Screen Not Detected (NotDetected) 10/16/19 00:13 Ur Propoxyphene Screen Not Detected (NotDetected) 10/16/19 00:13 Ur Barbiturates Screen Not Detected (NotDetected) 10/16/19 00:13 U Tricyclic Antidepress Not Detected (NotDetected) 10/16/19 00:13 Ur Phencyclidine Scrn Not Detected (NotDetected) 10/16/19 00:13 Ur Amphetamines Screen Not Detected (NotDetected) 10/16/19 00:13 U Methamphetamines Scrn Not Detected (NotDetected) 10/16/19 00:13 U Benzodiazepines Scrn Not Detected (NotDetected) 10/16/19 00:13 Urine Cocaine Screen Not Detected (NotDetected) 10/16/19 00:13 U Marijuana (THC) Screen Not Detected (NotDetected) 10/16/19 00:13 10/16/19 10:18 IDENTIFYING DATA: Patient is a 59-year-old female with a history of bipolar disorder, who currently lives alone in apartment has 3 kids and is currently . HPI: Patient presented to the hospital with complaints of suicidal thoughts and depression for approximately 1 week. Patient reported in the ER that she had plans to overdose on Risperdal. Patient's UDS was negative. Patient was seen wandering on the unit and was agreeable to speak to typewriter assembler and appeared to have bright red lipstick and significant makeup on. She was displaying flight of ideas, paranoia and grandiosity. She spoke about having "a lot of degrees and a lot of projects going on" and states that he "[employer] is tracking me down and using me for my intelligence". She also states that the president is "in on it" and also spoke about government monitoring of her and others. Patient was a logical tangential at times and had racing thoughts. Patient also spoke highly of her education level and gave typewriter assembler her resume to review. She claims that she is sleeping approximately 7-8 hours a night and claims that she has been taking her medications. Patient claims that her mood is "okay now" and denied any depression or anxiety. Patient denies any suicidal or homicidal ideations intent or plan. At this time patient denies any auditory or visual hallucinations. Patient admits to a history of other manic episodes in the past. Patient admits to using cigarettes daily however denies any other recreational drug use. PAST PSYCHIATRIC HISTORY: Patient states that she has history of bipolar disorder. Patient claims that she is on Wellbutrin and Risperdal and has been taking them at home. Patient states that she was last admitted to the mental health unit on 08/2018 patient claims that she follows up at [facility] with Dr. Meléndez. Patient denies any history of suicide attempts in the past. PMH: Thyroid disorder and hypertension ALLERGIES: as per EMR CHEMICAL DEPENDENCY HISTORY: as per HPI FAMILY PSYCHIATRIC/SUBSTANCE USE HISTORY: Father has depression. SOCIAL HISTORY: Patient was born and raised in [place] claims that she completed high school and completed an [employer] in college. She states that she currently lives alone in an apartment has 3 kids and is currently . She is currently collecting Social Security. She denies any legal problems in the past. MENTAL STATUS EXAM: General Appearance: Patient appears to be younger than stated age, overweight with bright red lipstick, alert, directable, and attempts to cooperate. Patient appears to have poor hygiene and grooming. Behavior: Patient is seated without any agitated behavior. Grandiose and expansive. Speech: Patient's speech is fluent and nonpressured. Rapid speech. Mood/Affect: Patient reports their mood is cannot ", affect is congruent and expansive affect. Suicidality/Homicidality: Patient denies having any homicidal ideation intent or plan. Denies any suicidal ideations intent or plan Perceptions: Patient denies any visual hallucinations and denies any auditory hallucinations Though content/process: Several delusions of persecution. Rambles, illogical and tangential. Racing thoughts. Memory and concentration: AOX3, grossly intact for the purposes of this session. Can spell "WORLD" backwards Judgment and insight: poor STRENGTHS/WEAKNESSES: strength is that patient is resilient. Weakness is that patient has poor judgment and is impulsive INTELLECT: average IMPRESSIONS: Bipolar disorder, current episode manic with psychosis. Nicotine dependence PLAN: -Patient is admitted under voluntary status to MHU for stabilization of psychiatric symptoms and safety. Patient signed adult voluntary form and medi cation consent and is placed in patient's chart. -Medications : Will start patient on Risperdal 2 mg twice a day for mood stabilization/psychosis, Wellbutrin 150 mg daily. We'll consider discontinuing Wellbutrin if patient continues to display ryanne. -Ativan and Geodon PRN for agitation/aggression -Patient was informed of the risks, benefits and side effects of the medication and patient verbally consented to taking the medications. Patient signed med consent form and was placed in chart. -Internal Medicine consult to perform medical evaluation and physical. -NRT - nicotine patch -SW on board for discharge planning. Encourage patient to participate in groups to work on coping skills. 10/16/19 12:25
--- NOTE | 2019-10-16 16:46 | P.CONS ---
History of Present Illness - Reason for Consult Recommendations regarding antihypertensive medications - History of Present Illness This is a 59-year-old female admitted for acute psychosis patient appears to be Paranoid to me. Patient has history of bipolar disorder. Patient denied any fever chills nausea vomiting abdominal pain dysuria patient is concerned that had blood pressure is elevated. Patient was on lisinopril and clonidine clonidine is being weaned of appropriately. Patient was started on the earl for better blood pressure control which also provided heart rate control as she is being weaned off clonidine. Review of Systems REVIEW OF SYSTEMS: CONSTITUTIONAL: No fever, no malaise, no fatigue. HEENT: No recent visual problems or hearing problems. Denied any sore throat. CARDIOVASCULAR: No chest pain, orthopnea, PND, no palpitations, no syncope. PULMONARY: No shortness of breath, no cough, no hemoptysis. GASTROINTESTINAL: No diarrhea, no nausea, no vomiting, no abdominal pain. NEUROLOGICAL: No headaches, no weakness, no numbness. HEMATOLOGICAL: Denies any bleeding or petechiae. GENITOURINARY: Denies any burning micturition, frequency, or urgency. MUSCULOSKELETAL/RHEUMATOLOGICAL: Denies any joint pain, swelling, or any muscle pain. ENDOCRINE: Denies any polyuria or polydipsia. The rest of the 14-point review of systems is negative. Past Medical History Past Medical History: Hypertension, Thyroid Disorder History of Any Multi-Drug Resistant Organisms: None Reported Additional Past Surgical History / Comment(s): sinus surgery Past Anesthesia/Blood Transfusion Reactions: No Reported Reaction Past Psychological History: Anxiety, Schizoaffective Disorder, Schizophrenia Smoking Status: Current every day smoker Medications and Allergies Home Medications Medication Instructions Recorded Confirmed Type Lisinopril [Zestril] 10 mg PO DAILY 11/10/17 10/16/19 History Levothyroxine Sodium [Synthroid] 75 mcg PO DAILY@0630 tab 08/18/18 10/16/19 Rx buPROPion SR [Wellbutrin SR] 150 mg PO DAILY 30 Days #30 08/18/18 10/16/19 Rx tablet.er cloNIDine HCL [Catapres] 0.1 mg PO BID 30 Days #60 tab 08/18/18 10/16/19 Rx risperiDONE [RisperDAL] 2 mg PO BID 30 Days #60 tab 08/18/18 10/16/19 Rx Allergies Allergy/AdvReac Type Severity Reaction Status Date / Time meperidine HCl [From Demerol] Allergy Unknown Verified 10/16/19 04:22 olanzapine [From Zyprexa] Allergy Unknown Verified 10/16/19 04:22 paliperidone [From Invega] Allergy Unknown Verified 10/16/19 04:22 Physical Exam Vitals: Vital Signs Temp Pulse Pulse Pulse Resp BP BP 10/16/19 10:30 97.9 F 84 18 171/76 10/16/19 05:06 98.3 F 79 15 10/16/19 04:56 98.4 F 82 17 124/57 10/15/19 23:00 98.9 F 90 18 141/89 BP Pulse Ox 10/16/19 10:30 10/16/19 05:06 141/77 10/16/19 04:56 100 10/15/19 23:00 97 Intake and Output 10/16/19 10/16/19 10/16/19 06:59 14:59 22:59 Other: Weight 105.347 kg PHYSICAL EXAMINATION: GENERAL: The patient is alert and oriented x3, not in any acute distress. Well developed, well nourished. HEENT: Pupils are round and equally reacting to light. EOMI. No scleral icterus. No conjunctival pallor. Normocephalic, atraumatic. No pharyngeal erythema. No thyromegaly. CARDIOVASCULAR: S1 and S2 present. No murmurs, rubs, or gallops. PULMONARY: Chest is clear to auscultation, no wheezing or crackles. ABDOMEN: Soft, nontender, nondistended, normoactive bowel sounds. No palpable organomegaly. MUSCULOSKELETAL: No joint swelling or deformity. EXTREMITIES: No cyanosis, clubbing, or pedal edema. NEUROLOGICAL: Gross neurological examination did not reveal any focal deficits. SKIN: No rashes. Assessment and Plan Plan: -Essential hypertension: Can use lisinopril, discontinue clonidine added Coreg. -Hyperthyroidism -Anxiety disorder, bipolar disorder and acute psychosis: Management as per primary service -Nicotine abuse: Counseling was provided
[2019-10-16] MEDS: CARVEDILOL 3.125 MG TAB PO SCH (18:20)
[2019-10-17] MEDS: THYROID, PORK 30 MG TAB PO SCH (08:54)
[2019-10-17] MEDS: NICOTINE 14MG/24HR PATCH TRANSDERM SCH (08:54)
[2019-10-17] MEDS: CARVEDILOL 3.125 MG TAB PO SCH ×2 (08:54→17:49)
[2019-10-17] MEDS: LISINOPRIL 20 MG TAB PO SCH (08:56)
[2019-10-17] MEDS: risperiDONE 2 MG TAB PO SCH ×2 (08:56→21:39)
[2019-10-17] MEDS: buPROPion SR 150 MG TABLET.ER PO SCH (08:56)
[2019-10-17] MEDS ORDERED: guaiFENesin SYRUP 100MG/5ML 200 MG/10 ML CUP PO PRN (18:01)
--- NOTE | 2019-10-17 18:05 | P.PN ---
Progress Note - Text Progress Note Date: 10/17/19 Subjective: Patient was seen today as a cross coverage for Dr. Shine. The patient was evaluated, chart reviewed, case discussed with the treatment team. Patient reported good sleep last night. Appetite was reported as "fair ". Patient has been going to some groups and other unit activities. The patient is compliant with her medications and denies any adverse reactions. Patient reports feeling much better today and her mind is clear. She denies feeling depressed and she was fully oriented. She denies any suicidal or homicidal thoughts, and he denies any manic or psychotic symptoms. She greatly minimizes her anxiety and denies any mood swings or agitation. She reports has ALLERGY and sometimes comes with very irritating cough for which she used to take Robitussin. Objective: Vitals has been reviewed. Mental status examination; Appearance: The patient appears stated age, adequately groomed and dressed, no specific features. Gait/posture: Normal gait, Normal arm swinging: No abnormal movements. Attitude and behavior: engaged, cooperative, eye contact. Motor activity: Normal psychomotor activity Speech: Normal rate, tone. Mood: Anxious Affect: Constricted Thought form: goal-directed, linear, coherent. Thought content: Non-delusional, denies suicidal thoughts, denies homicidal thoughts, denies intentions or plans. Perception: Denies any auditory or visual hallucinations Attention: No impairment. Orientation: Patient patient was fully oriented to time place person and situation. Insight: Patient has fair insight about her psychiatric disorder. Judgment: Patient has fair judgment about her psychiatric treatment. Assessment: Bipolar disorder, most recent episode manic. Nicotine use disorder. Plan: Continue inpatient level of care due to need for further monitoring and stabilization. Precautions: Continue 15 minutes check for safety. Consider medical consultation if any acute medical issues arise. Provide the patient individual, group therapy, substance use disorder counseling to give better insight and learn coping skills. Continue follow-up with the patient daily to monitor progress of mood instability symptoms. Medications: Risperidone for mood stabilization. Wellbutrin for depression symptoms. Continue when necessary medications for agitation and severe anxiety. Continue non-psychiatric medications for hypertension and hypothyroidism. Discharge patient to OUTPATIENT services upon a stabilization
[2019-10-18] MEDS: CARVEDILOL 3.125 MG TAB PO SCH ×2 (09:06→17:31)
[2019-10-18] MEDS: NICOTINE 14MG/24HR PATCH TRANSDERM SCH ×2 (09:06→09:13)
[2019-10-18] MEDS: THYROID, PORK 30 MG TAB PO SCH (09:07)
[2019-10-18] MEDS: risperiDONE 2 MG TAB PO SCH ×2 (09:09→21:19)
[2019-10-18] MEDS: buPROPion SR 150 MG TABLET.ER PO SCH (09:09)
[2019-10-18] MEDS: LISINOPRIL 20 MG TAB PO SCH (09:09)
[2019-10-18 15:55] LABS: Appearance,Urine Clear (Clear); Bilirubin,Urine Negative (Negative); Blood,Urine Negative (Negative); Color,Urine Colorless; Glucose,Urine (UA) Negative (Negative); Ketones,Urine Negative (Negative); Leukocyte Esterase,Urine Negative (Negative); Nitrite,Urine Negative (Negative); Protein,Urine Negative (Negative); Specific Gravity,Urine 1.003 (1.001-1.035); Urobilinogen,Urine <2.0 mg/dL (<2.0)
--- NOTE | 2019-10-18 16:28 | P.PN ---
Progress Note - Text Progress Note Date: 10/18/19 Subjective: Patient was seen today as a cross coverage for Dr. Shine. The patient was evaluated, chart reviewed, case discussed with the treatment team. Patient reports fair sleep and appetite, continues to go to groups and other unit activities, and taking her medications with no side effects reported. Patient reports generally feeling stable emotionally and denies feeling hopeless or suicidal. Denies any severe mood swings, irritability, or homicidal ideation. Denies any manic or psychotic symptoms. Objective: Vitals has been reviewed. Mental status examination; Appearance: The patient appears stated age, adequately groomed and dressed, no specific features. Gait/posture: Normal gait, Normal arm swinging: No abnormal movements. Attitude and behavior: engaged, cooperative, eye contact. Motor activity: Normal psychomotor activity Speech: Normal rate, tone. Mood: "Fine" Affect: Constricted Thought form: goal-directed, linear, coherent. Thought content: Non-delusional, denies suicidal thoughts, denies homicidal thoughts, denies intentions or plans. Perception: Denies any auditory or visual hallucinations Attention: No impairment. Orientation: Patient patient was fully oriented to time place person and situation. Insight: Patient has fair insight about her psychiatric disorder. Judgment: Patient has fair judgment about her psychiatric treatment. Assessment: Bipolar disorder, most recent episode manic. Nicotine use disorder. Plan: Continue inpatient level of care due to need for further monitoring and stabilization. Precautions: Continue 15 minutes check for safety. Consider medical consultation if any acute medical issues arise. Provide the patient individual, group therapy, substance use disorder counseling to give better insight and learn coping skills. Continue follow-up with the patient daily to monitor progress of mood instability symptoms. Medications: Risperidone for mood stabilization. Wellbutrin for depression symptoms. Continue when necessary medications for agitation and severe anxiety. Continue non-psychiatric medications for hypertension and hypothyroidism. Discharge patient to OUTPATIENT services upon a stabilization
[2019-10-19] MEDS: THYROID, PORK 30 MG TAB PO SCH (06:28)
[2019-10-19] MEDS: CARVEDILOL 3.125 MG TAB PO SCH ×2 (09:13→17:09)
[2019-10-19] MEDS: risperiDONE 2 MG TAB PO SCH ×2 (09:13→21:03)
[2019-10-19] MEDS: buPROPion SR 150 MG TABLET.ER PO SCH (09:13)
[2019-10-19] MEDS: NICOTINE 14MG/24HR PATCH TRANSDERM SCH (09:13)
[2019-10-19] MEDS: LISINOPRIL 20 MG TAB PO SCH (09:13)
--- NOTE | 2019-10-19 10:41 | P.PN ---
Progress Note - Text Progress Note Date: 10/19/19 Interval History: Patient was seen taking part in group this morning and was directable and agre eable to speak with commercial loan underwriter in the office. Patient appeared to be calm and appropriate today during interview. She states that she is finding groups helpful as they were discussing certain topics that pertain to her including procrastination. She states that she had a better weekend and apologized to commercial loan underwriter about being "paranoid" when she first came into the hospital. She states that her paranoia has improved greatly and was not endorsing any delusions today. She claims that she was able to sleep well last night with no overnight complaints. She claims that her mood has been gradually improving. She states that her appetite is fair. At this time patient denies any suicidal or homical ideations, intent or plan. Patient denies any auditory, visual hallucinations. Patient denies any side effects from the medications and has been compliant with meds. Mental Status Exam: General Appearance: Patient appears to be younger than stated age, overweight with bright red lipstick, alert, directable, and attempts to cooperate. Patient appears to have improving hygiene and grooming. Behavior: Patient is seated without any agitated behavior. Attempts to cooperate. Speech: Patient's speech is fluent and nonpressured. Mood/Affect: Patient reports their mood is "better ", affect is congruent and constricted. Suicidality/Homicidality: Patient denies having any homicidal ideation intent or plan. Denies any suicidal ideations intent or plan Perceptions: Patient denies any visual hallucinations and denies any auditory hallucinations Though content/process: Improvement in delusions and paranoia today. More concrete and logical. Memory and concentration: AOX3, grossly intact for the purposes of this session. Judgment and insight: mildly improving. Assessment Bipolar disorder, current episode manic with psychosis. Nicotine dependence Plan: -Patient continues to meet criteria for inpatient psychiatric admission for symptom stabilization and safety. Patient has signed adult voluntary form and medication consent and was placed in patient's chart. -Medications: Continue with Risperdal by mouth 2 mg twice a day for mood stabilization/psychosis, Wellbutrin 150 mg daily for mood. Will speak with patient about possibly transitioning her onto Invega Sustenna to insure compliance. -When necessary Ativan and Geodon for agitation/aggression. -NRT - nicotine patch -SW on board for discharge planning. Encouraged the patient to participate in milieu. Likely discharge in 1-2 days.
[2019-10-19 12:25] LABS: Basophils # (A) 0.1 k/uL (0-0.2); Basophils % (A) 1 %; Eosinophils # (A) 0.4 k/uL (0-0.7); Eosinophils % (A) 5 %; HCT 44.6 % (34.0-46.0); Lymphocytes # (A) 0.8 k/uL (1.0-4.8); Lymphocytes % (A) 10 %; MCH 32.5 pg (25.0-35.0); MCHC 33.8 g/dL (31.0-37.0); MCV 96.1 fL (80.0-100.0); Mean Platelet Volume 7.4; Monocytes # (A) 0.5 k/uL (0-1.0); Monocytes % (A) 7 %; Neutrophils # (A) 5.6 k/uL (1.3-7.7); Neutrophils % (A) 76 %; Platelet Count 271 k/uL (150-450); RBC 4.64 m/uL (3.80-5.40); RDW 12.7 % (11.5-15.5); WBC 7.4 k/uL (3.8-10.6)
[2019-10-19 12:35] LABS: ALT 35 U/L (4-34); AST 30 U/L (14-36); African American GFR (CKD) >90 (>60 ml/min/1.73 sqM); Albumin 4.4 g/dL (3.5-5.0); Alkaline Phosphatase 99 U/L (38-126); Anion Gap 8 mmol/L; Blood Urea Nitrogen 15 mg/dL (7-17); Calcium 9.4 mg/dL (8.4-10.2); Carbon Dioxide 25 mmol/L (22-30); Chloride 104 mmol/L (98-107); Glucose 82 mg/dL (74-99); Non-African American GFR(CKD) >90 (>60 ml/min/1.73 sqM); Potassium 4.7 mmol/L (3.5-5.1); Sodium 137 mmol/L (137-145); Total Bilirubin 0.6 mg/dL (0.2-1.3)
[2019-10-20] MEDS: THYROID, PORK 30 MG TAB PO SCH (06:31)
[2019-10-20 07:09] VITALS: RESP 16; TEMP 98.5
[2019-10-20] MEDS: CARVEDILOL 3.125 MG TAB PO SCH (08:53)
[2019-10-20] MEDS: risperiDONE 2 MG TAB PO SCH (08:54)
[2019-10-20] MEDS: NICOTINE 14MG/24HR PATCH TRANSDERM SCH (08:54)
[2019-10-20] MEDS: LISINOPRIL 20 MG TAB PO SCH (08:54)
[2019-10-20] MEDS: buPROPion SR 150 MG TABLET.ER PO SCH (08:54)
--- NOTE | 2019-10-20 09:21 | P.DS ---
Providers Date of admission: 10/16/19 02:59 Expected date of discharge: 10/20/19 Attending physician: Eliezer Shine MD Consults: 10/16/19 04:15 Consult Physician Routine Consulting Provider: Ric Berkowitz Reason/Comments: For H & P for Medical Follow Up Do you want consulting provider notified?: Yes, Notify in am Primary care physician: Ric Berkowitz - Discharge Diagnosis(es) (1) Bipolar affective, manic, severe w/ psych Current Visit: Yes Status: Acute Priority: High Hospital Course: Admission HPI: Patient is a 59-year-old female with a history of bipolar disorder, who currently lives alone in apartment has 3 kids and is currently . Patient presented to the hospital with complaints of suicidal thoughts and depression for approximately 1 week. Patient reported in the ER that she had plans to overdose on Risperdal. Patient's UDS was negative. Patient was seen wandering on the unit and was agreeable to speak to radio script writer and appeared to have bright red lipstick and significant makeup on. She was displaying flight of ideas, paranoia and grandiosity. She spoke about having "a lot of degrees and a lot of projects going on" and states that he "[employer] is tracking me down and using me for my intelligence". She also states that the president is "in on it" and also spoke about government monitoring of her and others. Patient was a logical tangential at times and had racing thoughts. Patient also spoke highly of her education level and gave radio script writer her resume to review. She claims that she is sleeping approximately 7-8 hours a night and claims that she has been taking her medications. Patient claims that her mood is "okay now" and denied any depression or anxiety. Patient denies any suicidal or homicidal ideations intent or plan. At this time patient denies any auditory or visual hallucinations. Patient admits to a history of other manic episodes in the past. Patient admits to using cigarettes daily however denies any other recreational drug use. Hospital course: Upon admission to the unit patient was initially psychotic/delusional, bizarre and manic. Patient was however directable and agreeable to commence treatment. Patient got along well with other patients on the unit and followed unit protocol. Patient was compliant with the medications and denied any side effects throughout hospital course. Patient was started on Risperdal by mouth and titrated to a dose of 2 mg every morning +1 mg daily at bedtime for psychosis/mood stabilization and also started on Wellbutrin 150 mg daily for mood. Patient was offered Invega Sustenna long-acting injection to ensure compliance however patient declined and would rather take by mouth medications at this time. Patient spoke of her stressors and engaged in therapy both group and individual. Patient was also seen by medical team for history and physical exam. Throughout the course of the hospitalization patient gradually improved with regards to mood, psychosis/delusions, sleep and became future oriented with improved insight and judgment. On the day of discharge patient denied any suicidal or homicidal ideations intent or plan denied any auditory or visual hallucinations. Patient endorsed wanting to live for her future and her health. The patient denied any access to guns or weapons. Patient denied any paranoia and did not endorse any delusions. Patient does not have a significant history of substance abuse however was counseled on abstaining from all substances including alcohol and marijuana. Patient was also counseled on the medications and need for regular compliance and was encouraged to follow-up with their outpatient appointment for mental health and also for primary care. Prior to discharge a family meeting will be arranged by social media marketing analyst to answer any questions and ensure safety upon discharge. Mental status exam: General Appearance: Patient appears to be overweight, younger than stated age is alert, pleasant, and cooperative. Patient is in no acute distress and has fair hygiene and grooming Behavior: Patient is calmly seated without any agitated behavior. Cooperative. Speech: Patient's speech is fluent and nonpressured. Mood/Affect: Patient reports their mood is "better", affect is congruent and euthymic. Suicidality/Homicidality: Patient denies having any suicidal or homicidal ideation intent or plan. Perceptions: Patient denies any auditory or visual hallucinations. Though content/process: There is no evidence of any delusional thought content and thought process is linear and goal-directed. more future oriented Memory and concentration: AOX3, grossly intact for the purposes of this session. Can spell "WORLD" backwards correctly. Judgment and insight: Improved with guarded prognosis Impression: Bipolar disorder, current episode manic severe with psychotic features Nicotine dependence Plan: -Continue with discharge today as patient has improved and stabilized psychiatrically and is not currently an imminent threat to herself and/or others. -Continue medications: Continue with Risperdal 2 mg every morning +1 mg daily at bedtime for psychosis/mood stabilization and continue with Wellbutrin 150 mg daily for mood. -Patient was counseled on the need for medication compliance and appropriate follow-up at mental health and also primary care for medical issues. Patient verbalized understanding and agreed. -Social work to arrange for and conduct family meeting to ensure safety upon dis charge and answer any questions/concerns. Social work also to arrange for patients follow up appointments with [facility] for psychiatric care along with follow up with primary care provider. -Patient counseled on abstaining from recreational drugs and marijuana and alcohol. Was informed/educated on the adverse effects on their physical and mental health. Patient verbally agreed and understood. -Patient was instructed to return to the hospital or seek immediate medical care if their psychiatric or medical symptoms do worsen or reoccur. Vital Signs Temp 98.5 F 10/20/19 07:08 Pulse 63 10/20/19 07:08 Resp 16 10/20/19 07:08 BP 118/60 10/20/19 07:08 Pulse Ox 98 10/20/19 07:08 Allergies Allergy/AdvReac Type Severity Reaction Status Date / Time meperidine HCl [From Demerol] Allergy Unknown Verified 10/16/19 04:22 olanzapine [From Zyprexa] Allergy Unknown Verified 10/16/19 04:22 paliperidone [From Invega] Allergy Unknown Verified 10/16/19 04:22 Laboratory Results WBC 7.4 k/uL (3.8-10.6) 10/19/19 11:50 RBC 4.64 m/uL (3.80-5.40) 10/19/19 11:50 Hgb 15.0 gm/dL (11.4-16.0) 10/19/19 11:50 Hct 44.6 % (34.0-46.0) 10/19/19 11:50 MCV 96.1 fL (80.0-100.0) 10/19/19 11:50 MCH 32.5 pg (25.0-35.0) 10/19/19 11:50 MCHC 33.8 g/dL (31.0-37.0) 10/19/19 11:50 RDW 12.7 % (11.5-15.5) 10/19/19 11:50 Plt Count 271 k/uL (150-450) 10/19/19 11:50 Neutrophils % 76 % 10/19/19 11:50 Lymphocytes % 10 % 10/19/19 11:50 Monocytes % 7 % 10/19/19 11:50 Eosinophils % 5 % 10/19/19 11:50 Basophils % 1 % 10/19/19 11:50 Neutrophils # 5.6 k/uL (1.3-7.7) 10/19/19 11:50 Lymphocytes # 0.8 k/uL (1.0-4.8) L 10/19/19 11:50 Monocytes # 0.5 k/uL (0-1.0) 10/19/19 11:50 Eosinophils # 0.4 k/uL (0-0.7) 10/19/19 11:50 Basophils # 0.1 k/uL (0-0.2) 10/19/19 11:50 Sodium 137 mmol/L (137-145) 10/19/19 11:50 Potassium 4.7 mmol/L (3.5-5.1) 10/19/19 11:50 Chloride 104 mmol/L (98-107) 10/19/19 11:50 Carbon Dioxide 25 mmol/L (22-30) 10/19/19 11:50 Anion Gap 8 mmol/L 10/19/19 11:50 BUN 15 mg/dL (7-17) 10/19/19 11:50 Creatinine 0.62 mg/dL (0.52-1.04) 10/19/19 11:50 Est GFR (CKD-EPI)AfAm >90 (>60 ml/min/1.73 sqM) 10/19/19 11:50 Est GFR (CKD-EPI)NonAf >90 (>60 ml/min/1.73 sqM) 10/19/19 11:50 Glucose 82 mg/dL (74-99) 10/19/19 11:50 Calcium 9.4 mg/dL (8.4-10.2) 10/19/19 11:50 Total Bilirubin 0.6 mg/dL (0.2-1.3) 10/19/19 11:50 AST 30 U/L (14-36) 10/19/19 11:50 ALT 35 U/L (4-34) H 10/19/19 11:50 Alkaline Phosphatase 99 U/L (38-126) 10/19/19 11:50 Total Protein 7.0 g/dL (6.3-8.2) 10/19/19 11:50 Albumin 4.4 g/dL (3.5-5.0) 10/19/19 11:50 TSH 1.990 mIU/L (0.465-4.680) 10/19/19 11:50 Urine Color Colorless 10/18/19 15:00 Urine Appearance Clear (Clear) 10/18/19 15:00 Urine pH 7.0 (5.0-8.0) 10/18/19 15:00 Ur Specific Mobile 1.003 (1.001-1.035) 10/18/19 15:00 Urine Protein Negative (Negative) 10/18/19 15:00 Urine Glucose (UA) Negative (Negative) 10/18/19 15:00 Urine Ketones Negative (Negative) 10/18/19 15:00 Urine Blood Negative (Negative) 10/18/19 15:00 Urine Nitrite Negative (Negative) 10/18/19 15:00 Urine Bilirubin Negative (Negative) 10/18/19 15:00 Urine Urobilinogen <2.0 mg/dL (<2.0) 10/18/19 15:00 Ur Leukocyte Esterase Negative (Negative) 10/18/19 15:00 Urine Opiates Screen Not Detected (NotDetected) 10/16/19 00:13 Ur Oxycodone Screen Not Detected (NotDetected) 10/16/19 00:13 Urine Methadone Screen Not Detected (NotDetected) 10/16/19 00:13 Ur Propoxyphene Screen Not Detected (NotDetected) 10/16/19 00:13 Ur Barbiturates Screen Not Detected (NotDetected) 10/16/19 00:13 U Tricyclic Antidepress Not Detected (NotDetected) 10/16/19 00:13 Ur Phencyclidine Scrn Not Detected (NotDetected) 10/16/19 00:13 Ur Amphetamines Screen Not Detected (NotDetected) 10/16/19 00:13 U Methamphetamines Scrn Not Detected (NotDetected) 10/16/19 00:13 U Benzodiazepines Scrn Not Detected (NotDetected) 10/16/19 00:13 Urine Cocaine Screen Not Detected (NotDetected) 10/16/19 00:13 U Marijuana (THC) Screen Not Detected (NotDetected) 10/16/19 00:13 Patient Condition at Discharge: Stable Plan - Discharge Summary New Discharge Prescriptions: New Thyroid, Pork [Marty Thyroid] 60 mg PO DAILY@0630 30 Days tab Carvedilol [Coreg] 3.125 mg PO BID-W/MEALS 30 Days tab Nicotine 14Mg/24Hr Patch [Habitrol] 1 patch TRANSDERM DAILY 14 Days patch risperiDONE [RisperDAL] 2 mg PO DAILY 30 Days tab risperiDONE [RisperDAL] 1 mg PO HS 30 Days tablet Acetaminophen Tab [Tylenol] 650 mg PO Q4HR PRN tab PRN Reason: Pain/Discomfort buPROPion SR [Wellbutrin SR] 150 mg PO DAILY 30 Days tablet.er Lisinopril [Zestril] 20 mg PO DAILY 30 Days tab Discontinued Lisinopril [Zestril] 10 mg PO DAILY cloNIDine HCL [Catapres] 0.1 mg PO BID 30 Days #60 tab risperiDONE [RisperDAL] 2 mg PO BID 30 Days #60 tab Levothyroxine Sodium [Synthroid] 75 mcg PO DAILY@0630 tab buPROPion SR [Wellbutrin SR] 150 mg PO DAILY 30 Days #30 tablet.er Discharge Medication List Acetaminophen Tab [Tylenol] 650 mg PO Q4HR PRN tab 10/20/19 [Rx] Carvedilol [Coreg] 3.125 mg PO BID-W/MEALS 30 Days tab 10/20/19 [Rx] Lisinopril [Zestril] 20 mg PO DAILY 30 Days tab 10/20/19 [Rx] Nicotine 14Mg/24Hr Patch [Habitrol] 1 patch TRANSDERM DAILY 14 Days patch 10/20/19 [Rx] Thyroid, Pork [Marty Thyroid] 60 mg PO DAILY@0630 30 Days tab 10/20/19 [Rx] buPROPion SR [Wellbutrin SR] 150 mg PO DAILY 30 Days tablet.er 10/20/19 [Rx] risperiDONE [RisperDAL] 1 mg PO HS 30 Days tablet 10/20/19 [Rx] risperiDONE [RisperDAL] 2 mg PO DAILY 30 Days tab 10/20/19 [Rx] Follow up Appointment(s)/Referral(s): Ric Berkowitz DO [Primary Care Provider] - 1-2 days Activity/Diet/Wound Care/Special Instructions: Activity and diet as tolerated. Avoid the use of street drugs and alcohol. Take all medications as prescribed. When you are in need of refills on your medications please contact your medical provider and/or outpatient psychiatrist to have this done. Please go to scheduled outpatient appointment for aftercare treatment. If symptoms return or become worse, call the crisis line at and/or go to the nearest emergency room for evaluation Discharge Disposition: HOME SELF-CARE
[2019-10-20 11:55] VITALS: BP 134/76; PULSE 86
[2019-10-20] MEDS ORDERED: risperiDONE 1 MG TAB PO SCH (21:00)
[2019-10-21] MEDS ORDERED: risperiDONE 2 MG TAB PO SCH (09:00)
== END 2019-10-20 12:28 | disposition home or self-care (01) | DRG 885 ==
LOC: EC 22:45 → 3MHU 10-16 02:59
PROVIDERS: ADMIT Psychiatry & Neurology Psychiatry; ATTEND Psychiatry & Neurology Psychiatry
DX: F31.2 Bipolar disorder, current episode manic severe with psychotic features (principal); F41.9 Anxiety disorder, unspecified; I10 Essential (primary) hypertension; F17.210 Nicotine dependence, cigarettes, uncomplicated; Z60.2 Problems related to living alone; E21.3 Hyperparathyroidism, unspecified; Z79.899 Other long term (current) drug therapy; Z79.890 Hormone replacement therapy; Z88.5 Allergy status to narcotic agent; Z88.8 Allergy status to other drugs, medicaments and biological substances; Z81.8 Family history of other mental and behavioral disorders
CPT/HCPCS: 80053; 80306; 81003; 82075; 84443; 85025; 99285